=== PATIENT | female | born 1960 | race Caucasian/White ===

== ENCOUNTER → 2017-08-05 14:54 | Outpatient (CLI) | payer OTHER, SELFPAY ==
--- NOTE | 2017-08-05 14:56 | BI_ITS ---
MAMMOGRAPHY - BILATERAL SCREENING REASON FOR EXAM: Female, 57 years old. Routine annual screening examination. PERTINENT HISTORY: Grandmother with breast cancer. Aunt with breast cancer. TECHNIQUE: Digital bilateral breast galo (3D mammographic acquisition) in the CC and MLO projections. 2-D mediolateral oblique (MLO) and craniocaudad (CC) views of both breasts were obtained. CAD: Full Field Digital Mammography with Computer Added Detection was performed. COMPARISON: Comparison is made with prior study dated June 11, 2016 and June 03, 2015. FINDINGS: Breast Composition: The breasts are heterogeneously dense, which may obscure small masses. There are no dominant masses or suspicious calcifications. Stable appearance of the small bilateral benign appearing axillary lymph nodes. No other significant abnormalities are identified. There has been no significant change since the prior study. BI/SCREENING MAMM (CAD), BILAT IMPRESSION: Stable bilateral screening mammogram. Yearly follow-up mammogram recommended. (A) ASSESSMENT CATEGORY: BIRADS Category 2: Benign. A letter regarding these results will be sent to the patient by the facility within 30 days. Approximately 10% of breast cancers are not detected by mammography. A normal mammogram should not delay biopsy of a clinically suspicious abnormality. [id number] Electronically Signed: Raheel Gomez MD at 8:44 EDT Tel [phone], Service support ,
== END ==
PROVIDERS: Family Provider Internal Medicine; PCP Internal Medicine; Visit Provider Internal Medicine
DX: Z12.31 Encounter for screening mammogram for malignant neoplasm of breast (principal)
CPT/HCPCS: 77063; 77067

== ENCOUNTER → 2018-04-12 11:04 | Outpatient (CLI) | payer OTHER, SELFPAY ==
[2017-09-14 14:00] VITALS: BMI 23.6
[2018-04-12 11:41] LABS: Hematocrit 40.7 % (37-47); Hemoglobin 13.6 g/dl (12.0-15.0); Mean Corp Hgb Conc 33.4 g/gl (32-36); Mean Corpuscular Volume 89.6 fL (81-99); Platelet Count 260 K/mm3 (150-450); RBC Distribution Width SD 42.5 fl (35.1-43.9); Red Blood Count 4.54 M/mm3 (4.2-5.4); Scan Indicated on CBC? Y/N NO; White Blood Count 4.5 K/mm3 (4.4-11.0)
[2018-04-12 12:14] LABS: ALB/GLOB Ratio 1.2 RATIO (0.9-2.4); AST(SGOT) 16 U/L (15-37); Alanine Aminotransfer ALT/SGPT 18 U/L (13-56); Albumin, Serum 3.9 g/dL (3.2-5.0); Alkaline Phosphatase 72 U/L (45-117); Anion Gap 8 (5-15); BUN 15 mg/dL (7-18); BUN/Creat Ratio 20.9 RATIO (10-20); Calcium,Total 8.4 mg/dL (8.5-10.1); Chloride 103 mmol/L (98-107); Cholesterol 248 mg/dL (200); Creatinine, Serum 0.72 mg/dL (0.55-1.02); EST Glomerular Filtration Rate 89 mL/min (>60); Est Glom Filt Rate - Afr Amer 107 mL/min (>60); Free T3 2.7 pg/mL (2.18-3.98); Globulin 3.2 g/dL (2.2-4.2); Glucose 86 mg/dL (74-106); High Density Lipoprotein 73 mg/dL; Potassium 3.9 mmol/L (3.5-5.1); Protein, Total 7.1 g/dL (6.4-8.2); Sodium Level 141 mmol/L (136-145); Thyroid Stim Hormone (TSH) 1.57 uIU/mL (0.358-3.74); Triglycerides 117 mg/dL; Very Low Density Lipoprotein 23 mg/dL (5-40)
[2018-04-12 12:19] LABS: Vitamin D,25 Hydroxy 49.2 ng/mL (29.95-100.01)
--- OUTSIDE RECORDS SUMMARY | 2018-07-14 19:54 | XMS RPT_ITS ---
:1960 Author Organization OHIP Care Team Providers Name Role Phone MARY SANCHEZ (RESOURCE MANAGEMENT PLANNER) Attending Unavailable TALAMPAS, FILIBERTO D Attending Unavailable Talampas, Filiberto Attending Unavailable Talampas, Filiberto Referring Unavailable Talampas, Filiberto Primary Care Unavailable Talampas, Filiberto Attending Unavailable Talampas, Filiberto Referring Unavailable Talampas, Filiberto Primary Care Unavailable Talampas, Filiberto Attending Unavailable Talampas, Filiberto Referring Unavailable Talampas, Filiberto Primary Care Unavailable Jeanne Barrios Attending Unavailable Talampas, Filiberto Referring Unavailable Talampas, Filiberto Primary Care Unavailable PROBLEMS PROBLEMS DATE TYPE CONDITION / CODE ATTENDING STATUS SOURCE 04/12/2018 Unknown Z00.00 - Encounter Talampas, Filiberto Active [place] for general adult [facility] without abnormal Repository findings / Z00.00(ICD-10) 09/14/2017 Unknown Z01.411 - Encounter Denis Active [place] for gynecological [facility] (general) (routine) Repository with abnormal findings / Z01.411(ICD-10) 09/13/2017 Active Allergic contact MARY SANCHEZ Active [facility] [place] dermatitis due to (RESOURCE MANAGEMENT PLANNER) Main [place] plants, except food Repository / L23.7(ICD-10) 08/05/2017 Unknown Z12.31 - Encounter Filiberto Benitez Active [place] for screening [facility] mammogram for [facility] malignant neoplasm Repository of breast / Z12.31(ICD-10) PROCEDURES PROCEDURES No Procedure Records FoundRESULTS RESULTS DEXA BONE DENSITY Observed: 05/10/2018 Status: F Source: [place] STUDY 11:02 AM [facility] REPOSITORY [facility] Imaging Services [address] [place] [address] Dexa Bone Density Study MR#: [id number] Acct: [id number] Name: CECY HONG Rep #: [id number] : 1960 F 57 From: Raheel Gomez MD PCP: Filiberto eBnitez MD Status: REG CLI Study: Dexa Bone Density Study Date of Exam: 05/10/18 Exam# [id number] Ordering Dr: Filiberto Benitez MD STUDY: DUAL ENERGY X-RAY ABSORPTIOMETRY / DXA REASON FOR EXAM: Female, 57 years old. The patient is postmenopausal. Loss of height. TECHNIQUE: Bone Mineral Density (BMD) measurements of lumbar spine and bilateral hips were obtained. COMPARISON: Comparison is made with prior study dated April 13, 2012. FINDINGS: Lumbar Spine (L1-L4): g/cm2 (0.962) / T-score (-1.8) / Z-score (-0.8) Findings are suggestive of osteopenia with a moderate fracture risk. Left Femur Total: g/cm2 (0.902) / T-score (-0.8) / Z- score (0.0) Left Femoral Neck: g/cm2 (0.950) / T-score (-0.6) / Z- score (0.5) Right Femur Total: g/cm2 (0.954) / T-score (-0.4) / Z- score (0.4) Right Femoral Neck: g/cm2 (0.956) / T-score (-0.6) / Z-score (0.5) The T-Scores on the most recent prior examination were: Lumbar Spine (L1-L4): There has been worsening of bone density since the previous examination. Left Femur Total: which represents a worsening of 5.2%. Right Femur Total: which represents a worsening of 3.7%. BD/Dexa Bone Density Study IMPRESSION: The patient is considered osteopenic as outlined below according to World Werner Organization (WHO) criteria with a moderate fracture risk. There has been worsening of bone density since the previous examination. Reference Information: The T-score is the number of standard deviations above or below the standard which is normal for young adults at their peak bone mineral density. The World Health Organization (WHO) interprets the T-scores as follows: Above -1 Normal bone density Between -1 and -2.5 Osteopenia Equal to / or below -2.5 Osteoporosis As a practical clinical guideline, osteopenia may be graded as follows: Mild -1 through -1.5 Moderate -1.6 through -2.0 Severe -2.1 through -2.4 The Z-score is the number of standard deviations above or below age-matched controls. A Z-score of less than -1.5 would be considered abnormal. References: 1. NIH Osteoporosis and Related Bone Diseases http://www.osteo.org 2. International Society for Clinical Densitometry http://www.iscd.org 3. National Osteoporosis Foundation http://www.nof.org Electronically Signed: Raheel Gomez MD at 10:56 EST Tel [phone], Service support , CC: Filiberto Benitez MD Vp Of Digital Marketing: Signed CBC-COMPLETE BLOOD CNT Collected: 04/12/2018 Status: F Source: [place] NO DIFF 11:15 AM [facility] REPOSITORY TYPE CODE TESTS RESULT OUT OF RANGE REFERENCE UNITS LAB L100.1000 4.4-11.0 K/mm3 Normal WBC 4.5 LAB L100.1200 4.2-5.4 M/mm3 Normal RBC 4.54 LAB L100.1300 12.0-15.0 g/dl Normal HGB 13.6 LAB L100.1400 37-47 % Normal HCT 40.7 LAB L100.1500 81-99 fL Normal MCV 89.6 LAB L100.1600 27.0-32.0 pg Normal MCH 30.0 LAB L100.1700 32-36 g/gl Normal MCHC 33.4 LAB L100.1810 11.6-14.6 % Normal RDW CV 13.0 LAB L100.1820 35.1-43.9 fl Normal RDW SD 42.5 LAB L100.1900 150-450 K/mm3 Normal PLT 260 LAB L100.2000 6.2-12.0 fl Normal MPV 11.0 Performed By: #### L100.0500 #### [facility] [address] [place], [place], [address] COMPREHENSIVE METABOLIC Collected: 04/12/2018 Status: F Source: [facility] 11:15 AM [facility] REPOSITORY TYPE CODE TESTS RESULT OUT OF RANGE REFERENCE UNITS LAB L501.0100 74-106 mg/dL Normal GLU 86 Result Comment: Please note revised GLUCOSE reference range effective 2017. LAB L501.1000 7-18 mg/dL Normal BUN 15 LAB L501.1100 0.55-1.02 mg/dL Normal CREAT,SERUM 0.72 Result Comment: The validity of the calculated GFR AND GFRAA in patients over 70 years has not been determined. Clinical correlation is essential. LAB L501.1110 >60 mL/min Normal EST GFR 89 Result Comment: Non- GFR Calc LAB L501.1115 >60 mL/min Normal EST GFR - AA 107 Result Comment: GFR Calc LAB L501.1300 10-20 RATIO High BUN/CRE 20.9 LAB L501.1500 6.4-8.2 g/dL T Normal PROT 7.1 LAB L501.1800 3.2-5.0 g/dL Normal ALB 3.9 LAB L501.1950 2.2-4.2 g/dL Normal GLOB 3.2 LAB L501.2000 0.9-2.4 RATIO Normal A/G 1.2 LAB L501.2200 8.5-10.1 mg/dL Low CA 8.4 LAB L501.4100 15-37 U/L Normal AST 16 LAB L501.4305 45-117 U/L Normal ALK P 72 LAB L501.4405 13-56 U/L Normal ALT 18 LAB L501.4600 0.20-1.00 mg/dL T Normal BILI 0.50 LAB L501.5300 136-145 mmol/L NA Normal 141 LAB L501.5600 3.5-5.1 mmol/L K Normal 3.9 LAB L501.5900 98-107 mmol/L CL Normal 103 LAB L501.6100 21.0-32.0 mmol/L Normal CO2 30.0 LAB L501.6200 5-15 Normal GAP 8 Performed By: #### L500.4050, L500.4100, L501.75885, L501.9520, L506.0400 #### [facility] [address] [place], [place], [address] LIPID PROFILE Collected: 04/12/2018 Status: F Source: [place] 11:15 AM [facility] REPOSITORY TYPE CODE TESTS RESULT OUT OF RANGE REFERENCE UNITS LAB L501.4900 200 mg/dL High CHOL 248 Result Comment: <200 mg/dL Desirable 200-240 mg/dL Borderline >240 mg/dL High Risk LAB L501.5000 mg/dL Normal TRIG 117 Result Comment: The drugs N-Acetylcysteine and Metamizole may falsely depress this assay. Serum Triglycerides Reference Interval Normal <150 mg/dL Borderline high 150 - 199 mg/dL High 200 - 499 mg/dL Very High > or = 500 mg/dL LAB L501.6400 mg/dL Normal HDL 73 Result Comment: The drugs N-Acetylcysteine and Metamizole may falsely depress this assay. Reference Range HDL <40 mg/dL Low HDL Cholesterol HDL >or= 60 mg/dL High HDL Cholesterol LAB L501.6500 0-130 mg/dL High LDL 152 LAB L501.6600 5-40 mg/dL Normal VLDL 23 Performed By: #### L500.4050, L500.4100, L501.45201, L501.9520, L506.0400 #### [facility] [address] [place], [place], [id number] FREE T3 Collected: 04/12/2018 Status: F Source: [place] 11:15 AM [facility] REPOSITORY TYPE CODE TESTS RESULT OUT OF RANGE REFERENCE UNITS LAB L501.92053 2.18-3.98 pg/mL Normal FREE T3 2.7 Performed By: #### L500.4050, L500.4100, L501.78849, L501.9520, L506.0400 #### [facility] [address] [place], [address] THYROID STIM HORMONE Collected: 04/12/2018 Status: F Source: [place] (TSH) 11:15 AM [facility] REPOSITORY TYPE CODE TESTS RESULT OUT OF RANGE REFERENCE UNITS LAB L501.9520 0.358-3.74 uIU/mL Normal TSH 1.57 Performed By: #### L500.4050, L500.4100, L501.34411, L501.9520, L506.0400 #### [facility] [address] [place], [address] T4 FREE DIRECT Collected: 04/12/2018 Status: F Source: [place] 11:15 AM [facility] REPOSITORY TYPE CODE TESTS RESULT OUT OF RANGE REFERENCE UNITS LAB L506.0400 0.76-1.46 ng/dL Normal T4 FREE 1.10 DIRECT Performed By: #### L500.4050, L500.4100, L501.03429, L501.9520, L506.0400 #### [facility] [address] [place], [place], [address] VITAMIN D,25 HYDROXY Collected: 04/12/2018 Status: F Source: [place] 11:15 AM [facility] REPOSITORY TYPE CODE TESTS RESULT OUT OF RANGE REFERENCE UNITS LAB L506.1000 29.95-100.01 ng/mL Normal Vitamin D 49.2 25-OH Result Comment: Vitamin D 25(OH) Status Range Deficiency <20 ng/mL (50nmol/L) Insuffciency 20 - 30 ng/mL (50 - 75 nmol/L) Sufficiency 30 - 100 ng/mL (75 - 250 nmol/L) Toxicity >100 ng/mL (>250 nmol/L) Performed By: #### L506.1000 #### [facility] [address] [place], [address] PROGRESS Observed: 04/11/2018 Status: COMPLETED Source: [place] 2:24 PM [facility] REPOSITORY HNO ID: [id number] Author: Filiberto Benitez Service: (none) Author Type: Physician Type: Progress Notes Filed: 05/01/2018 7:19 PM Note Text: HISTORY Cecy Hong is a 57 year old lady here for yearly exam and follow up appointment. Overall doing well. Clinically euthyroid. PAST MEDICAL HISTORY Diagnosis Date - Benign paroxysmal positional vertigo 06/02/2006 - Carpal tunnel syndrome - Cochlear hearing loss Nov 2008 from cochlear hydrops (resolved; treated by Dr. 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 Gaixola diagnosed - Postmenopausal after 49 years old - Symptomatic menopausal or female climacteric states 2008 - Unspecified hypothyroidism Current Outpatient Prescriptions: calcium carbonate 600 mg-cholecalciferol 200 units (CALCIUM 600 + D,3,) 600 mg(1,500mg) -200 unit tab Take 1 tablet by mouth once daily. cholecalciferol (VITAMIN D3) 1,000 unit tab Take 1 tablet by mouth once daily. estradiol (ESTRACE) 0.01 % (0.1 mg/gram) vaginal cream Use fingertip amount nightly x 2 weeks, then every other night x 2 weeks, then 1-2x weekly for maintenance hydrochlorothiazide 25 mg tablet Take 1 tablet by mouth once daily as needed. for vertigo flare up (Dr. Rubalcava) levothyroxine (SYNTHROID) 88 mcg tablet Take 1 tablet by mouth daily before breakfast. Naproxen Sodium (ALEVE) 220 mg ORAL tablet Take 1 tablet by mouth twice daily as needed. No current facility-administered medications for this visit. ALLERGIES Allergen Reactions - Amoxicillin Rash - Shellfish Vomiting shortness of breath FAMILY HISTORY Problem Relation Age of Onset - Diabetes Mother - Hypertension Mother - Thyroid Mother - Prostate Cancer Father - Hypertension Father - other (skin cancer) Father Part of ear removed; also several on arms - Breast Cancer Paternal Aunt - Cancer Maternal Uncle LUNG - Thyroid Sister - Thyroid Sister - other (bladder cancer) Brother at 62 - Breast Cancer Paternal Grandmother Social History Marital status: Spouse name: Lilliam Years of education: 16 Number of children: 2 Occupational History Occupation Employer Comment [employer] Social History Main Topics Smoking status: Never Smoker Smokeless tobacco: Never Used Alcohol use: Yes Comment: Socially Drug use: No Sexual activity: Yes Partners with: Male control/protection: Condom REVIEW OF SYSTEMS Aside from above, Constitutional, HEENT, CV, PULM, GI, , PSYCH, DERM, HEM/ONC, NEURO negative. PHYSICAL EXAMINATION: Blood pressure 108/74, pulse 76, resp. rate 20, height 165.1 cm (5' 5), weight 64.4 kg (142 lb), last menstrual period 12/24/2009. Estimated body mass index is 23.63 kg/m? as calculated from the following: Height as of this encounter: 165.1 cm (5' 5). Weight as of this encounter: 64.4 kg (142 lb). Last 5 Encounter BP Readings: Date: BP: 04/11/2018 108/74 09/13/2017 120/70 04/09/2017 120/80 01/05/2017 122/70 08/11/2016 108/62 Last 5 Encounter Wt Readings: Date: Wt: 04/11/2018 64.4 kg (142 lb) 09/13/2017 65.3 kg (144 lb) 04/09/2017 65.3 kg (144 lb) 01/05/2017 65.8 kg (145 lb) 08/11/2016 64 kg (141 lb) General appearance: well appearing, in no acute distress, well-hydrated, well nourished Skin: Skin color, texture, turgor normal. No significant rashes or lesions. Head: Normal Eyes: Anicteric sclera. Pupils are equally round and reactive to light. Extraocular movements are intact. Ears: External ears normal. Canals clear. TM's unremarkable. Nose/Sinuses: negative Oropharynx: Lips, mucosa, and tongue normal. Teeth and gums normal. Oropharynx normal. Neck: Neck supple, no adenopathy; thyroid symmetric, normal size, no bruits. Lungs: Lungs clear to auscultation Heart: negative. RRR without murmur, gallop, or rubs. No ectopy. Abdomen: Abdomen soft, non-tender. Bowel sounds normal. No masses, organomegaly Extremities: Extremities normal. No deformities, edema, or skin discoloration. Good capillary refill. Musculoskeletal: grossly normal Peripheral pulses: Normal Neuro: Gait normal. Reflexes normal and symmetric. Sensation grossly intact. No gross focal neurological deficits. Labs reviewed. ASSESSMENT AND PLAN See diagnoses and orders Encounter Diagnosis ICD-10-CM 1. Routine medical exam Z00.00 COMP METABOLIC PANEL CBC TSH BLD T4 FREE/FREE THYROX T3 FREE BLD LIPID PANEL BASIC VITAMIN D 25 HYDROXY 2. Acquired hypothyroidism E03.9 TSH BLD T4 FREE/FREE THYROX T3 FREE BLD 3. Vitamin D deficiency E55.9 VITAMIN D 25 HYDROXY 4. Encounter for long-term current use of medication Z79.899 COMP METABOLIC PANEL CBC 5. Screening, lipid Z13.220 6. Diabetes mellitus screening Z13.1 COMP METABOLIC PANEL 7. Encounter for screening mammogram for breast cancer Z12.31 LC SCREENING W YISEL 8. Asymptomatic postmenopausal status Z78.0 DXA-AXIAL SKELETON Patient here for yearly exam and follow up. Above issues addressed with patient. Patient involved in shared decision making for management of medical issues. History and medications reviewed. Epic updated as needed Refills taken care of and meds adjusted as indicated after reviewed history, exam and labs. Health Maintenance reviewed. Updated record and/or ordered tests as recorded. Encouraged on efforts at healthy diet and regular exercise and adequate sleep. MD Filiberto Good MD CNOV Observed: 04/11/2018 Status: COMPLETED Source: [place] 1:40 PM [facility] [place] REPOSITORY Office Visit (INTMWS) CECY HONG ([id number]) 1960 F Date Time Provider Department 04/11/18 1:40 PM FILIBERTO BENITEZ INTMWS During your visit today, we recorded the following information about you: Pulse Respiration Blood pressure Weight 76/minute 20/minute 108/74 64.4 kg Height 1.651 m Filiberto Benitez MD 05/01/2018 7:19 PM Signed HISTORY Cecy Hong is a 57 year old lady here for yearly exam and follow up appointment. Overall doing well. Clinically euthyroid. PAST MEDICAL HISTORY Diagnosis Date - Benign paroxysmal positional vertigo 06/02/2006 - Carpal tunnel syndrome - Cochlear hearing loss Nov 2008 from cochlear hydrops (resolved; treated by Dr. 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 Gaxiola diagnosed - Postmenopausal after 49 years old - Symptomatic menopausal or female climacteric states 2008 - Unspecified hypothyroidism Current Outpatient Prescriptions: calcium carbonate 600 mg-cholecalciferol 200 units (CALCIUM 600 + D,3,) 600 mg(1,500mg) -200 unit tab Take 1 tablet by mouth once daily. cholecalciferol (VITAMIN D3) 1,000 unit tab Take 1 tablet by mouth once daily. estradiol (ESTRACE) 0.01 % (0.1 mg/gram) vaginal cream Use fingertip amount nightly x 2 weeks, then every other night x 2 weeks, then 1-2x weekly for maintenance hydrochlorothiazide 25 mg tablet Take 1 tablet by mouth once daily as needed. for vertigo flare up (Dr. Rubalcava) levothyroxine (SYNTHROID) 88 mcg tablet Take 1 tablet by mouth daily before breakfast. Naproxen Sodium (ALEVE) 220 mg ORAL tablet Take 1 tablet by mouth twice daily as needed. No current facility-administered medications for this visit. 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 PHYSICAL EXAMINATION: Blood pressure 108/74, pulse 76, resp. rate 20, height 165.1 cm (5' 5), weight 64.4 kg (142 lb), last menstrual period 12/24/2009. Estimated body mass index is 23.63 kg/m? as calculated from the following: Height as of this encounter: 165.1 cm (5' 5). Weight as of this encounter: 64.4 kg (142 lb). Last 5 Encounter BP Readings: Date: BP: 04/11/2018 108/74 09/13/2017 120/70 04/09/2017 120/80 01/05/2017 122/70 08/11/2016 108/62 Last 5 Encounter Wt Readings: Date: Wt: 04/11/2018 64.4 kg (142 lb) 09/13/2017 65.3 kg (144 lb) 04/09/2017 65.3 kg (144 lb) 01/05/2017 65.8 kg (145 lb) 08/11/2016 64 kg (141 lb) General appearance: well appearing, in no acute distress, well-hydrated, well nourished Skin: Skin color, texture, turgor normal. No significant rashes or lesions. Head: Normal Eyes: Anicteric sclera. Pupils are equally round and reactive to light. Extraocular movements are intact. Ears: External ears normal. Canals clear. TM's unremarkable. Nose/Sinuses: negative Oropharynx: Lips, mucosa, and tongue normal. Teeth and gums normal. Oropharynx normal. Neck: Neck supple, no adenopathy; thyroid symmetric, normal size, no bruits. Lungs: Lungs clear to auscultation Heart: negative. RRR without murmur, gallop, or rubs. No ectopy. Abdomen: Abdomen soft, non-tender. Bowel sounds normal. No masses, organomegaly Extremities: Extremities normal. No deformities, edema, or skin discoloration. Good capillary refill. Musculoskeletal: grossly normal Peripheral pulses: Normal Neuro: Gait normal. Reflexes normal and symmetric. Sensation grossly intact. No gross focal neurological deficits. Labs reviewed. ASSESSMENT AND PLAN See diagnoses and orders Encounter Diagnosis ICD-10-CM 1. Routine medical exam Z00.00 COMP METABOLIC PANEL CBC TSH BLD T4 FREE/FREE THYROX T3 FREE BLD LIPID PANEL BASIC VITAMIN D 25 HYDROXY 2. Acquired hypothyroidism E03.9 TSH BLD T4 FREE/FREE THYROX T3 FREE BLD 3. Vitamin D deficiency E55.9 VITAMIN D 25 HYDROXY 4. Encounter for long-term current use of medication Z79.899 COMP METABOLIC PANEL CBC 5. Screening, lipid Z13.220 6. Diabetes mellitus screening Z13.1 COMP METABOLIC PANEL 7. Encounter for screening mammogram for breast cancer Z12.31 LC SCREENING W YISEL 8. Asymptomatic postmenopausal status Z78.0 DXA-AXIAL SKELETON Patient here for yearly exam and follow up. Above issues addressed with patient. Patient involved in shared decision making for management of medical issues. History and medications reviewed. Epic updated as needed Refills taken care of and meds adjusted as indicated after reviewed history, exam and labs. Health Maintenance reviewed. Updated record and/or ordered tests as recorded. Encouraged on efforts at healthy diet and regular exercise and adequate sleep. MD Filiberto Good MD Liza D Talampas, MD 04/11/2018 2:39 PM Signed BONE MINERAL DENSITY PATIENT INSTRUCTIONS Bone mineral density testing measures the amount of calcium in certain parts of your bones. This information determines how strong your bones are. The test is used to detect osteoporosis, a disease in which the bone's mineral content and density are low, increasing a person's risk of fractures. The lumbar spine (lower back) and the hip are the skeletal sites usually examined. For the test, remember that: 1. You cannot take this test if you are . 2. Eat a normal diet on the day of the test. 3. Take your medications as you normally would. 4. DO NOT take calcium supplements (such as Tums) for 24 hours before the test. 5. On the day of the test, leave valuables (jewelry or credit cards) at home. 6. The test should be performed prior to oral, rectal or IV contrast studies, or at least 7 days after any of these studies. For the test, you may be asked to wear a hospital gown. You will lie on your back, on a padded table, in a comfortable position. Generally, you can resume your usual activities immediately. Referring Provider: SELF [200] Allergies As of Date: 04/11/2018 Noted Allergy Reaction AMOXICILLIN 02/26/2005 2 - Rash SHELLFISH 08/03/2006 11 - Vomiting Comments: shortness of breath Date Reviewed: 04/11/2018 Reviewed by: Khadra Luu LPN - Fully Assessed Reason for Visit: Yearly Exam [187] Radiology Mammogram [1485] Cmt: at [facility] Reason For Visit History Recorded Primary Visit Diagnosis:Routine medical exam [Z00.00] Other Visit Diagnoses:Acquired hypothyroidism [E03.9] Vitamin D deficiency [E55.9] Encounter for long-term current use of medication [Z79.899] Screening, lipid [Z13.220] Diabetes mellitus screening [Z13.1] Encounter for screening mammogram for breast cancer [Z12.31] Asymptomatic postmenopausal status [Z78.0] Order(s):COMP METABOLIC PANEL [SQCMP] Order #: [id number] FUTURE CBC [SQCBC] Order #: [id number] FUTURE TSH BLD [SQTSH] Order #: [id number] FUTURE T4 FREE/FREE THYROX [SQFT4] Order #: [id number] FUTURE T3 FREE BLD [SQFREET3] Order #: [id number] FUTURE LIPID PANEL BASIC [SQLIPB] Order #: [id number] FUTURE VITAMIN D 25 HYDROXY [SQVITD] Order #: [id number] FUTURE LC SCREENING W YISEL [[id number]] Order #: [id number] FUTURE DXA-AXIAL SKELETON [[id number]] Order #: [id number] FUTURE Prescriptions as of 04/11/2018 Sig: LEVOTHYROXINE 88 MCG TABLET Take 1 tablet by mouth daily * ESTRADIOL 0.01% (0.1 MG/GRAM)* Use fingertip amount nightly * CHOLECALCIFEROL (VITAMIN D3) * Take 1 tablet by mouth once d* CALCIUM CARBONATE 600 MG (1,5* Take 1 tablet by mouth once d* HYDROCHLOROTHIAZIDE 25 MG TAB* Take 1 tablet by mouth once d* * NAPROXEN SODIUM 220 MG TABLET Take 1 tablet by mouth twice * Medication notes this encounter HYDROCHLOROTHIAZIDE 25 MG TABLET >> Filiberto Benitez MD 04/11/2018 2:37 PM >> FILIBERTO BENITEZ MD WedApr 11, 2018 2:37 PM Has not needed for years. Still has on hand for just in case ALPRAZOLAM 0.5 MG TABLET >> Filiberto Benitez MD 04/11/2018 2:34 PM Never took one Problem List As Of Date 04/11/2018 Noted Resolved Irregular menstrual cycle [N92.6] 02/10/2011 More... FIBROSCLEROSIS OF BREAST [N60.39] Acquired hypothyroidism [E03.9] SCIATICA [M54.30] INVALID FOR* BENIGN PARXYSMAL VERTIGO [H81.10] INVALID FOR* TENSION HEADACHE [G44.209] INVALID FOR* MASS IN BREAST [N63.0] INVALID FOR*02/10/2011 Ocular migraine [G43.809] INVALID FOR* More... CTS (carpal tunnel syndrome) [G56.00] 12/26/2013 More... Neuropathy, ulnar at elbow [G56.20] More... Osteopenia [M85.80] INVALID FOR* Vitamin D deficiency [E55.9] INVALID FOR* Other decreased white blood cell count [D72.818]INVALID FOR* Genital atrophy of female [N94.9] INVALID FOR* Dyspareunia due to medical condition in female *INVALID FOR* Other instructions from your clinician: BONE MINERAL DENSITY PATIENT INSTRUCTIONS Bone mineral density testing measures the amount of calcium in certain parts of your bones. This information determines how strong your bones are. The test is used to detect osteoporosis, a disease in which the bone's mineral content and density are low, increasing a person's risk of fractures. The lumbar spine (lower back) and the hip are the skeletal sites usually examined. For the test, remember that: 1. You cannot take this test if you are . 2. Eat a normal diet on the day of the test. 3. Take your medications as you normally would. 4. DO NOT take calcium supplements (such as Tums) for 24 hours before the test. 5. On the day of the test, leave valuables (jewelry or credit cards) at home. 6. The test should be performed prior to oral, rectal or IV contrast studies, or at least 7 days after any of these studies. For the test, you may be asked to wear a hospital gown. You will lie on your back, on a padded table, in a comfortable position. Generally, you can resume your usual activities immediately. Medications Discontinued During This Encounter ALPRAZolam (XANAX) 0.5 mg tablet 30 t* 0 01/05/2017 04/11/2018 Class: Print RX Route: ORAL Sig: Take 1 tablet by mouth at bedtime as needed. Patient not taking: Reported on 04/11/2018 Disc: Reason for discontinue is not on file. COMPOUNDED PRESCRIPTION 1 Ea* 0 04/09/2017 04/11/2018 Class: Print RX Sig: Lab order: TSH, Free T3 and Free T4 Diagnosis: E03.9 Disc: Reason for discontinue is not on file. COMPOUNDED PRESCRIPTION 1 Ea* 0 12/30/2016 04/11/2018 Class: Print RX Sig: Lab order: TSH, Free T4, Free T3 Diagnosis:E03.9 Due mid Jan 2017 Disc: Reason for discontinue is not on file. COMPOUNDED PRESCRIPTION 2 Pa* 0 12/15/2011 04/11/2018 Class: Print RX Sig: KNEE HIGH COMPRESSION STOCKINGS 20-30 MM. DX: EDEMA 782.3 (dispense 2 pairs) Disc: Reason for discontinue is not on file. desoximetasone (TOPICORT) 0.25 % cre* 30 g 1 09/13/2017 04/11/2018 Route: TOPICAL Sig: Apply 1 application to affected area twice daily. for up to two weeks, then discontinue Patient not taking: Reported on 04/11/2018 Disc: Course of therapy completed predniSONE (DELTASONE) 10 mg tablet 21 t* 0 09/13/2017 04/11/2018 Sig: Take 40 mg x 3 days, 20 mg x 3 days, 10 mg x 3 days. Take with food, once daily Patient not taking: Reported on 04/11/2018 Disc: Course of therapy completed predniSONE (DELTASONE) 2.5 mg tablet 30 t* 0 10/22/2017 04/11/2018 Si mg daily for 5 days then 2.5 mg for 5 days. Extend as directed for recurrence of rash Patient not taking: Reported on 04/11/2018 Disc: Course of therapy completed famotidine (PEPCID) 20 mg tablet 30 t* 0 09/13/2017 04/11/2018 Route: ORAL Sig: Take 1 tablet by mouth at bedtime as needed. Patient not taking: Reported on 04/11/2018 Disc: Course of therapy completed Disposition: Return in about 1 year (around 04/11/2019) for Yearly exam and follow up (40 min). Follow-up and Disposition History Recorded Encounter Status:Closed by FILIBERTO BENITEZ MD on 05/01/18 [facility] OFFICE VISIT Observed: 09/14/2017 Status: F Source: MARIA LUISA REPORT 2:37 PM [facility] [place] REPOSITORY [facility] 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) Chief Complaint: est annual Estimating Manager Required: No Is patient in pain?: No Allergies shellfish derived Allergy (Mild, Verified 09/14/17 14:01) Other amoxicillin [Amoxicillin] Allergy (Verified 01/31/13 09:33) Rash Medications estradiol 0.01% (0.1 mg/gram) vaginal cream See Dose Instructions VAGINAL .COMPLEX #42.5 g 05/31/17 [Rx] calcium carbonate 500 mg calcium (1,250 mg) tablet 500 mg PO BID tab 09/14/17 [History Confirmed 09/14/17] cholecalciferol (vitamin D3) 4,000 unit capsule 4,000 unit PO QDAY 09/14/17 [History Confirmed 09/14/17] levothyroxine 88 mcg tablet 88 mcg PO QDAY 09/14/17 [History Confirmed 09/14/17] Is last menstrual period known: No Post menopausal: Yes Patient : No : No PFSH Medical History Thyroid disorder (Acute) Surgical History History of bilateral carpal tunnel release (Acute) History of delivery (Acute) History of hysteroscopy (Acute) S/P foot surgery, left (Acute) Family History Mother Diabetes Hypertension Father Cancer prostate Social History Smoking Status: Unknown if ever smoked alcohol intake: current details: social substance use type: does not use caffeine: Yes what type of physical activity do you participate in: walking, bicycling frequency: 3-4 times per week seatbelt use: always do you feel safe at home: Yes additional social history: [employer]- Retired Patient is retired Pregancy History 2 Elective abortions Hx Para 2 Spontaneous abortions Past Pregnancies Del. 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 retired, traveling [place], [place]. on estrace for dyspareunia which is working Last PAP: 08/10 History of abnormal PAP: no Last mammogram: done normal History of abnormal mammogram: no Colon cancer screening: up to date Other preventative health care screenings: per pcp Female Reproductive History Questions: Metorrhagia: No, Sexually active: Yes, Dyspareunia: Yes, PCB: No ROS Const Constitutional: Reports as per HPI; denies poor appetite, fatigue, increased appetite, weight gain or weight loss Cardio Card: Denies chest pain Resp Resp: Denies dyspnea or cough GI GI: Reports as per HPI; denies bloating, abdominal pain, constipation, vomiting or nausea : Reports as per HPI and other; denies blood in urine, vaginal odor, vaginal itching, vaginal dryness, vaginal discharge, urinary urgency, urinary incontinence, urinary frequency, pelvic pain, painful urination, difficulty urinating, prolapse symptoms or nipple discharge Skin Skin/Breast: Denies breast pain, breast skin changes, nipple discharge, breast lump or changing lesions Exam Const General: cooperative, healthy appearing, comfortable, no acute distress, well developed, well groomed [facility] Head: normal to inspection, normocephalic Ears: hearing grossly normal bilaterally, external ears normal Nose: external nose normal Face and sinus: normal facial exam Neck Neck: normal visual inspection, full ROM, no lymphadenopathy Thyroid: thyroid normal Chest Chest palpation AND inspection: normal inspection of the chest Breast inspection: normal inspection of the breasts, normal inspection of the axillae Breast palpation: normal palpation of the breasts, normal palpation of the axillae, no axillary lymphadenopathy Resp Effort AND Inspection: normal respiratory effort GI Inspection: normal to inspection, non-distended Palpation: no guarding, soft, no hepatosplenomegaly General: bladder normal to palpation External Female Exam: normal external appearance (thin skin perineum), normal appearance of the urethra, no lesions Urethra: normal appearance of the urethra, normal palpation Speculum Exam - Vagina: normal appearance of the vagina, normal vaginal discharge Speculum Exam - Cervix: normal appearance of the cervix, no cervical discharge, no lesions, nontender Bimanual Exam- Vagina AND Uterus: No cervical tenderness, normal bimanual exam, uterine size normal, bladder normal to palpation, uterine mobility normal, uterine consistency normal, uterus non-tender, no cervical motion tenderness Bimanual Exam- Adnexa, other: normal adnexae, no adnexal masses, adnexae non-tender Skin General: no rashes or lesions noted Neuro General: alert, moves all extremities, no focal motor deficits Extrem General: no pedal edema, normal to inspection Psych Appearance: grossly normal Mental Status: mental status grossly normal Affect: normal affect Speech and Movement: speech and movement normal Attitude: cooperative Assessment AND Plan Problems 1. Encounter for gynecological examination with abnormal finding Z01.411 2. Dyspareunia thinning skin of perineum, estrace Plan Cervical cancer screening: up to date pap 2017 Breast cancer screening: mamm up to date other health maintenance examination reviewed and up to date. Encouraged maintenance of a healthy weight and active lifestyle and handout given. Calcium/vitamin D recommendations provided. Annual exam handout including recommendations for good health guidelines and basic screening information given. Problem list up to date, see problem list details for any additional plan information. Follow up in one year for annual health maintenance exam or sooner if needed. Coding Level of Care Code Off vis,est,prev 40-64yrs Diagnoses Encounter for gynecological examination with abnormal finding Z01.411 Gynecological examination findings: abnormal findings PRESENT Dyspareunia 09/14/17 1437 <Electronically signed by Jeanne Barrios MD> Date Jeanne Barrios MD Cosigner Signature: Date (if applicable) CC: SAVITAOV Observed: 09/13/2017 Status: COMPLETED Source: [place] 11:00 AM [facility] [place] REPOSITORY Office Visit (INTMWS) CECY HONG ([id number]) 1960 F Date Time Provider Department 09/13/17 11:00 AM MARY SANCHEZ ([facility]) INTMWS During your visit today, we recorded the following information about you: Pulse Respiration Blood pressure Weight 76/minute 16/minute 120/70 65.3 kg Mary Sanchez APRN.CNS 09/13/2017 11:47 AM Signed OUTPATIENT VISIT DATE September 13, 2017 OUTPATIENT VISIT TYPE ESTABLISHED PRIMARY CARE PHYSICIAN: Filiberto Benitez MD CHIEF COMPLAINT: Patient presents with: Rash History of Present Illness: Cecy Hong is a 57 year old female who was last seen March 2017 by primary doctor. 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 She reports treating at home with anti-itch cream with proxyine and Caladryl. She's also been taking Claritin. Benadryl at night. Has gotten some relief. Rash seems to be improving in some areas but spreading to new areas for the last couple of days.. Initially showed up on her arms and near both knees now present on her abdomen and back. No shortness of breath present.No report of new exposures, recent contact with unusual or new material, recent changes in detergents, soap, or shampoo, any recent sore throats or illnesses, travel, new medications, allergies, other family members with the same type of rash, febrile illnesses, using new soaps, wearing new clothes or using new medications. She's had this rash in the past been clearing weeds, however this year seems worse. PAST MEDICAL HISTORY Diagnosis Date - Benign paroxysmal positional vertigo 06/02/2006 - Carpal tunnel syndrome - Cochlear hearing loss Nov 2008 from cochlear hydrops (resolved; treated by Dr. 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 Gaxiola diagnosed - Postmenopausal after 49 years old - Symptomatic menopausal or female climacteric states 2008 - Unspecified hypothyroidism PAST SURGICAL HISTORY Procedure Laterality Date - DELIVERY ONLY x2 , low cervical - COLONOSCOP W/ OR W/O [facility] SPEC 2011 Colonoscopy - HYSTEROSCOPY, DIAGNOSTIC (SEPARATE 10/12/2006 Hysteroscopy - PAST SURGICAL HISTORY OF 05/2007 neuroma removed from left foot Dr. Joyner - PAST SURGICAL HISTORY OF 07/2009 basal cell carcinoma excised from forehead - PAST SURGICAL HISTORY OF 06/29/[address]pal tunnel release. Dr. Rafael De Los Santos - PAST SURGICAL HISTORY OF Right carpal tunnel release FAMILY HISTORY Problem Relation Age of Onset - Diabetes Mother - Hypertension Mother - Thyroid Mother - Prostate Cancer Father - Hypertension Father - skin cancer [OTHER] Father Part of ear removed; also several on arms - Breast Cancer Paternal Aunt - Cancer Maternal Uncle LUNG - Thyroid Sister - Thyroid Sister - bladder cancer [OTHER] Brother at 62 - Breast Cancer Paternal Grandmother Social History Substance Use Topics - Smoking status: Never Smoker - Smokeless tobacco: Never Used - Alcohol use Yes Comment: Socially ALLERGIES: ALLERGIES Allergen Reactions - Amoxicillin Rash - Shellfish Vomiting shortness of breath MEDICATIONS desoximetasone (TOPICORT) 0.25 % cream Apply 1 application to affected area twice daily. for up to two weeks, then discontinue predniSONE (DELTASONE) 10 mg tablet Take 40 mg x 3 days, 20 mg x 3 days, 10 mg x 3 days. Take with food, once daily famotidine (PEPCID) 20 mg tablet Take 1 tablet by mouth at bedtime as needed. COMPOUNDED PRESCRIPTION Lab order: TSH, Free T3 and Free T4 Diagnosis: E03.9 levothyroxine (SYNTHROID) 88 mcg tablet Take 1 tablet by mouth daily before breakfast. ALPRAZolam (XANAX) 0.5 mg tablet Take 1 tablet by mouth at bedtime as needed. COMPOUNDED PRESCRIPTION Lab order: TSH, Free T4, Free T3 Diagnosis:E03.9Due mid Jan 2017 estradiol (ESTRACE) 0.01 % (0.1 mg/gram) vaginal cream Use fingertip amount nightly x 2 weeks, then every other night x 2 weeks, then 1-2x weekly for maintenance cholecalciferol (VITAMIN D3) 1,000 unit tab Take 1 tablet by mouth once daily. calcium carbonate 600 mg-cholecalciferol 200 units (CALCIUM 600 + D,3,) 600 mg(1,500mg) -200 unit tab Take 1 tablet by mouth once daily. hydrochlorothiazide 25 mg tablet Take 1 tablet by mouth once daily as needed. for vertigo flare up (Dr. Rubalcava) COMPOUNDED PRESCRIPTION KNEE HIGH COMPRESSION STOCKINGS 20- 30 MM. DX: EDEMA 782.3 (dispense 2 pairs) Naproxen Sodium (ALEVE) 220 mg ORAL tablet Take 1 tablet by mouth twice daily as needed. REVIEW OF SYSTEMS: GENERAL: Negative for: Weight loss or gain, Fever or Chills, Weakness and Sleep difficulties. Physical Examination: BP 120/70 Pulse 76 Resp 16 LMP 12/24/2009 Extended Vitals not filed for this encounter. General appearance: Well appearing, alert, in no acute distress, well-hydrated, well nourished. Skin: Skin color, texture, turgor normal, diffuse confluent erythematous rash over posterior knees bilateral, inner aspect of elbow, scattered raised vesicles over back and chest wall Neuro: Gait normal. . Sensation grossly intact. Reviewed chart, outside records, tests I personally interviewed, confirmed and edited the above information if obtained by others. TESTING: No results found for: GLUC, K, NA, CHLOR, CO2, CREAT, BUN, ANION, CA No results found for: GLUC, K, NA, CHLOR, CO2, CREAT, BUN, ANION, CA, TPROT, ALB, TBILI, ALKPHOS, AST, ALT No results found for: HB, HCT, WBC No results found for: CHOL, HDL, LDL, TG No results found for: HBA1C Ejection Fraction: No results found IMPRESSION: Ms. Hong is a 57 year old woman presents for diffuse rash following weeding. After my examination and review of data, I make the following recommendations. PLAN AND RECOMMENDATIONS: 1. Pruritic erythematous rash - ICD9: 698.8, ICD10: L29.8 Continue with Claritin once daily - DESOXIMETASONE 0.25 % TOPICAL CREAM - apply twice daily for up to 2 weeks - PREDNISONE 10 MG TABLET - taper, take with food - FAMOTIDINE 20 MG TABLET once daily for at least 1 week - CONSULT TO DERMATOLOGY - if not improving in the next few days recommend she see dermatology Advised to go to ER if develops chest pain, shortness of breath, or severe worsening of symptoms. Discussed risks, benefits, alternatives, and potential side effects of medications. Ms. Hong expressed understanding and agreed with the plan. Mary Sanchez APRN.RESOURCE MANAGEMENT PLANNER Referring Provider: SELF [200] Allergies As of Date: 09/13/2017 Noted Allergy Reaction AMOXICILLIN 02/26/2005 2 - Rash SHELLFISH 08/03/2006 11 - Vomiting Comments: shortness of breath Date Reviewed: 09/13/2017 Reviewed by: Cecy Cruz LPN - Fully Assessed Reason for Visit: Rash [1087] Primary Visit Diagnosis:Pruritic erythematous rash [L29.8] Order(s):desoximetasone (TOPICORT) 0.25 % creamApply 1 application to affected area twice daily. for up to two weeks, then discontinueDisp: 30 gRfl: 1 predniSONE (DELTASONE) 10 mg tabletTake 40 mg x 3 days, 20 mg x 3 days, 10 mg x 3 days. Take with food, once dailyDisp: 21 tabletRfl: 0 famotidine (PEPCID) 20 mg tabletTake 1 tablet by mouth at bedtime as needed.Disp: 30 tabletRfl: 0 CONSULT TO DERMATOLOGY [9006] Order #: [id number]: 1 Prescriptions as of 09/13/2017 Sig: DESOXIMETASONE 0.25 % TOPICAL* Apply 1 application to affect* PREDNISONE 10 MG TABLET Take 40 mg x 3 days, 20 mg x * FAMOTIDINE 20 MG TABLET Take 1 tablet by mouth at bed* COMPOUNDED PRESCRIPTION Lab order: TSH, Free T3 and * LEVOTHYROXINE 88 MCG TABLET Take 1 tablet by mouth daily * ALPRAZOLAM 0.5 MG TABLET Take 1 tablet by mouth at bed* COMPOUNDED PRESCRIPTION Lab order: TSH, Free T4, Shane* ESTRADIOL 0.01% (0.1 MG/GRAM)* Use fingertip amount nightly * CHOLECALCIFEROL (VITAMIN D3) * Take 1 tablet by mouth once d* CALCIUM CARBONATE 600 MG (1,5* Take 1 tablet by mouth once d* HYDROCHLOROTHIAZIDE 25 MG TAB* Take 1 tablet by mouth once d* * COMPOUNDED PRESCRIPTION KNEE HIGH COMPRESSION STOCKIN* * NAPROXEN SODIUM 220 MG TABLET Take 1 tablet by mouth twice * Problem List As Of Date 09/13/2017 Noted Resolved Irregular menstrual cycle [N92.6] 02/10/2011 More... FIBROSCLEROSIS OF BREAST [N60.39] Acquired hypothyroidism [E03.9] SCIATICA [M54.30] INVALID FOR* BENIGN PARXYSMAL VERTIGO [H81.10] INVALID FOR* TENSION HEADACHE [G44.209] INVALID FOR* MASS IN BREAST [N63.0] INVALID FOR*02/10/2011 Ocular migraine [G43.809] INVALID FOR* More... CTS (carpal tunnel syndrome) [G56.00] 12/26/2013 More... Neuropathy, ulnar at elbow [G56.20] More... Osteopenia [M85.80] INVALID FOR* Vitamin D deficiency [E55.9] INVALID FOR* Other decreased white blood cell count [D72.818]INVALID FOR* Genital atrophy of female [N94.9] INVALID FOR* Dyspareunia due to medical condition in female *INVALID FOR* Prescriptions ordered this encounter Disp Refills Start End DESOXIMETASONE 0.25 % TOPICAL CREAM 30 g 1 09/13/2017 Route: TOPICAL Sig: Apply 1 application to affected area twice daily. for up to two weeks, then discontinue PREDNISONE 10 MG TABLET 21 t* 0 09/13/2017 Sig: Take 40 mg x 3 days, 20 mg x 3 days, 10 mg x 3 days. Take with food, once daily FAMOTIDINE 20 MG TABLET 30 t* 0 09/13/2017 Route: ORAL Sig: Take 1 tablet by mouth at bedtime as needed. Encounter Status:Closed by MARY DEXTER on 09/13/17 PROGRESS Observed: 09/13/2017 Status: COMPLETED Source: [place] 9:29 AM [facility] [place] REPOSITORY HNO ID: [id number] Author: Mary (Grace) Daniel Service: (none) Author Type: Nurse Specialist Type: Progress Notes Filed: 09/13/2017 11:47 AM Note Text: OUTPATIENT VISIT DATE September 13, 2017 OUTPATIENT VISIT TYPE ESTABLISHED PRIMARY CARE PHYSICIAN: Filiberto Benitez MD CHIEF COMPLAINT: Patient presents with: Rash History of Present Illness: Cecy Hong is a 57 year old female who was last seen March 2017 by primary doctor. 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 She reports treating at home with anti-itch cream with proxyine and Caladryl. She's also been taking Claritin. Benadryl at night. Has gotten some relief. Rash seems to be improving in some areas but spreading to new areas for the last couple of days.. Initially showed up on her arms and near both knees now present on her abdomen and back. No shortness of breath present.No report of new exposures, recent contact with unusual or new material, recent changes in detergents, soap, or shampoo, any recent sore throats or illnesses, travel, new medications, allergies, other family members with the same type of rash, febrile illnesses, using new soaps, wearing new clothes or using new medications. She's had this rash in the past been clearing weeds, however this year seems worse. PAST MEDICAL HISTORY Diagnosis Date - Benign paroxysmal positional vertigo 06/02/2006 - Carpal tunnel syndrome - Cochlear hearing loss Nov 2008 from cochlear hydrops (resolved; treated by Dr. 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 Gaxiola diagnosed - Postmenopausal after 49 years old - Symptomatic menopausal or female climacteric states 2008 - Unspecified hypothyroidism PAST SURGICAL HISTORY Procedure Laterality Date - DELIVERY ONLY x2 , low cervical - COLONOSCOP W/ OR W/O [facility] SPEC 2011 Colonoscopy - HYSTEROSCOPY, DIAGNOSTIC (SEPARATE 10/12/2006 Hysteroscopy - PAST SURGICAL HISTORY OF 05/2007 neuroma removed from left foot Dr. Joyner - PAST SURGICAL HISTORY OF 07/2009 basal cell carcinoma excised from forehead - PAST SURGICAL HISTORY OF 06/29/2013 Left carpal tunnel release. Dr. Rafael De Los Santos - PAST SURGICAL HISTORY OF Right carpal tunnel release FAMILY HISTORY Problem Relation Age of Onset - Diabetes Mother - Hypertension Mother - Thyroid Mother - Prostate Cancer Father - Hypertension Father - skin cancer [OTHER] Father Part of ear removed; also several on arms - Breast Cancer Paternal Aunt - Cancer Maternal Uncle LUNG - Thyroid Sister - Thyroid Sister - bladder cancer [OTHER] Brother at 62 - Breast Cancer Paternal Grandmother Social History Substance Use Topics - Smoking status: Never Smoker - Smokeless tobacco: Never Used - Alcohol use Yes Comment: Socially ALLERGIES: ALLERGIES Allergen Reactions - Amoxicillin Rash - Shellfish Vomiting shortness of breath MEDICATIONS desoximetasone (TOPICORT) 0.25 % cream Apply 1 application to affected area twice daily. for up to two weeks, then discontinue predniSONE (DELTASONE) 10 mg tablet Take 40 mg x 3 days, 20 mg x 3 days, 10 mg x 3 days. Take with food, once daily famotidine (PEPCID) 20 mg tablet Take 1 tablet by mouth at bedtime as needed. COMPOUNDED PRESCRIPTION Lab order: TSH, Free T3 and Free T4 Diagnosis: E03.9 levothyroxine (SYNTHROID) 88 mcg tablet Take 1 tablet by mouth daily before breakfast. ALPRAZolam (XANAX) 0.5 mg tablet Take 1 tablet by mouth at bedtime as needed. COMPOUNDED PRESCRIPTION Lab order: TSH, Free T4, Free T3 Diagnosis:E03.9Due mid Jan 2017 estradiol (ESTRACE) 0.01 % (0.1 mg/gram) vaginal cream Use fingertip amount nightly x 2 weeks, then every other night x 2 weeks, then 1-2x weekly for maintenance cholecalciferol (VITAMIN D3) 1,000 unit tab Take 1 tablet by mouth once daily. calcium carbonate 600 mg-cholecalciferol 200 units (CALCIUM 600 + D,3,) 600 mg(1,500mg) -200 unit tab Take 1 tablet by mouth once daily. hydrochlorothiazide 25 mg tablet Take 1 tablet by mouth once daily as needed. for vertigo flare up (Dr. Rubalcava) COMPOUNDED PRESCRIPTION KNEE HIGH COMPRESSION STOCKINGS 20- 30 MM. DX: EDEMA 782.3 (dispense 2 pairs) Naproxen Sodium (ALEVE) 220 mg ORAL tablet Take 1 tablet by mouth twice daily as needed. REVIEW OF SYSTEMS: GENERAL: Negative for: Weight loss or gain, Fever or Chills, Weakness and Sleep difficulties. Physical Examination: BP 120/70 Pulse 76 Resp 16 LMP 12/24/2009 Extended Vitals not filed for this encounter. General appearance: Well appearing, alert, in no acute distress, well-hydrated, well nourished. Skin: Skin color, texture, turgor normal, diffuse confluent erythematous rash over posterior knees bilateral, inner aspect of elbow, scattered raised vesicles over back and chest wall Neuro: Gait normal. . Sensation grossly intact. Reviewed chart, outside records, tests I personally interviewed, confirmed and edited the above information if obtained by others. TESTING: No results found for: GLUC, K, NA, CHLOR, CO2, CREAT, BUN, ANION, CA No results found for: GLUC, K, NA, CHLOR, CO2, CREAT, BUN, ANION, CA, TPROT, ALB, TBILI, ALKPHOS, AST, ALT No results found for: HB, HCT, WBC No results found for: CHOL, HDL, LDL, TG No results found for: HBA1C Ejection Fraction: No results found IMPRESSION: Ms. Hong is a 57 year old woman presents for diffuse rash following weeding. After my examination and review of data, I make the following recommendations. PLAN AND RECOMMENDATIONS: 1. Pruritic erythematous rash - ICD9: 698.8, ICD10: L29.8 Continue with Claritin once daily - DESOXIMETASONE 0.25 % TOPICAL CREAM - apply twice daily for up to 2 weeks - PREDNISONE 10 MG TABLET - taper, take with food - FAMOTIDINE 20 MG TABLET once daily for at least 1 week - CONSULT TO DERMATOLOGY - if not improving in the next few days recommend she see dermatology Advised to go to ER if develops chest pain, shortness of breath, or severe worsening of symptoms. Discussed risks, benefits, alternatives, and potential side effects of medications. Ms. Hong expressed understanding and agreed with the plan. Mary Sanchez APRN.RESOURCE MANAGEMENT PLANNER SCREENING MAMM (CAD), Observed: 08/05/2017 Status: F Source: [place] BILAT 2:57 PM [facility] REPOSITORY [facility] Imaging Services [address] [facility] [place] [address] SCREENING MAMM (CAD), BILAT MR#: [id number] Acct: [id number] Name: CECY HONG Rep #: [id number] : 1960 F 57 From: Raheel Gomez MD PCP: Filiberto Benitez MD Status: REG CL Study: SCREENING MAMM (CAD), BILAT Date of Exam: 08/05/17 Exam# [id number] Ordering Dr: Filiberto Benitez MD MAMMOGRAPHY - BILATERAL SCREENING REASON FOR EXAM: Female, 57 years old. Routine annual screening examination. PERTINENT HISTORY: Grandmother with breast cancer. Aunt with breast cancer. TECHNIQUE: Digital bilateral breast yisel (3D mammographic acquisition) in the CC and MLO projections. 2-D mediolateral oblique (MLO) and craniocaudad (CC) views of both breasts were obtained. CAD: Full Field Digital Mammography with Computer Added Detection was performed. COMPARISON: Comparison is made with prior study dated June 11, 2016 and June 03, 2015. FINDINGS: Breast Composition: The breasts are heterogeneously dense, which may obscure small masses. There are no dominant masses or suspicious calcifications. Stable appearance of the small bilateral benign appearing axillary lymph nodes. No other significant abnormalities are identified. There has been no significant change since the prior study. BI/SCREENING MAMM (CAD), BILAT IMPRESSION: Stable bilateral screening mammogram. Yearly follow-up mammogram recommended. (A) ASSESSMENT CATEGORY: BIRADS Category 2: Benign. A letter regarding these results will be sent to the patient by the facility within 30 days. Approximately 10% of breast cancers are not detected by mammography. A normal mammogram should not delay biopsy of a clinically suspicious abnormality. [id number] Electronically Signed: Raheel Gomez MD at 8:44 EDT Tel [phone], Service support , CC: Filiberto Benitez MD Vp Of Digital Marketing: Signed ALLERGIES ALLERGIES DATE TYPE / CODE NAME / CODE REACTION SEVERITY SOURCE 09/14/2017 Drug shellfish Other [place] Allergy/416 derived/[id number] [facility] [id number][facility] 01/31/2013 Drug amoxicillin/S08557 Rash Unknown [place] Allergy/416 3675(RXNORM) [facility] [id number]([facility] ED CT) Repository 08/03/2006 Food/878569 SHELLFISH Vomiting [facility] 000(SNOMED [address] [place]) Repository 02/26/2005 DRUG AMOXICILLIN RASH [facility] INGREDI/[address] [place] 865708(SN Repository ED CT) ENCOUNTERS ENCOUNTERS ADMIT/DISCHARGE ACCOUNT ADMITTING ENCOUNTER LOCATION SOURCE NUMBER CLASS 05/10/[id number] [facility] ing:OPBD Repository 04/12/2018 [id number] [facility] ing:LAB Repository 04/11/2018/05/03/19 [id number] Ambulatory [address] Repository 09/14/2017/09/15/19 [id number] Ambulatory BMSBuilding:B Maria [place]isa [address] Repository 09/13/2017/09/15/19 [id number] Ambulatory [address] Repository 08/05/2017 [id number] Ambulatory [place] [facility] ing:OPBI Repository PAYERS PAYERS ENCOUNTER GUARANTOR PAYER SUBSCRIBER SOURCE 05/10/2018 CECY A Primary CECY A [place] [id number] Insurance:MEDICAL SNIDERDOB: [facility] [id number] Number: Repository [id number]: 330 [id number] [phone] () Date:2317-66-65BE [address] [address]OP: 05/10/2018 Secondary NOT GIVENUNK Maria Luisa Insurance:SELF PAY [facility] Number: Effective Repository Date:2018-05-02 04/12/2018 CECY A Primary CECY A [place] [id number] Insurance:MEDICAL SNIDERDOB: [facility] [id number] Number: Repository [id number]: 330 [id number] [phone] () Date:5337-62-70YV [address] [place] [id number]: 04/12/2018 Secondary NOT GIVENUNK [place] Insurance:SELF PAY [facility] Number: Effective Repository Date:2018-04-12 09/14/2017 CECY A Primary CECY A Maria [place]isa [id number] Insurance:MEDICAL SNIDERDOB: [facility] [id number] Number: Repository [id number]: 330 [id number] [phone] () Date:1320-68-82[address] [address]BA: 09/14/2017 Secondary NOT GIVENUNK Maria Luisa Insurance:SELF PAY [facility] Number: Effective Repository Date:2017-09-14 08/05/2017 CECY A Primary CECY A [place] [id number] Insurance:MEDICAL SNIDERDOB: [facility] [id number] Number: Repository [id number]: [phone] [id number] [phone] () Date:3260-25-72[address]X [address], [place] [address]GU: 08/05/2017 Secondary NOT GIVENUNK Maria Luisa Insurance[facility]: Effective Repository Date:2017-07-13
== END ==
PROVIDERS: Family Provider Internal Medicine; PCP Internal Medicine; Referring Provider Internal Medicine; Visit Provider Internal Medicine
DX: Z00.00 Encounter for general adult medical examination without abnormal findings (principal); Z13.1 Encounter for screening for diabetes mellitus; E03.9 Hypothyroidism, unspecified; E55.9 Vitamin D deficiency, unspecified; Z79.899 Other long term (current) drug therapy
CPT/HCPCS: 36415; 80053; 80061; 82306; 84439; 84443; 84481; 85027

== ENCOUNTER → 2018-05-10 10:56 | Outpatient (CLI) | payer OTHER, SELFPAY ==
--- NOTE | 2018-05-10 11:02 | BD_ITS ---
STUDY: DUAL ENERGY X-RAY ABSORPTIOMETRY / DXA REASON FOR EXAM: Female, 57 years old. The patient is postmenopausal. Loss of height. TECHNIQUE: Bone Mineral Density (BMD) measurements of lumbar spine and bilateral hips were obtained. COMPARISON: Comparison is made with prior study dated April 13, 2012. FINDINGS: Lumbar Spine (L1-L4): g/cm2 (0.962) / T-score (-1.8) / Z-score (-0.8) Findings are suggestive of osteopenia with a moderate fracture risk. Left Femur Total: g/cm2 (0.902) / T-score (-0.8) / Z-score (0.0) Left Femoral Neck: g/cm2 (0.950) / T-score (-0.6) / Z-score (0.5) Right Femur Total: g/cm2 (0.954) / T-score (-0.4) / Z-score (0.4) Right Femoral Neck: g/cm2 (0.956) / T-score (-0.6) / Z-score (0.5) The T-Scores on the most recent prior examination were: Lumbar Spine (L1-L4): There has been worsening of bone density since the previous examination. Left Femur Total: which represents a worsening of 5.2%. Right Femur Total: which represents a worsening of 3.7%. BD/Dexa Bone Density Study IMPRESSION: The patient is considered osteopenic as outlined below according to World Werner Organization (WHO) criteria with a moderate fracture risk. There has been worsening of bone density since the previous examination. Reference Information: The T-score is the number of standard deviations above or below the standard which is normal for young adults at their peak bone mineral density. The World Health Organization (WHO) interprets the T-scores as follows: Above -1 Normal bone density Between -1 and -2.5 Osteopenia Equal to / or below -2.5 Osteoporosis As a practical clinical guideline, osteopenia may be graded as follows: Mild -1 through -1.5 Moderate -1.6 through -2.0 Severe -2.1 through -2.4 The Z-score is the number of standard deviations above or below age-matched controls. A Z-score of less than -1.5 would be considered abnormal. References: 1. NIH Osteoporosis and Related Bone Diseases http://www.osteo.org 2. International Society for Clinical Densitometry http://www.iscd.org 3. National Osteoporosis Foundation http://www.nof.org Electronically Signed: Raheel Gomez MD at 10:56 EST Tel [phone], Service support ,
== END ==
PROVIDERS: Family Provider Internal Medicine; PCP Internal Medicine; Referring Provider Internal Medicine; Visit Provider Internal Medicine
DX: M85.80 Other specified disorders of bone density and structure, unspecified site (principal)
CPT/HCPCS: 77080

== ENCOUNTER → 2018-08-08 11:43 | Outpatient (CLI) | payer OTHER, SELFPAY ==
--- NOTE | 2018-08-08 11:47 | BI_ITS ---
MAMMOGRAPHY - BILATERAL SCREENING REASON FOR EXAM: Female, 58 years old. Routine annual screening examination. PERTINENT HISTORY: Grandmother with breast cancer. Aunt with breast cancer. TECHNIQUE: Digital bilateral breast galo (3D mammographic acquisition) in the CC and MLO projections. 2-D mediolateral oblique (MLO) and craniocaudad (CC) views of both breasts were obtained. CAD: Full Field Digital Mammography with Computer Added Detection was performed. COMPARISON: Comparison is made with prior study dated August 05, 2017 and June 11, 2016. FINDINGS: Breast Composition: The breasts are heterogeneously dense, which may obscure small masses. There are no dominant masses or suspicious calcifications. No other significant abnormalities are identified. There has been no significant change since the prior study. BI/SCREENING MAMM (CAD), BILAT IMPRESSION: Stable bilateral screening mammogram. Yearly follow-up mammogram recommended. (A) ASSESSMENT CATEGORY: BIRADS Category 1: Negative. A letter regarding these results will be sent to the patient by the facility within 30 days. Approximately 10% of breast cancers are not detected by mammography. A normal mammogram should not delay biopsy of a clinically suspicious abnormality. [id number] Electronically Signed: Raheel Gomez, at 12:55 EDT , Service support ,
== END ==
PROVIDERS: Family Provider Internal Medicine; PCP Internal Medicine; Referring Provider Internal Medicine; Visit Provider Internal Medicine
DX: Z12.31 Encounter for screening mammogram for malignant neoplasm of breast (principal)
CPT/HCPCS: 77063; 77067

== ENCOUNTER → 2018-12-06 | Outpatient (CLI) | payer OTHER, SELFPAY ==
[2018-12-06 11:09] VITALS: BMI 23.6
[2018-12-12 11:44] LABS: HPV APTIMA, High Risk Negative (Negative)
== END | disposition home or self-care (01) ==
LOC: LABSPEC 13:51
PROVIDERS: Family Provider Internal Medicine; PCP Internal Medicine; Referring Provider Obstetrics & Gynecology; Visit Provider Obstetrics & Gynecology
DX: Z12.4 Encounter for screening for malignant neoplasm of cervix (principal)
CPT/HCPCS: 87624; 88175; G0145

== ENCOUNTER → 2019-04-13 09:54 | Outpatient (CLI) | payer OTHER, SELFPAY ==
[2018-12-06 11:09] VITALS: BMI 23.6
[2019-04-13 11:29] LABS: Hemoglobin 14.2 g/dL (12.0-15.0); Mean Corpuscular Hgb 29.5 pg (27.0-32.0); Mean Corpuscular Volume 89.2 fL (81-99); Mean Platelet Vol. 11.3 fl (6.2-12.0); Platelet Count 241 K/mm3 (150-450); RBC Distribution Width CV 12.6 % (11.6-14.6); RBC Distribution Width SD 41.8 fl (35.1-43.9); Red Blood Count 4.82 M/mm3 (4.2-5.4); White Blood Count 6.3 K/mm3 (4.4-11.0)
[2019-04-13 12:51] LABS: ALB/GLOB Ratio 1.2 RATIO (0.9-2.4); AST(SGOT) 18 U/L (15-37); Alanine Aminotransfer ALT/SGPT 18 U/L (13-56); Albumin, Serum 4.2 g/dL (3.2-5.0); Alkaline Phosphatase 74 U/L (45-117); Anion Gap 4 (5-15); BUN 14 mg/dL (7-18); BUN/Creat Ratio 18.9 RATIO (10-20); Calcium,Total 8.8 mg/dL (8.5-10.1); Chloride 105 mmol/L (98-107); Cholesterol 248 mg/dL (200); Creatinine, Serum 0.74 mg/dL (0.55-1.02); EST Glomerular Filtration Rate 85 mL/min (>60); Est Glom Filt Rate - Afr Amer 103 mL/min (>60); Free T3 2.8 pg/mL (2.18-3.98); Globulin 3.4 g/dL (2.2-4.2); Glucose 87 mg/dL (74-106); High Density Lipoprotein 77 mg/dL; Protein, Total 7.6 g/dL (6.4-8.2); Sodium Level 138 mmol/L (136-145); T4 Free Direct 1.18 ng/dL (0.76-1.46); Thyroid Stim Hormone (TSH) 1.48 uIU/mL (0.358-3.74); Triglycerides 127 mg/dL; Very Low Density Lipoprotein 25 mg/dL (5-40)
== END ==
PROVIDERS: Family Provider Internal Medicine; PCP Internal Medicine; Referring Provider Internal Medicine; Visit Provider Internal Medicine
DX: R74.0 Nonspecific elevation of levels of transaminase and lactic acid dehydrogenase [LDH] (principal); E55.9 Vitamin D deficiency, unspecified; E03.9 Hypothyroidism, unspecified; Z79.899 Other long term (current) drug therapy
CPT/HCPCS: 36415; 80053; 80061; 82306; 84439; 84443; 84481; 85027

== ENCOUNTER → 2019-09-04 13:55 | Outpatient (CLI) | payer OTHER, SELFPAY ==
[2018-12-06 11:09] VITALS: BMI 23.6
--- NOTE | 2019-09-04 13:56 | BI_ITS ---
MAMMOGRAPHY - BILATERAL SCREENING REASON FOR EXAM: Female, 59 years old. Routine annual screening examination. PERTINENT HISTORY: Grandmother with breast cancer. Aunt with breast cancer. TECHNIQUE: Digital bilateral breast yisel (3D mammographic acquisition) in the CC and MLO projections. 2-D mediolateral oblique (MLO) and craniocaudad (CC) views of both breasts were obtained. CAD: Full Field Digital Mammography with Computer Added Detection was performed. COMPARISON: Comparison is made with prior examination dated August 08, 2018 and August 05, 2017. FINDINGS: Breast Composition: The breasts are heterogeneously dense, which may obscure small masses. There are no dominant masses or suspicious calcifications. Stable benign-appearing bilateral axillary lymph nodes. No other significant abnormalities are identified. There has been no significant change since the prior study. BI/SCREEN MAMM (CAD) W/YISEL BILAT IMPRESSION: Stable bilateral screening mammogram. Yearly follow-up mammogram recommended. (A) ASSESSMENT CATEGORY: BIRADS Category 2: Benign. A letter regarding these results will be sent to the patient by the facility within 30 days. Approximately 10% of breast cancers are not detected by mammography. A normal mammogram should not delay biopsy of a clinically suspicious abnormality. [id number] Electronically Signed: Raheel Gomez, at 14:57 EDT , Service support ,
== END ==
PROVIDERS: PCP Internal Medicine; Referring Provider Obstetrics & Gynecology; Visit Provider Obstetrics & Gynecology
DX: Z12.31 Encounter for screening mammogram for malignant neoplasm of breast (principal); Z80.3 Family history of malignant neoplasm of breast
CPT/HCPCS: 77063; 77067

== ENCOUNTER → 2020-04-08 09:59 | Outpatient (CLI) | payer OTHER, SELFPAY ==
[2020-04-04 13:48] VITALS: BMI 24.4
[2020-04-08 11:37] LABS: Hematocrit 42.1 % (37-47); Hemoglobin 13.6 g/dL (12.0-15.0); Mean Corp Hgb Conc 32.3 g/dL (32-36); Mean Corpuscular Hgb 28.9 pg (27.0-32.0); Mean Corpuscular Volume 89.4 fL (81-99); Mean Platelet Vol. 11.4 fl (6.2-12.0); Platelet Count 259 K/mm3 (150-450); RBC Distribution Width CV 12.5 % (11.6-14.6); RBC Distribution Width SD 41.2 fl (35.1-43.9); Red Blood Count 4.71 M/mm3 (4.2-5.4); White Blood Count 4.4 K/mm3 (4.4-11.0)
[2020-04-08 12:02] LABS: Vitamin D,25 Hydroxy 48.3 ng/mL
[2020-04-08 12:18] LABS: ALB/GLOB Ratio 1.2 RATIO (0.9-2.4); AST(SGOT) 17 U/L (15-37); Alanine Aminotransfer ALT/SGPT 18 U/L (13-56); Alkaline Phosphatase 73 U/L (45-117); Anion Gap 2 (5-15); BUN 9 mg/dL (7-18); BUN/Creat Ratio 13.5 RATIO (10-20); Calcium,Total 8.5 mg/dL (8.5-10.1); Chloride 107 mmol/L (98-107); Cholesterol 241 mg/dL (200); Creatinine, Serum 0.66 mg/dL (0.55-1.02); EST Glomerular Filtration Rate 96 mL/min (>60); Est Glom Filt Rate - Afr Amer 117 mL/min (>60); Free T3 2.4 pg/mL (2.18-3.98); Globulin 3.3 g/dL (2.2-4.2); Glucose 88 mg/dL (74-106); High Density Lipoprotein 67 mg/dL; Protein, Total 7.3 g/dL (6.4-8.2); Sodium Level 139 mmol/L (136-145); T4 Free Direct 1.16 ng/dL (0.76-1.46); Triglycerides 199 mg/dL; Very Low Density Lipoprotein 40 mg/dL (5-40)
== END ==
PROVIDERS: PCP Internal Medicine; Visit Provider Internal Medicine
DX: R74.02 Elevation of levels of lactic acid dehydrogenase [LDH] (principal); E03.9 Hypothyroidism, unspecified; E55.9 Vitamin D deficiency, unspecified; Z79.899 Other long term (current) drug therapy
CPT/HCPCS: 36415; 80053; 80061; 82306; 84439; 84443; 84481; 85027

== ENCOUNTER 2020-07-31 08:41 | Outpatient (RCR) | payer OTHER, SELFPAY ==
[2020-04-04 13:48] VITALS: BMI 24.4
== END 2020-10-01 23:59 ==
LOC: IMMUN 08:41
PROVIDERS: PCP Internal Medicine; Visit Provider Family Medicine
DX: Z23 Encounter for immunization (principal)
CPT/HCPCS: 0001A; 0002A; 91300

== ENCOUNTER → 2021-01-17 11:53 | Outpatient (CLI) | payer OTHER, SELFPAY ==
--- NOTE | 2021-01-17 11:57 | BI_ITS ---
MAMMOGRAPHY - BILATERAL SCREENING REASON FOR EXAM: Female, 60 years old. Routine annual screening examination. PERTINENT HISTORY: Grandmother with breast cancer. Aunt with breast cancer. TECHNIQUE: Digital bilateral breast yisel (3D mammographic acquisition) in the CC and MLO projections. 2-D mediolateral oblique (MLO) and craniocaudad (CC) views of both breasts were obtained. CAD: Full Field Digital Mammography with Computer Added Detection was performed. COMPARISON: Comparison is made with prior examination of 09/04/2019 and 08/08/2018. FINDINGS: Breast Composition: The breasts are heterogeneously dense, which may obscure small masses. There are no dominant masses or suspicious calcifications. Stable small benign-appearing bilateral axillary lymph nodes. No other significant abnormalities are identified. There has been no significant change since the prior study. BI/SCRN MAMM (CAD)W/YISEL BILAT IMPRESSION: Stable bilateral screening mammogram. Yearly follow-up mammogram recommended. (A) ASSESSMENT CATEGORY: BIRADS Category 2: Benign. A letter regarding these results will be sent to the patient by the facility within 30 days. Approximately 10% of breast cancers are not detected by mammography. A normal mammogram should not delay biopsy of a clinically suspicious abnormality. [id number] Electronically Signed: Raheel Gomez MD at 12:36 EDT , Service support ,
== END ==
PROVIDERS: PCP Internal Medicine; Referring Provider Obstetrics & Gynecology; Visit Provider Obstetrics & Gynecology
DX: Z12.31 Encounter for screening mammogram for malignant neoplasm of breast (principal); Z80.3 Family history of malignant neoplasm of breast
CPT/HCPCS: 77063; 77067

== ENCOUNTER → 2021-04-08 10:29 | Outpatient (CLI) | payer OTHER, SELFPAY ==
[2021-04-08 11:07] LABS: Hemoglobin 13.6 g/dL (12.0-15.0); Mean Corp Hgb Conc 33.2 g/dL (32-36); Mean Corpuscular Hgb 29.4 pg (27.0-32.0); Mean Corpuscular Volume 88.6 fL (81-99); Mean Platelet Vol. 10.9 fl (6.2-12.0); Platelet Count 270 K/mm3 (150-450); RBC Distribution Width CV 12.9 % (11.6-14.6); RBC Distribution Width SD 41.9 fl (35.1-43.9); Red Blood Count 4.63 M/mm3 (4.2-5.4)
[2021-04-08 11:39] LABS: ALB/GLOB Ratio 1.1 RATIO (0.9-2.4); AST(SGOT) 15 U/L (15-37); Alanine Aminotransfer ALT/SGPT 20 U/L (13-56); Albumin, Serum 3.8 g/dL (3.2-5.0); Alkaline Phosphatase 73 U/L (45-117); Anion Gap 8 (5-15); BUN 15 mg/dL (7-18); BUN/Creat Ratio 20.8 RATIO (10-20); Calcium,Total 8.5 mg/dL (8.5-10.1); Chloride 103 mmol/L (98-107); Cholesterol 270 mg/dL (200); Creatinine, Serum 0.72 mg/dL (0.55-1.02); EST Glomerular Filtration Rate 87 mL/min (>60); Est Glom Filt Rate - Afr Amer 106 mL/min (>60); Free T3 2.5 pg/mL (2.18-3.98); Globulin 3.4 g/dL (2.2-4.2); Glucose 94 mg/dL (74-106); High Density Lipoprotein 75 mg/dL; Potassium 4.1 mmol/L (3.5-5.1); Protein, Total 7.2 g/dL (6.4-8.2); Sodium Level 139 mmol/L (136-145); T4 Free Direct 1.12 ng/dL (0.76-1.46); Thyroid Stim Hormone (TSH) 1.58 uIU/mL (0.358-3.74); Triglycerides 113 mg/dL; Very Low Density Lipoprotein 23 mg/dL (5-40)
== END ==
PROVIDERS: PCP Internal Medicine; Referring Provider Internal Medicine; Visit Provider Internal Medicine
DX: E78.2 Mixed hyperlipidemia (principal); E03.9 Hypothyroidism, unspecified; Z79.899 Other long term (current) drug therapy
CPT/HCPCS: 36415; 80053; 80061; 84439; 84443; 84481; 85027

== ENCOUNTER 2021-08-01 08:29 | Outpatient (CLI) | payer OTHER, SELFPAY ==
[2021-08-01 10:14] LABS: Cholesterol 221 mg/dL (200); High Density Lipoprotein 74 mg/dL; Triglycerides 94 mg/dL; Very Low Density Lipoprotein 19 mg/dL (5-40)
== END 2021-08-01 23:59 | disposition home or self-care (01) ==
LOC: LAB 08:30
PROVIDERS: PCP Internal Medicine; Referring Provider Internal Medicine; Visit Provider Internal Medicine
DX: E78.5 Hyperlipidemia, unspecified (principal)
CPT/HCPCS: 36415; 80061

== ENCOUNTER → 2021-09-02 | Outpatient (CLI) | payer OTHER, SELFPAY ==
--- NOTE | 2021-09-02 09:26 | BD_ITS ---
STUDY: DUAL ENERGY X-RAY ABSORPTIOMETRY / DXA REASON FOR EXAM: Female, 61 years old. Post menopausal TECHNIQUE: Bone Mineral Density (BMD) measurements of lumbar spine and bilateral hips were obtained. COMPARISON: Comparison is made with prior study dated 05/10/2018. FINDINGS: Lumbar Spine (L1-L4): g/cm2 (0.859) / T-score (-1.7) / Z-score (0.2) Findings are suggestive of osteopenia with a moderate fracture risk. Left Femur Total: g/cm2 (0.804) / T-score (-1.1) / Z-score (-0.1) Left Femoral Neck: g/cm2 (0.727) / T-score (-1.1) / Z-score (0.2) Right Femur Total: g/cm2 (0.881) / T-score (-0.5) / Z-score (0.5) Right Femoral Neck: g/cm2 (0.732) / T-score (-1.1) / Z-score (0.3) The T-Scores on the most recent prior examination were: Lumbar Spine (L1-L4): There has been improvement of bone density since the previous examination. Left Femur Total: which represents a worsening of 4.1%. Right Femur Total: which represents a worsening of 0.9%. BD/Dexa Bone Density Study IMPRESSION: The patient is considered osteopenic as outlined below according to World Werner Organization (WHO) criteria with a moderate fracture risk. There has been worsening of bone density since the previous examination. Reference Information: The T-score is the number of standard deviations above or below the standard which is normal for young adults at their peak bone mineral density. The World Health Organization (WHO) interprets the T-scores as follows: Above -1 Normal bone density Between -1 and -2.5 Osteopenia Equal to / or below -2.5 Osteoporosis As a practical clinical guideline, osteopenia may be graded as follows: Mild -1 through -1.5 Moderate -1.6 through -2.0 Severe -2.1 through -2.4 The Z-score is the number of standard deviations above or below age-matched controls. A Z-score of less than -1.5 would be considered abnormal. References: 1. NIH Osteoporosis and Related Bone Diseases www osteo.org 2. International Society for Clinical Densitometry www iscd.org 3. National Osteoporosis Foundation www nof.org Electronically Signed: Raheel Gomez MD at 9:38 EDT ,
== END | disposition home or self-care (01) ==
LOC: OPBD 09:21
PROVIDERS: PCP Internal Medicine; Referring Provider Internal Medicine; Visit Provider Internal Medicine
DX: Z78.0 Asymptomatic menopausal state (principal); M85.80 Other specified disorders of bone density and structure, unspecified site
CPT/HCPCS: 77080

== ENCOUNTER → 2022-01-27 | Outpatient (CLI) | payer OTHER, SELFPAY ==
--- NOTE | 2022-01-27 12:37 | BI_ITS ---
MAMMOGRAPHY - BILATERAL SCREENING REASON FOR EXAM: Female, 61 years old. Routine annual screening examination. PERTINENT HISTORY: Grandmother with breast cancer. Aunt with breast cancer. TECHNIQUE: Digital bilateral breast yisel (3D mammographic acquisition) in the CC and MLO projections. 2-D mediolateral oblique (MLO) and craniocaudad (CC) views of both breasts were obtained. CAD: Full Field Digital Mammography with Computer Added Detection was performed. COMPARISON: Comparison is made with prior study 01/17/2021 and 09/04/2019. FINDINGS: Breast Composition: The breasts are heterogeneously dense, which may obscure small masses. There are no dominant masses or suspicious calcifications. Stable small benign-appearing bilateral axillary lymph nodes. No other significant abnormalities are identified. There has been no significant change since the prior study. BI/SCRN MAMM (CAD)W/YISEL BILAT IMPRESSION: Stable bilateral screening mammogram. Yearly follow-up mammogram recommended. (A) ASSESSMENT CATEGORY: BIRADS Category 2: Benign. A letter regarding these results will be sent to the patient by the facility within 30 days. Approximately 10% of breast cancers are not detected by mammography. A normal mammogram should not delay biopsy of a clinically suspicious abnormality. [id number] Electronically Signed: Raheel Gomez MD at 13:34 EDT ,
== END | disposition home or self-care (01) ==
LOC: OPBI 12:36
PROVIDERS: PCP Internal Medicine; Visit Provider Nurse Practitioner Women's Health
DX: Z12.31 Encounter for screening mammogram for malignant neoplasm of breast (principal); Z80.3 Family history of malignant neoplasm of breast
CPT/HCPCS: 77063; 77067

== ENCOUNTER → 2022-03-31 | Outpatient (CLI) | payer OTHER, SELFPAY ==
[2022-03-31 09:14] LABS: Absolute Lymphocyte Count 1.63 X10^3/uL (0.83-4.51); Basophil# 0.05 X10^3/uL; Basophil% 1.2 % (0-1); Eosinophils% 2.4 % (0-5); Hematocrit 40.9 % (37-47); Hemoglobin 13.7 g/dL (12.0-15.0); Lymphocyte # 1.63 X10^3/ul (0.83-4.51); Lymphocyte % 38.9 % (19-41); Mean Corp Hgb Conc 33.5 g/dL (32-36); Mean Corpuscular Hgb 29.8 pg (27.0-32.0); Mean Corpuscular Volume 88.9 fL (81-99); Mean Platelet Vol. 11.2 fl (6.2-12.0); Monocyte# 0.41 X10^3/uL; Monocyte% 9.8 % (0-10); NRBC Flagged by Analyzer 0 % (0-5); Neutrophil # 1.97 X10^3/uL (2.7-7.7); Platelet Count 237 K/mm3 (150-450); RBC Distribution Width CV 13.1 % (11.6-14.6); RBC Distribution Width SD 42.7 fl (35.1-43.9); White Blood Count 4.2 K/mm3 (4.4-11.0)
[2022-03-31 09:31] LABS: Vitamin D,25 Hydroxy 47.3 ng/mL
[2022-03-31 09:38] LABS: ALB/GLOB Ratio 1.3 RATIO (0.9-2.4); AST(SGOT) 14 U/L (15-37); Alanine Aminotransfer ALT/SGPT 15 U/L (13-56); Alkaline Phosphatase 65 U/L (45-117); Anion Gap 2 (5-15); BUN 14 mg/dL (7-18); BUN/Creat Ratio 22.7 RATIO (10-20); Calcium,Total 8.7 mg/dL (8.5-10.1); Chloride 105 mmol/L (98-107); Cholesterol 222 mg/dL (200); Creatinine, Serum 0.62 mg/dL (0.55-1.02); EST Glomerular Filtration Rate 104 mL/min (>60); Est Glom Filt Rate - Afr Amer 126 mL/min (>60); Globulin 3.1 g/dL (2.2-4.2); Glucose 100 mg/dL (74-106); High Density Lipoprotein 73 mg/dL; Protein, Total 7.1 g/dL (6.4-8.2); Sodium Level 137 mmol/L (136-145); Thyroid Stim Hormone (TSH) 1.36 uIU/mL (0.358-3.74); Triglycerides 91 mg/dL; Very Low Density Lipoprotein 18 mg/dL (5-40)
== END | disposition home or self-care (01) ==
LOC: LAB 08:54
PROVIDERS: PCP Internal Medicine; Referring Provider Internal Medicine; Visit Provider Internal Medicine
DX: E78.5 Hyperlipidemia, unspecified (principal); E03.9 Hypothyroidism, unspecified; M85.80 Other specified disorders of bone density and structure, unspecified site
CPT/HCPCS: 36415; 80053; 80061; 82306; 84443; 85025

== ENCOUNTER → 2023-01-28 | Outpatient (CLI) | payer OTHER, SELFPAY ==
--- NOTE | 2023-01-28 10:29 | BI_ITS ---
MAMMOGRAPHY - BILATERAL SCREENING REASON FOR EXAM: Female, 62 years old. Routine annual screening examination. PERTINENT HISTORY: Grandmother with breast cancer. Aunt with breast cancer. TECHNIQUE: Digital bilateral breast yisel (3D mammographic acquisition) in the CC and MLO projections. 2-D mediolateral oblique (MLO) and craniocaudad (CC) views of both breasts were obtained. CAD: Full Field Digital Mammography with Computer Added Detection was performed. COMPARISON: Comparison is made with prior study January 27, 2022 and January 17, 2021. FINDINGS: Breast Composition: The breasts are heterogeneously dense, which may obscure small masses. There are no dominant masses or suspicious calcifications. Stable benign-appearing bilateral axillary lymph nodes. No other significant abnormalities are identified. There has been no significant change since the prior study. BI/SCRN MAMM (CAD)W/YISEL BILAT IMPRESSION: Stable bilateral screening mammogram. Yearly follow-up mammogram recommended. (A) ASSESSMENT CATEGORY: BIRADS Category 2: Benign. A letter regarding these results will be sent to the patient by the facility within 30 days. Approximately 10% of breast cancers are not detected by mammography. A normal mammogram should not delay biopsy of a clinically suspicious abnormality. [id number] Electronically Signed: Raheel Gomez MD at 12:08 EDT ,
== END | disposition home or self-care (01) ==
LOC: OPBI 10:28
PROVIDERS: PCP Internal Medicine; Referring Provider Obstetrics & Gynecology; Visit Provider Obstetrics & Gynecology
DX: Z12.31 Encounter for screening mammogram for malignant neoplasm of breast (principal)
CPT/HCPCS: 77063; 77067

== ENCOUNTER → 2023-03-03 | Outpatient (CLI) | payer OTHER, SELFPAY ==
[2023-03-03 12:21] LABS: Absolute Lymphocyte Count 1.32 X10^3/uL (0.83-4.51); Absolute Neutrophil Count 2.3 X10^3/uL (2.0-7.7); Basophil# 0.06 X10^3/uL; Basophil% 1.4 % (0-1); Eosinophil# 0.08 X10^3/uL; Eosinophils% 1.9 % (0-5); Hematocrit 41.8 % (37-47); Hemoglobin 13.4 g/dL (12.0-15.0); Lymphocyte # 1.32 X10^3/ul (0.83-4.51); Lymphocyte % 31.7 % (19-41); Mean Corp Hgb Conc 32.1 g/dL (32-36); Mean Corpuscular Hgb 29.2 pg (27.0-32.0); Mean Corpuscular Volume 91.1 fL (81-99); Mean Platelet Vol. 11.6 fl (6.2-12.0); Monocyte# 0.37 X10^3/uL; Monocyte% 8.9 % (0-10); NRBC Flagged by Analyzer 0 % (0-5); Neutrophil # 2.32 X10^3/uL (2.7-7.7); Neutrophil % 55.6 % (47-70); Platelet Count 239 K/mm3 (150-450); RBC Distribution Width SD 43.7 fl (35.1-43.9); Red Blood Count 4.59 M/mm3 (4.2-5.4); White Blood Count 4.2 K/mm3 (4.4-11.0)
[2023-03-03 12:52] LABS: ALB/GLOB Ratio 1.2 RATIO (0.9-2.4); AST(SGOT) 15 U/L (15-37); Alanine Aminotransfer ALT/SGPT 17 U/L (13-56); Albumin, Serum 3.9 g/dL (3.2-5.0); Alkaline Phosphatase 72 U/L (45-117); Anion Gap 3 (5-15); BUN 13 mg/dL (7-18); BUN/Creat Ratio 20.4 RATIO (10-20); Calcium,Total 8.7 mg/dL (8.5-10.1); Chloride 103 mmol/L (98-107); Cholesterol 244 mg/dL (200); Creatinine, Serum 0.64 mg/dL (0.55-1.02); EST Glomerular Filtration Rate 100 mL/min (>60); Est Glom Filt Rate - Afr Amer 121 mL/min (>60); Globulin 3.2 g/dL (2.2-4.2); Glucose 97 mg/dL (74-106); High Density Lipoprotein 76 mg/dL; Potassium 4.1 mmol/L (3.5-5.1); Protein, Total 7.1 g/dL (6.4-8.2); Sodium Level 135 mmol/L (136-145); Thyroid Stim Hormone (TSH) 1.93 uIU/mL (0.358-3.74); Triglycerides 82 mg/dL; Very Low Density Lipoprotein 16 mg/dL (5-40)
== END | disposition home or self-care (01) ==
LOC: BIMLAB 10:41
PROVIDERS: PCP Internal Medicine; Referring Provider Internal Medicine; Visit Provider Internal Medicine
DX: E03.9 Hypothyroidism, unspecified (principal); E78.5 Hyperlipidemia, unspecified
CPT/HCPCS: 36415; 80053; 80061; 84443; 85025

== ENCOUNTER → 2023-03-31 | Outpatient (CLI) | payer OTHER, SELFPAY ==
--- NOTE | 2023-03-31 13:02 | ECHOD_ITS ---
Reason For Study: Family Hx of Bicuspid AV Procedure This was a 2D Doppler, Color Flow transthoracic echocardiogram. Exam performed in department. Left Ventricle Normal size and thickness. The left ventricular ejection fraction is 65 %. Normal diastology for age. Right Ventricle Normal right ventricle. Atria The left and right atria are normal. Bubble contrast study is negative for PFO/ASD. Mitral Valve Mild (1+) eccentric mitral valve insufficiency. Tricuspid Valve Trivial tricuspid valve insufficiency. Normal pulmonary artery pressure. Aortic Valve Trisinus/trileaflet aortic valve. Mild (1+) aortic valve insufficiency. Pulmonic Valve The pulmonic valve is not well visualized. Mild (1+) pulmonic valve insufficiency. Great Vessels Normal sized aortic root. Pericardium/Pleural No pericardial effusion. Medication Performed a rapid injection of agitated mix of 9 cc saline and 1cc air to assess for atrial septal defect. MMode/2D Measurements & Calculations LVIDd: 4.5 cm IVSd: 0.69 cm Ao root diam: 3.0 cm LVIDs: 2.4 cm LVPWd: 0.68 cm RVDd: 3.2 cm FS: 46.2 % LAV(MOD-bp): 22.9 ml LVAd ap4: 20.4 cm2 SV(MOD-sp4): 32.6 ml LAV(MOD-bp) Indexed: 13.5 ml/m2 LVLd ap4: 7.0 cm LAV(MOD-sp2): 19.8 ml EDV(MOD-sp4): 49.7 ml LAV(MOD-sp4): 23.1 ml EDV(sp4-el): 50.5 ml LVAs ap4: 10.4 cm2 LVLs ap4: 5.4 cm ESV(MOD-sp4): 17.1 ml ESV(sp4-el): 17.0 ml EF(MOD-sp4): 65.6 % EF(sp4-el): 66.4 % SV(sp4-el): 33.6 ml LA A4 area: 11.6 cm2 LA dimension(2D): 2.9 cm RA A4 area: 6.8 cm2 TAPSE: 2.6 cm Time Measurements MV dec time: 0.24 sec Doppler Measurements & Calculations MV E max jose j: 62.3 cm/sec Lat Peak E' Jose J: 8.6 cm/sec Med Peak E' Jose J: 5.2 cm/sec MV A max jose j: 68.0 cm/sec E/E' lat: 7.2 E/E' med: 11.9 MV E/A: 0.92 MV dec slope: 258.6 cm/sec2 Ao V2 max: 149.2 cm/sec LV V1 max: 128.2 cm/sec Ao max P.9 mmHg LV V1 max P.6 mmHg Ao V2 mean: 99.1 cm/sec LV V1 mean P.5 mmHg Ao mean P.6 mmHg LV V1 mean: 88.0 cm/sec Ao V2 VTI: 29.5 cm LV V1 VTI: 23.4 cm AV (velocity ratio): 0.79 PA V2 max: 112.7 cm/sec TR max jose j: 215.8 cm/sec TR max P.6 mmHg ECHO/Echo Complete Interpretation Summary The left ventricular ejection fraction is 65 %. Mild (1+) eccentric mitral valve insufficiency. Trisinus/trileaflet aortic valve. Mild (1+) aortic valve insufficiency. Mild (1+) pulmonic valve insufficiency. Bubble contrast study is negative for PFO/ASD. Ordering Physician: Juanita Anderson Referring Physician: Juanita Anderson Performed By: Mikala Carlos, AYAN, RVT
== END | disposition home or self-care (01) ==
LOC: CVS 13:02
PROVIDERS: PCP Internal Medicine; Referring Provider Internal Medicine; Visit Provider Internal Medicine
DX: I08.3 Combined rheumatic disorders of mitral, aortic and tricuspid valves (principal); Z82.79 Family history of other congenital malformations, deformations and chromosomal abnormalities
CPT/HCPCS: 93306; A4216

== ENCOUNTER → 2023-08-16 | Outpatient (CLI) | payer OTHER, SELFPAY ==
[2023-08-19 14:10] LABS: HPV APTIMA, High Risk Negative (Negative)
== END | disposition home or self-care (01) ==
LOC: LABSPEC 16:36
PROVIDERS: PCP Internal Medicine; Referring Provider Obstetrics & Gynecology; Visit Provider Obstetrics & Gynecology
DX: Z12.4 Encounter for screening for malignant neoplasm of cervix (principal)
CPT/HCPCS: 87624; 88175; G0145

== ENCOUNTER → 2023-08-18 | Outpatient (CLI) | payer OTHER, SELFPAY | END | disposition home or self-care (01) | LOC: PAVLAB 11:42 | PROVIDERS: PCP Internal Medicine; Visit Provider Obstetrics & Gynecology | DX: R92.2 Inconclusive mammogram (principal); Z80.3 Family history of malignant neoplasm of breast; Z80.41 Family history of malignant neoplasm of ovary ==

== ENCOUNTER → 2023-10-11 | Outpatient (CLI) | payer OTHER, SELFPAY ==
[2023-10-11 12:12] LABS: Absolute Lymphocyte Count 1.31 X10^3/uL (0.83-4.51); Absolute Neutrophil Count 2.1 X10^3/uL (2.0-7.7); Basophil# 0.04 X10^3/uL; Eosinophil# 0.11 X10^3/uL; Eosinophils% 2.8 % (0-5); Hematocrit 41.5 % (37-47); Hemoglobin 13.3 g/dL (12.0-15.0); Lymphocyte # 1.31 X10^3/ul (0.83-4.51); Mean Corpuscular Hgb 29.2 pg (27.0-32.0); Mean Platelet Vol. 11.5 fl (6.2-12.0); Monocyte% 10.1 % (0-10); NRBC Flagged by Analyzer 0 % (0-5); Neutrophil # 2.08 X10^3/uL (2.7-7.7); Neutrophil % 52.3 % (47-70); Platelet Count 243 K/mm3 (150-450); RBC Distribution Width CV 12.9 % (11.6-14.6); RBC Distribution Width SD 42.5 fl (35.1-43.9); Red Blood Count 4.56 M/mm3 (4.2-5.4)
[2023-10-11 13:08] LABS: ALB/GLOB Ratio 1.1 RATIO (0.9-2.4); AST(SGOT) 22 U/L (15-37); Alanine Aminotransfer ALT/SGPT 20 U/L (13-56); Albumin, Serum 3.9 g/dL (3.2-5.0); Alkaline Phosphatase 76 U/L (45-117); Anion Gap 6 (5-15); BUN 11 mg/dL (7-18); BUN/Creat Ratio 17.9 RATIO (10-20); Calcium,Total 8.9 mg/dL (8.5-10.1); Chloride 103 mmol/L (98-107); Cholesterol 226 mg/dL (200); Creatinine, Serum 0.62 mg/dL (0.55-1.02); EST Glomerular Filtration Rate 104 mL/min (>60); Est Glom Filt Rate - Afr Amer 126 mL/min (>60); Globulin 3.5 g/dL (2.2-4.2); Glucose 102 mg/dL (74-106); High Density Lipoprotein 69 mg/dL; Protein, Total 7.4 g/dL (6.4-8.2); Sodium Level 136 mmol/L (136-145); Thyroid Stim Hormone (TSH) 2.12 uIU/mL (0.358-3.74); Triglycerides 99 mg/dL; Very Low Density Lipoprotein 20 mg/dL (5-40)
== END | disposition home or self-care (01) ==
LOC: BIMLAB 11:14
PROVIDERS: PCP Internal Medicine; Visit Provider Internal Medicine
DX: E78.2 Mixed hyperlipidemia (principal); E03.9 Hypothyroidism, unspecified
CPT/HCPCS: 36415; 80053; 80061; 84443; 85025

== ENCOUNTER → 2024-02-09 | Outpatient (CLI) | payer OTHER, SELFPAY ==
--- NOTE | 2024-02-09 13:24 | BI_ITS ---
MAMMOGRAPHY - BILATERAL SCREENING 3-D TOMOSYNTHESIS REASON FOR EXAM: Female, 63 years old. screening mammogram PERTINENT HISTORY: No significant family history. TECHNIQUE: 2-D mammograms and 3-D Tomosynthesis of the breast (s) were performed. CAD was performed. COMPARISON: 01/28/2023 FINDINGS: The breast composition is heterogeneously dense that can obscure small breast masses. Scattered benign calcifications are seen. No dense spiculated masses or suspicious microcalcifications are identified. No architectural distortion is identified. There is no skin thickening or retraction. There has been no significant change since the prior study. BI/SCRN MAMM (CAD)W/YISEL BILAT IMPRESSION: No mammographic signs of malignancy. Routine yearly mammograms recommended. ASSESSMENT CATEGORY: BIRADS Category 1: Negative. A letter regarding these results will be sent to the patient by the facility within 30 days. FOLLOW UP RECOMMENDATION: Yearly follow up mammogram recommended. (A) Approximately 10% of breast cancers are not detected by mammography. A normal mammogram should not delay biopsy of a clinically suspicious abnormality. Electronically Signed: Jean Pierre Dominique MD at 14:16 EDT ,
--- NOTE | 2024-02-09 13:28 | BD_ITS ---
STUDY: DUAL ENERGY X-RAY ABSORPTIOMETRY / DXA REASON FOR EXAM: Female, 63 years old. osteopenia TECHNIQUE: Bone Mineral Density (BMD) measurements of lumbar spine and bilateral hips were obtained. COMPARISON: Comparison is made with prior study September 02, 2021 and May 10, 2018. FINDINGS: Lumbar Spine (L1-L4): g/cm2 (0.863) / T-score (-1.7) / Z-score (0.0) Findings are suggestive of osteopenia with a moderate fracture risk. Left Femur Total: g/cm2 (0.811) / T-score (-1.1) / Z-score (0.1) Left Femoral Neck: g/cm2 (0.723) / T-score (-1.1) / Z-score (0.3) Right Femur Total: g/cm2 (0.876) / T-score (-0.5) / Z-score (0.6) Right Femoral Neck: g/cm2 (0.744) / T-score (-0.9) / Z-score (0.5) The T-Scores on the most recent prior examination were: Lumbar Spine (L1-L4): There has been improvement of bone density since the previous examination. Left Femur Total: which represents an improvement of 0.8%. Right Femur Total: which represents a worsening of 0.5%. BD/Dexa Bone Density Study IMPRESSION: The patient is considered osteopenic as outlined below according to World Werner Organization (WHO) criteria with a moderate fracture risk. There has been improvement of bone density since the previous examination. Reference Information: The T-score is the number of standard deviations above or below the standard which is normal for young adults at their peak bone mineral density. The World Health Organization (WHO) interprets the T-scores as follows: Above -1 Normal bone density Between -1 and -2.5 Osteopenia Equal to / or below -2.5 Osteoporosis As a practical clinical guideline, osteopenia may be graded as follows: Mild -1 through -1.5 Moderate -1.6 through -2.0 Severe -2.1 through -2.4 The Z-score is the number of standard deviations above or below age-matched controls. A Z-score of less than -1.5 would be considered abnormal. References: 1. NIH Osteoporosis and Related Bone Diseases www osteo.org 2. International Society for Clinical Densitometry www iscd.org 3. National Osteoporosis Foundation www nof.org Electronically Signed: Raheel Gomez MD at 13:25 EDT ,
== END | disposition home or self-care (01) ==
LOC: OPBD 13:24
PROVIDERS: PCP Internal Medicine; Referring Provider Obstetrics & Gynecology; Visit Provider Obstetrics & Gynecology
DX: Z12.31 Encounter for screening mammogram for malignant neoplasm of breast (principal); M85.80 Other specified disorders of bone density and structure, unspecified site
CPT/HCPCS: 77063; 77067; 77080

== ENCOUNTER → 2024-10-13 | Outpatient (CLI) | payer OTHER, SELFPAY ==
--- OUTSIDE RECORDS SUMMARY | 2024-10-13 09:21 | XMS RPT_ITS | CCD ---
Author Organization [facility] Care Team Providers Care Head Of Talent Management Name Role Phone Juanita Anderson MD Primary Care Provider Dr. Filiberto Benitez Primary Care Provider Dr. Filiberto Benitez Referring Provider Farhana TURPENTINE FARMER, TURPENTINE FARMER-C Shannan Attending Provider Cammy Bonilla Attending Provider Unavailable Dr. Juanita Anderson Attending Provider [phone] JUANITA ANDERSON MD Primary Care Physician FLOR WALLACE, DR. CARRANZA Attending UnavailJUANITA Sanford MD Primary Care Unavailab Dr. Juanita Saha Primary Care Provider Dr. Juanita Anderson Referring Provider [phone] Magy TURPENTINE FARMER, TURPENTINE FARMER-C Deepa Bundy Attending Provider [phone] Dr. Juanita Anderson Attending Provider [phone] Dr. Juanita Anderson Primary Care Provider [phone] Dr. Juanita Anderson Attending Provider [phone] Dr. Juanita Anderson Referring Provider [phone] Dr. Celeste Martinez Attending Provider [phone] Dr. Juanita Anderson Primary Care Provider [phone] Dr. Juanita Anderson Referring Provider [phone] Breanna TURPENTINE FARMER, TURPENTINE FARMER-C Leonardo Carreon Attending Provider Dr. Jeanne Barrios Attending Provider Justin Efewongbe Attending Unavailable Olemichaele, Efewongbe Referring Unavailable Olemichaele, Efewongbe Primary Care Unavailable Olemichaele, Efewongbe Attending Unavailable Olemichaele, Efewongbe Primary Care Unavailable Jeanne Barrios Attending Unavailable Jeanne Barrios Referring Unavailable Olemichaele, Efewongbe Primary Care Unavailable Olemichaele, Efewongbe Referring Unavailable Olemichaele, Efewongbe Primary Care Unavailable Jeanne Barrios Attending Unavailable Allergies Allergy Classification Reported Allergen(s) Allergy Type Date of Onset Reaction(s) Facility (9 sources) Amoxicillin; Translations: [amoxicillin] Drug Allergy 5 Rash [facility] Work Phone: (2 sources) Shellfish; Translations: [Shellfish] Propensity to adverse reactions 7 Vomiting [facility] Work Phone: (8 sources) Shellfish; Translations: [shellfish derived] Allergy to substance 2 Other [facility] (1 source) Amoxicillin Drug Allergy 5 [facility] Repository Medications Current Medications Medication Drug Class(es) Dates Sig (Normalized) Sig (Original) Calcium (1 source) Phosphate Binder, Calcium Start: 03-09-2022 take 1 tablet by mouth twice daily Calcium 600+D oral tablet Dose = 1 tab(s), Oral, BID, 0 Refill(s) Start Date: 03/09/22 Status: Ordered calcium carbonate 1500 mg / cholecalciferol 800 unt oral tablet (10 sources) Vitamin D Start: 03-03-2023 take 1 tablet by mouth once daily Calcium Carbonate-Vitami n D3 Active 1 TABLET PO DAILY March 03, 2023 1:00am Start: 02-17-2022 End: 03-03-2023 Calcium Carbonate-Vitamin D3 (Calcium 600 With Vitamin D3) 600 mg-12.5 mcg (500 unit) capsule Discontinued CAP PO February 17, 2022 12:00am March 03, 2023 10:53am Start: 12-26-2013 take 1 tablet by sánchez th once daily calcium carbonate 600 mg-cholecalciferol 200 units (CALCIUM 600 + D,3,) 600 mg(1,500mg) -200 unit tab Take 1 tablet by mouth once daily. 0 12/26/2013 Active Comment on above: Take 1 tablet by sánchez th once daily. cholecalciferol 0.025 mg oral capsule (9 sources) Vitamin D Start: 03-03-20 take 1 capsule by mouth once daily Cholecalciferol (Vitamin D3) (Vitamin D3) 25 mcg (1,000 unit) capsule Active 25 MCG PO DAILY March 03, 2023 1:00am Start: 02-17-2022 cholecalcifero l (vitamin D3) 4,000 unit capsule Active 1000 UNIT PO daily February 17, 2022 1:17pm Start: 09-14-2017 End: 02-17-2022 take 1 capsule by mouth once daily cholecalciferol (vitamin D3) 4,000 unit capsule Discontinued 4000 UNIT PO daily September 13, 2017 11:00pm February 17, 2022 1:18pm Start: 06-11-2014 take 1 tablet by sánchez th once daily cholecalciferol (VITAMIN D3) 1,000 unit tab Indications: Vitamin D deficiency Take 1 tablet by mouth once daily. 0 06/11/2014 Active Comment on above: Take 1 tablet by sánchez th once daily. Turmeric Root Extract (7 sources) Start: 04-24-2021 take 500 mg by mouth twice daily Turmeric Root Extract Active 500 MG PO TWICE A DAY April 24, 2021 2:56pm Start: 04-24-2021 End: 02-10-2022 take 500 mg by mouth twice daily Turmeric Root Extract Discontinued 500 MG PO TWICE A DAY April 24, 2021 1:00am February 10, 2022 11:58am Start: 04-24-2021 End: 02-10-2022 take 500 mg by mouth twice daily Turmeric Root Extract Discontinued 500 MG PO TWICE A DAY April 24, 2021 12:00am February 10, 2022 10:58am Start: 04-24-2021 take 500 mg by mouth twice daily Turmeric Root Extract Active 500 MG PO TWICE A DAY April 24, 2021 1:00am Vitamin D3 25 mcg (1000 intl units) oral capsule (1 source) Start: 03-09-2022 Vitamin D3 25 mcg (1000 intl units) oral capsule Dose : 25 mcg = 1 cap(s), Oral, qDay, 0 Refill(s) Start Date: 03/09/22 Status: Ordered Completed/Discontinued Medications Medication Drug Class(es) Dates Sig (Normalized) Sig (Original) azithromycin 250 mg oral tablet (2 sources) Macrolide Antimicrobial Start: 04-26-2023 End: 08-16-2023 Azithromycin (Zithromax Z-Ayaan) 250 mg tablet Discontinued 0 PO .COMPLEX 6 April 26, 2023 1:00am August 16, 2023 3:01pm For 250 mg dose pack: take 500 mg today (day 1), then 250 mg for 4 days (days 2-5) PO benzonatate 200 mg oral capsule (5 sources) Non-narcotic Antitussive Start: 02-10-2022 End: 02-17-2022 Benzonatate Discontinued 200 MG PO 2 to 3 times per day February 10, 2022 12:00am February 17, 2022 2:17pm calcium carbonate 1500 mg oral tablet (14 sources) Start: 05-15-2021 End: 02-17-2022 take 1 tablet by mouth once daily Calcium Carbonate (Calcium 600) 600 mg calcium (1,500 mg) tablet Discontinued 600 MG PO DAILY May 15, 2021 1:00am February 17, 2022 2:17pm Start: 09-14-2017 End: 05-15-2021 take 1 tablet by mouth twice daily Calcium Carbonate (Calcium 500) 500 mg calcium (1,250 mg) tablet Discontinued 500 MG PO TWICE A DAY September 14, 2017 12:00am May 15, 2021 10:34am cholecalciferol (vitamin D3) 4,000 unit capsule (8 sources) Start: 02-17-2022 End: 03-03-2023 cholecalciferol (vitamin D3) 4,000 unit capsule Discontinued 1000 UNIT PO daily February 17, 2022 2:17pm March 03, 2023 10:53am Start: 02-17-2022 End: 03-03-2023 cholecalciferol (vitamin D3) 4,000 unit capsule Discontinued 1000 UNIT PO daily February 17, 2022 1:17pm March 03, 2023 9:53am Start: 09-14-2017 End: 02-17-2022 take 1 capsule by mouth once daily cholecalciferol (vitamin D3) 4,000 unit capsule Discontinued 4000 UNIT PO daily September 14, 2017 12:00am February 17, 2022 2:18pm Start: 09-14-2017 End: 02-17-2022 take 1 capsule by mouth once daily cholecalciferol (vitamin D3) 4,000 unit capsule Discontinued 4000 UNIT PO daily September 13, 2017 11:00pm February 17, 2022 1:18pm doxycycline hyclate 100 mg oral tablet (5 sources) Tetracycline-class Drug Start: 02-10-2022 End: 02-20-2022 take 100 mg by mouth twice daily Doxycycline Hyclate Discontinued 100 MG PO TWICE A DAY 12 02February 10, 2022 12:00am February 20, 2022 12:04am estradiol 0.1 mg/ml vaginal cream (20 sources) Estrogen Start: 03-09-2022 Estrace Vaginal 0.1 mg/g vaginal cream 1 gram(s), Vaginal, 3x/Wk, 0 Refill(s) Start Date: 03/09/22 Status: Ordered Start: 05-31-2017 End: 08-16-2023 Estradiol (Estrace) 0.01 % ( 0.1 mg/gram) cream Discontinued 0 VAGINAL .COMPLEX 42.5 January 12, 2023 1:07pm August 16, 2023 3:14pm use fingertip amount 1-3x weekly for maintenance Start: 08-11-2016 estradiol (EST RACE) 0.01 % (0.1 mg/gram) vaginal cream Use fingertip amount nightly x 2 weeks, then every other night x 2 weeks, then 1-2x weekly for maintenance 1 Tube 3 08/11/2016 Active Comment on above: Use fingertip amount nightly x 2 weeks, then every other night x 2 weeks, then 1-2x weekly for maintenance hydroCHLOROthiazide 25 mg oral tablet (1 source) Thiazide Diuretic Start: 2013 take 1 tablet by mouth once daily as needed hydrochlorothiazide 25 mg tablet Take 1 tablet by mouth once daily as needed. for vertigo flare up (Dr. Rubalcava) 30 tablet 2 11/23/2013 Active Comment on above: Take 1 tablet by sánchez once daily as needed. for vertigo flare up (Dr. Rubalcava) levothyroxine sodium 0.088 mg oral tablet (20 sources) l-Thyroxine Start: 2021 Synthroid 88 mcg (0.088 mg) oral tablet 0 Refill(s) Start Date: 03/09/22 Status: Ordered Start: 09-14-2017 End: 07-23-2023 take 88 ug by mouth once daily Levothyroxine Discontin ued 88 MCG PO daily 90 July 22, 2023 7:49am July 23, 2023 8:33am Start: 01-31-2013 End: 09-14-2017 take 75 ug by mouth once daily Levothyroxine Discontin ued 75 MCG PO DAILY January 31, 2013 12:00am September 14, 2017 2:02pm Comment on above: Take 1 tablet by sánchez th daily before breakfast. naproxen sodium 220 mg oral tablet (1 source) Nonsteroidal Anti-inflammatory Drug Start: 08-08-2010 take 1 tablet by mouth every twelve hours as needed Naproxen Sodium (ALEVE) 220 mg ORAL tablet Take 1 tablet by mouth twice daily as needed. 0 08/08/2010 Active Comment on above: Take 1 tablet by sánchez th twice daily as needed. turmeric root extract 500 mg cap (1 source) Start: 04-12-2019 take 1 capsule by mouth twice daily turmeric root extract 500 mg cap Take 1 capsule by mouth twice daily. 0 04/12/2019 Active Comment on above: Take 1 capsule by mo uth twice daily. Problems Active Problems Problem Classification Problem Date Documented Da te Episodic/Chronic Diseases of white blood cells (1 source) Decreased blood leukocyte number; Translations: [Other decreased white blood cell count] Onset: 12-26-2013 12-26-2013 Chronic Disorders of lipid metabolism (13 sources) Mixed hyperlipidemia; Translations: [Mixed hyperlipidemia] Onset: 10-13-2023 Chronic Headache; including migraine (2 sources) Tension-type headache; Translations: [Tension-type headache, unspecified, not intractable] Onset: 06-02-2006 06-02-2006 Chronic Nonmalignant breast conditions (1 source) Fibrosclerosis of breast; Translations: [Fibrosclerosis of unspecified breast] 02-26-2005 Chronic Nonspecific chest pain (7 sources) Chest pain; Translations: [Chest pain, unspecified] 01-31-2013 Episodic Nutritional deficiencies (2 sources) Vitamin D deficiency; Translations: [Vitamin D deficiency, unspecified] Onset: 12-26-2013 Chronic Other aftercare (1 source) Patient encounter status; Translations: [Other terminal operator (current) drug therapy] Episodic Other bone disease and musculoskeletal deformities (8 sources) Osteopenia; Translations: [Other specified disorders of bone density and structure, unspecified site] Onset: 03-07-2013 03-07-2013 Episodic Other bone disease and musculoskeletal deformities (3 sources) Other specified disorders of bone density and structure, unspecified site; Translations: [Disorder of bone and cartilage, unspecified] Episodic Other female genital disorders (1 source) 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; Translations: [Other specified dyspareunia] Onset: 08-11-2016 08-11-2016 Chronic Other female genital disorders (9 sources) Dyspareunia; Translations: [Dyspareunia] 08-06-2022 Chronic Other lower respiratory disease (7 sources) H/O: pneumonia; Translations: [Personal history of pneumonia (recurrent)] 05-15-2021 Episodic Other lower respiratory disease (6 sources) Cough; Translations: [Cough] Episodic Other nervous system disorders (1 source) Ulnar neuropathy; 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 ulnar nerve, unspecified upper limb] 04-21-2021 Chronic Other nervous system disorders (7 sources) Carpal tunnel syndrome; Translations: [Carpal tunnel syndrome, unspecified upper limb] 05-15-2021 Chronic Other non-epithelial cancer of skin (7 sources) Basal cell carcinoma of skin; Translations: [Basal cell carcinoma of skin, unspecified] 05-15-2021 Episodic Other screening for suspected conditions (not mental disorders or infectious disease) (9 sources) Breast finding ; Translations: [Inconclusive mammogram] Onset: 08-25-2024 Episodic Other upper respiratory infections (10 sources) Acute sinusitis; Translations: [Acute sinusitis, unspecified] Episodic Residual codes; unclassified (7 sources) Family history of breast cancer; Translations: [Family history of malignant neoplasm of breast] 08-06-2022 Episodic Residual codes; unclassified (7 sources) Family history of prostate cancer; Translations: [Family history of malignant neoplasm of prostate] 04-24-2021 Episodic Residual codes; unclassified (3 sources) Family history of malignant neoplasm of breast; Translations: [Family history of malignant neoplasm of breast] Episodic Residual codes; unclassified (4 sources) FH: Congenital heart disease; Translations: [Family history of other congenital malformations, deformations and chromosomal abnormalities] 03-03-2023 Episodic Residual codes; unclassified (2 sources) Family history of other congenital malformations, deformations and chromosomal abnormalities; Translations: [Family history of other cardiovascular diseases] 03-03-2023 Episodic Spondylosis; intervertebral disc disorders; other back problems (1 source) Pain in cervical spine; Translations: [Cervical disc disorder, unspecified, unspecified cervical region] Chronic Spondylosis; intervertebral disc disorders; other back problems (8 sources) Sciatica; Translations: [Sciatica, unspecified side] Onset: 03-03-2005 03-03-2005 Episodic Thyroid disorders (14 sources) Acquired hypothyroidism; Translations: [Hypothyroidism, unspecified] Onset: 10-11-2023 Chronic Past or Other Problems Problem Classification Problem Date Documented Da te Episodic/Chronic Conditions associated with dizziness or vertigo (1 source) Benign paroxysmal positional vertigo; Translations: [Benign paroxysmal vertigo, unspecified ear] Onset: 06-02-2006 06-02-2006 Episodic Other female genital disorders (1 source) Disorder of female genital system; Translations: [Unspecified condition associated with female genital organs and menstrual cycle] Onset: 08-11-2016 08-11-2016 Episodic Results Test Name Value Interpretation Reference Range Facility Construction Coordinator Office Visit Reporton 08-25-2024 Construction Coordinator Office Visit Report [facility] [address], [place] [address] OFFICE VISIT Date of Service: 08/25/24 MR#: [id number] Acct: [id number] Name: CECY HONG GIDEON Rep #: [id number] : 1960 Provider: Dr. 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) Accounting Coordinator Required: No Is patient in pain?: No Allergies shellfish derived Allergy (Mild, Verified 08/25/24 14:30) Other amoxicillin (Amoxicillin) Allergy (Verified 08/25/24 14:30) Rash Medications ???Medication ???Instructions ???Recorded ???Confirmed ???Type calcium 600 mg (as 1 tab PO DAILY 03/03/23 08/25/24 H istory carbonate)-vitamin D3 20 mcg (800 unit) tablet cholecalciferol (vitamin D3) 25 25 mcg PO DAILY 03/03/23 08/25/24 History mcg (1,000 unit) capsule (Vitamin D3) calcium carbonate 400 mg PO DAILY 10/11/23 08/25/24 History levothyroxine 88 mcg tablet 88 mcg PO QDAY #90 tabs 07/25/24 0 08/25/24 Rx estradiol 0.01% (0.1 mg/gram) 1 appful vaginal .COMPLEX #42.5 08/25/24 Rx vaginal cream (Estrace) grams Is last menstrual period known: No Post menopausal: Yes Patient : No : No PFSH Medical History Family history of first degree relative with bicuspid aortic valve Health care maintenance Hyperlipidemia Chronic neck pain Hypothyroidism Basal cell carcinoma History of pneumonia Osteopenia Carpal tunnel syndrome Family history of prostate cancer in father Family history of breast cancer Thyroid disorder Surgical History History of hysteroscopy S/P foot surgery, left History of bilateral carpal tunnel release History of delivery Family History Mother Diabetes Hypertension Arthritis Myocardial infarction, Onset Age: 86 Thyroid disorder Father Cancer prostate Arthritis Grandmother Breast cancer Aunt Breast cancer Unknown Ovarian cancer Sister Thyroid disorder Thrombocythemia Brother Bladder cancer Aortic valve, bicuspid Social History adopted: No household members: spouse number of children: 2 current occupational status: retired pets and animals: No sexually active: Yes Smoking Status: Never smoker alcohol intake: current alcohol intake frequency: holidays/special occasions only details: social substance use type: does not use caffeine: Yes (1) Type: coffee what type of physical activity do you participate in: walking and bicycling frequency: 5-6 times per week seatbelt use: always do you feel safe at home: Yes additional social history: [employer]illi[employer]- Retired Patient is retired History 2 Elective abortions Hx Para 2 Spontaneous abortions Hx # Term Pregnancies Ectopic pregnancies Hx # Pregnancies Multiple births # of living children Past Pregnancies Del. Date Name GA/Weeks Outcome Route Bth Weight [facility] 1987 Martin Unknown 1991 Javier HPI Encounter for routine gynecological examination Details: CECY HONG is a 64 year old who presents for annual exam. has bees Last PAP: 08/16/23 - normal History of abnormal PAP: Last mammogram: 02/09/24 - normal History of abnormal mammogram: Colon cancer screening: coloscopy 2021 Other preventative health care screenings: PCP Justin. Dexa 2023. Female Reproductive History Questions: metorrhagia: No, sexually active: Yes, dyspareunia: No and PCB: No Menopausal Symptoms: No hot flashes, No night sweats, No weight change, No mood changes, No difficulty concentrating, No sleep problems and No change in libido ROS Const Constitutional: Reports as per HPI; Denies fatigue, increased appetite, poor appetite, night sweats, weight gain or weight loss Cardio Card: Denies chest pain Resp Resp: Denies cough or dyspnea GI GI: Reports as per HPI; Denies abdominal pain, bloating, constipation, nausea or vomiting : Reports as per HPI and other; Denies difficulty voiding, dysuria, hematuria, hot flashes, nipple discharge, pelvic pain, prolapse symptoms, urinary frequency, urinary incontinence, urinary urgency, vaginal discharge, vaginal dryness, vaginal odor or v (more content not included)... Normal [facility] Dexa Bone Density Studyon Dexa Bone Density Study [facility] Imaging Services [address] [place] [address] Dexa Bone Density Study MR#: [id number] Acct: [id number] Name: CECY HONG GIDEON Rep #: [id number] : 1960 F 63 From: Raheel eden MD PCP: Dr. Juanita Anderson MD Status: REG CLI Study: Dexa Bone Density Study Date of Exam: 02/09/24 Exam# [id number] Ordering Dr: Jeanne Barrios [id number] STUDY: DUAL ENERGY X-RAY ABSORPTIOMETRY / DXA REASON FOR EXAM: Female, 63 years old. osteopenia TECHNIQUE: Bone Mineral Density (BMD) measurements of lumbar spine and bilateral hips were obtained. COMPARISON: Comparison is made with prior study September 02, 2021 and May 10, 2018. FINDINGS: Lumbar Spine (L1-L4): g/cm2 (0.863) / T-score (-1.7) / Z-score (0.0) Findings are suggestive of osteopenia with a moderate fracture risk. Left Femur Total: g/cm2 (0.811) / T-score (-1.1) / Z-score (0.1) Left Femoral Neck: g/cm2 (0.723) / T-score (-1.1) / Z-score (0.3) Right Femur Total: g/cm2 (0.876) / T-score (-0.5) / Z-score (0.6) Right Femoral Neck: g/cm2 (0.744) / T-score (-0.9) / Z-score (0.5) The T-Scores on the most recent prior examination were: Lumbar Spine (L1-L4): There has been improvement of bone density since the previous examination. Left Femur Total: which represents an improvement of 0.8%. Right Femur Total: which represents a worsening of 0.5%. BD/Dexa Bone Density Study IMPRESSION: The patient is considered osteopenic as outlined below according to World Werner Organization (WHO) criteria with a moderate fracture risk. There has been improvement of bone density since the previous examination. [...] 1. NIH Osteoporosis and Related Bone Diseases www osteo.org 2. International Society for Clinical Densitometry www iscd.org 3. National Osteoporosis Foundation www nof.org Electronically Signed: Raheel Gomez MD at 13:25 EDT Reading Location ID and State: [facility] / [place] , Service support , CC: Dr. Juanita Anderson MD; Dr. Jeanne Barrios MD Weight Control Engineer: Signed Normal [facility] SCRN MAMM (CAD)W/YISEL BILATo n 02-09-2024 SCRN MAMM (CAD)W/YISEL BILAT [facility] Imaging Services [address] [place], [place] [address] SCRN MAMM (CAD)W/YISEL BILAT MR#: [id number] Acct: [id number] Name: CECY HONG Rep #: [id number] : 1960 F 63 From: Jean Pierre Dominique MD PCP: Dr. Juanita Anderson MD Status: REG [facility] Study: SCRN MAMM (CAD)W/YISEL BILAT Date of Exam: 01/24 10/17 Exam# [id number] Ordering Dr: Jeanne Barrios [id number] MAMMOGRAPHY - BILATERAL SCREENING 3-D TOMOSYNTHESIS REASON FOR EXAM: Female, 63 years old. screening mammogram PERTINENT HISTORY: No significant family history. TECHNIQUE: 2-D mammograms and 3-D Tomosynthesis of the breast (s) were performed. CAD was performed. COMPARISON: 01/28/2023 FINDINGS: The breast composition is heterogeneously dense that can obscure small breast masses. Scattered benign calcifications are seen. No dense spiculated masses or suspicious microcalcifications are identified. No architectural distortion is identified. There is no skin thickening or retraction. There has been no significant change since the prior study. BI/SCRN MAMM (CAD)W/YISEL BILAT IMPRESSION: No mammographic signs of malignancy. Routine yearly mammograms recommended. ASSESSMENT CATEGORY: BIRADS Category 1: Negative. A letter regarding these results will be sent to the patient by the facility within 30 days. FOLLOW UP RECOMMENDATION: Yearly follow up mammogram recommended. (A) Approximately 10% of breast cancers are not detected by mammography. A normal mammogram should not delay biopsy of a clinically suspicious abnormality. Electronically Signed: Jean Pierre Dominique MD at 14:16 EDT , CC: Dr. Juanita Anderson MD; Dr. Jeanne Barrios MD Weight Control Engineer: Signed Normal [facility] CBC W/Diff, Automatedon 06- Absolute Lymph 1.31 X10 3/uL Normal 0.83-4.51 [facility] Comment on above: Performed By: #### L 500.4050, L100.0100, L500.4100, L501.9520 #### [facility] [address] [place], [place], [id number] Absolute Neut 2.1 X10 3/uL Normal 2.0-7.7 [facility] Comment on above: Performed By: #### L 500.4050, L100.0100, L500.4100, L501.9520 #### [facility] [address] [place], [address] Basophils/100 WBC (Bld) 1.0 % Normal 0-1 [facility] Comment on above: Performed By: #### L 500.4050, L100.0100, L500.4100, L501.9520 #### [facility] [address] [place], [address] Eosinophils/100 WBC (Bld) 2.8 % Normal 0-5 [facility] Comment on above: Performed By: #### L 500.4050, L100.0100, L500.4100, L501.9520 #### [facility] [address] [place], [address] Erythrocyte distribution width (RBC) [Ratio] 12.9 % Normal 11.6-14.6 [facility] Comment on above: Performed By: #### L 500.4050, L100.0100, L500.4100, L501.9520 #### [facility] [address] [place], [address] Hematocrit (Bld) [Volume fraction] 41.5 % Normal 37-47 [facility] Comment on above: Performed By: #### L 500.4050, L100.0100, L500.4100, L501.9520 #### [facility] [address] [place], [address] Hemoglobin (Bld) [Mass/Vol] 13.3 g/dL Normal 12.0-15.0 [facility] Comment on above: Performed By: #### L 500.4050, L100.0100, L500.4100, L501.9520 #### [facility] [address] [place], [address] IG% 0.800 Normal 0.0-0.9 [facility] Comment on above: Result Comment: IG% - Immature Granulocytes (promyelocytes, myelocytes and metamyelocytes) > 1% indicates that a LEFT SHIFT is Present. Performed By: #### L 500.4050, L100.0100, L500.4100, [id number] #### [facility] [address] [place], [address] Lymphocytes/100 WBC (Bld) 33.0 % Normal 19-41 [facility] Comment on above: Performed By: #### L 500.4050, L100.0100, L500.4100, [id number] #### [facility] [address] [place], [address] MCH (RBC) [Entitic mass] 29.2 pg Normal 27.0-32.0 [facility] Comment on above: Performed By: #### L 500.4050, L100.0100, L500.4100, [id number] #### [facility] [address] [place], [address] MCHC (RBC) [Mass/Vol] 32.0 g/dL Normal 32-36 [facility] Comment on above: Performed By: #### L 500.4050, L100.0100, L500.4100, [id number] #### [facility] [address] [place], [address] MCV (RBC) [Entitic vol] 91.0 fL Normal 81-99 [facility] Comment on above: Performed By: #### L 500.4050, L100.0100, L500.4100, [id number] #### [facility] [address] [place], [address] Monocytes/100 WBC (Bld) 10.1 % High 0-10 [facility] Comment on above: Performed By: #### L 500.4050, L100.0100, L500.4100, [id number] #### [facility] [address] [place], [address] Neutrophils/100 WBC (Bld) 52.3 % Normal 47-70 [facility] Comment on above: Performed By: #### L 500.4050, L100.0100, L500.4100, [id number] #### [facility] [address] [place], [address] Nucleated RBC (Bld) [#/Vol] 0 10*3/uL Normal 0-5 [facility] Comment on above: Performed By: #### L 500.4050, L100.0100, L500.4100, [id number] #### [facility] [address] [place], [address] Platelet mean volume (Bld) [Entitic vol] 11.5 fL Normal 6.2-12.0 [facility] Comment on above: Performed By: #### L 500.4050, L100.0100, L500.4100, [id number] #### [facility] [address] [place], [address] Platelets (Bld) [#/Vol] 243 10*3/uL Normal 150-450 [facility] Comment on above: Performed By: #### L 500.4050, L100.0100, L500.4100, [id number] #### [facility] [address] [place], [address] RBC (Bld) [#/Vol] 4.56 10*6/uL Normal 4.2-5.4 [facility] Comment on above: Performed By: #### L 500.4050, L100.0100, L500.4100, [id number] #### [facility] [address] [place], [address] RDW SD 42.5 fl Normal 35.1-43.9 [facility] Comment on above: Performed By: #### L 500.4050, L100.0100, L500.4100, [id number] #### [facility] [address] [place], [address] WBC (Bld) [#/Vol] 4.0 10*3/uL Low 4.4-11.0 [facility] Comment on above: Performed By: #### L 500.4050, L100.0100, L500.4100, [id number] #### [facility] [address] [place], [address] Comprehensive Metabolic Prof ilon 10-11-2023 Albumin [Mass/Vol] 3.9 g/dL Normal 3.2-5.0 [facility] Comment on above: Performed By: #### L 500.4050, L100.0100, L500.4100, [id number] #### [facility] [address] [place], [address] Albumin/Globulin [Mass ratio] 1.1 {ratio} Normal 0.9-2.4 [facility] Comment on above: Performed By: #### L 500.4050, L100.0100, L500.4100, [id number] #### [facility] [address] [place], [address] ALK P 76 U/L Normal 45-117 [facility] Comment on above: Performed By: #### L 500.4050, L100.0100, L500.4100, [id number] #### [facility] [address] [place], [address] ALT [Catalytic activity/Vol] 20 U/L Normal 13-56 [facility] Comment on above: Performed By: #### L 500.4050, L100.0100, L500.4100, [id number] #### [facility] [address] [place], [address] AST [Catalytic activity/Vol] 22 U/L Normal 15-37 [facility] Comment on above: Performed By: #### L 500.4050, L100.0100, L500.4100, [id number] #### [facility] [address] [place], [address] Bilirubin [Mass/Vol] 0.90 mg/dL Normal 0.20-1.00 [facility] Comment on above: Result Comment: For patients on eltrombopag therapy, use of Dimension [place] TBIL is not recommended. Performed By: #### L 500.4050, L100.0100, L500.4100, [id number] #### [facility] [address] [place], [address] BUN/CRE 17.9 RATIO Normal 10-20 [facility] Comment on above: Performed By: #### L 500.4050, L100.0100, L500.4100, [id number] #### [facility] [address] [place], [address] CA,Total 8.9 mg/dL Normal 8.5-10.1 [facility] Comment on above: Performed By: #### L 500.4050, L100.0100, L500.4100, [id number] #### [facility] [address] [place], [address] Chloride [Moles/Vol] 103 mmol/L Normal 98-107 [facility] Comment on above: Performed By: #### L 500.4050, L100.0100, L500.4100, [id number] #### [facility] [address] [place], [address] CO2 [Moles/Vol] 27.0 mmol/L Normal 21.0-32.0 [facility] Comment on above: Performed By: #### L 500.4050, L100.0100, L500.4100, [id number] #### [facility] [address] [place], [address] Creatinine [Mass/Vol] 0.62 mg/dL Normal 0.55-1.02 [facility] Comment on above: Result Comment: The validity of the calculated GFR GFRAA in patients over 70 years has not been determined. Clinical correlation is essential. Performed By: #### L 500.4050, L100.0100, L500.4100, L501.9520 #### [facility] [address] [place], [address] EST GFR - AA 126 mL/min Normal >60 [facility] Comment on above: Result Comment: Afri can Ugand[place] GFR Calc Performed By: #### L 500.4050, L100.0100, L500.4100, [id number] #### [facility] [address] [place], [address] GAP 6 Normal 5-15 [facility] Comment on above: Performed By: #### L 500.4050, L100.0100, L500.4100, L501.9520 #### [facility] [address] [place], [address] GFR/1.73 sq M.predicted among non-blacks MDRD (S/P/Bld) [Vol rate/Area] 104 mL/min/{1.73_m2} Normal >60 [facility] Comment on above: Result Comment: Non- GFR Calc Performed By: #### L 500.4050, L100.0100, L500.4100, L501.9520 #### [facility] [address] [place], [address] Globulin (S) [Mass/Vol] 3.5 g/dL Normal 2.2-4.2 [facility] Comment on above: Performed By: #### L 500.4050, L100.0100, L500.4100, L501.9520 #### [facility] [address] [place], [address] Glucose [Mass/Vol] 102 mg/dL Normal 74-106 [facility] Comment on above: Result Comment: Fast ing Glucose result from 100 to 125 mg/dL suggests IMPAIRED HOMEOSTASIS per A.D.A. criteria. Performed By: #### L 500.4050, L100.0100, L500.4100, L501.9520 #### [facility] [address] [place], [address] Potassium [Moles/Vol] 4.0 mmol/L Normal 3.5-5.1 [facility] Comment on above: Performed By: #### L 500.4050, L100.0100, L500.4100, L501.9520 #### [facility] [address] [place], [address] Sodium [Moles/Vol] 136 mmol/L Normal 136-145 [facility] Comment on above: Performed By: #### L 500.4050, L100.0100, L500.4100, L501.9520 #### [facility] [address] [place], [address] T PROT 7.4 g/dL Normal 6.4-8.2 [facility] Comment on above: Performed By: #### L 500.4050, L100.0100, L500.4100, L501.9520 #### [facility] [address] [place], [address] Urea nitrogen [Mass/Vol] 11 mg/dL Normal 7-18 [facility] Comment on above: Performed By: #### L 500.4050, L100.0100, L500.4100, L501.9520 #### [facility] [address] [place], [address] Internal Medicine Office Vis casey 10-11-2023 Internal Medicine Office Visit [facility] [address] [place] [address] [place] [address] OFFICE VISIT Date of Service: 10/11/23 MR#: [id number] Acct: [id number] Name: CECY HONG Rep #: [id number] : 1960 Provider: Dr. Juanita smith MD Age/Sex: 63/F Location: [facility] Status: Signed with Addenda ADDENDUM by Dr. Juanita Anderson MD on 11/22/23 at 1557 HPI Details: CECY HONG, is a 63 F who presents to the office today for Assessment and Plan Assessment and Plan (1) Family history of first degree relative with bicuspid aortic valve: Status: Acute (2) Hyperlipidemia: Status: Chronic Qualifiers: Hyperlipidemia type: mixed hyperlipidemia Qualified Code(s): E78.2 - Mixed hyperlipidemia (3) Hypothyroidism: Status: Chronic Qualifiers: Hypothyroidism type: unspecified Qualified Code(s): E03.9 - Hypothyroidism, unspecified (4) Health care maintenance: Status: Acute Orders: Orders Comprehensive Metabolic Profil 10/11/23 E78.2 - Mixed hyperlipidemia CBC W/Diff, Automated 10/11/23 E78.2 - Mixed hyperlipidemia Thyroid Stim Hormone (TSH) 10/11/23 E03.9 - Hypothyroidism, unspecified Lipid Profile 10/11/23 E78.2 - Mixed hyperlipidemia Preventive Visit Code 40 - 65.- 77598 11/22/23 1557 Date Juanita Anderson MD cc: * Signed Intake Vital Signs 04/26/23 12:08 08/16/23 14:51 10/11/23 10:44 Height 5 ft 5 in 5 ft 5 in 5 ft 5 in Weight: 141 lb BMI 23.4 BP 110/74 Blood Pressure Location Lt brachial Position Sitting Respiration 14 Pulse 88 Pulse Source Monitor Temp 98.5 F Temp Source Temporal Pulse Oximetry (%) 99 Oxygen Delivery Method room air Intake Visit Reasons: YEARLY Chief Complaint: FU Chronic Conditions Accounting Coordinator Required: No Is patient in pain?: No Allergies shellfish derived Allergy (Mild, Verified 10/11/23 10:39) Other amoxicillin (Amoxicillin) Allergy (Verified 10/11/23 10:39) Rash Medications ???Medication ???Instructions ???Recorded ???Confirmed ???Type calcium carbonate 600 mg-vitamin 1 tab PO DAILY 03/03/23 10/11/23 History D3 20 mcg (800 unit) tablet cholecalciferol (vitamin D3) 25 25 mcg PO DAILY 03/03/23 10/11/23 History mcg (1,000 unit) capsule (Vitamin D3) levothyroxine 88 mcg tablet 88 mcg PO QDAY #90 tabs 07/23/23 10/11/23 Rx estradiol 0.01% (0.1 mg/gram) 1 appful vaginal .COMPLEX #42.5 08/16/23 10/11/23 Rx vaginal cream (Estrace) grams calcium carbonate 400 mg PO DAILY 10/11/23 10/11/23 History PFSH Medical History Family history of first degree relative with bicuspid aortic valve Health care maintenance Hyperlipidemia Chronic neck pain Hypothyroidism Basal cell carcinoma History of pneumonia Osteopenia Carpal tunnel syndrome Family history of prostate cancer in father Family history of breast cancer Thyroid disorder Surgical History History of hysteroscopy S/P foot surgery, left History of bilateral carpal tunnel release History of delivery Family History Mother Diabetes Hypertension Arthritis Myocardial infarction, Onset Age: 86 Thyroid disorder Father Cancer prostate Arthritis Grandmother Breast cancer Aunt Breast cancer Unknown Ovarian cancer Sister Thyroid disorder Thrombocythemia Brother Bladder cancer Aortic valve, bicuspid Social History (Updated 10/11/23 @ 10:44 by Teresita Lora MA) adopted: No household members: spouse number of children: 2 current occupational status: retired pets and animals: No sexually active: Yes Smoking Status: Never smoker alcohol intake: current alcohol intake frequency: holidays/special occasions only details: social substance use type: does not use caffeine: Yes (1) Type: coffee what type of physical activity do you participate in: walking and bicycling frequency: 5-6 times per week seatbelt use: always do you feel safe at home: Yes additional social history: [employer]- Retired Patient is retired HPI HPI Chief Complaint: FU Chronic Conditions Details: CECY HONG, is a 63 F who presents to the office today for follow-up chronic conditions. No acute concerns at this time. History of hyperlipidemia and labs done a few months ago with progressively worsening LDL cholesterol. She stays active and pays close attention to her diet. Previously, she was not open to a statin but she states that if her numbers worsen it is something she will consider taking. Also history of hypothyroidism on levothyroxine. No heat or cold intolerance or unintentional weight changes. Taking medicatio (more content not included)... Normal [facility] Lipid Profileon 10-11-2023 Cholesterol [Mass/Vol] 226 mg/dL High 200 [facility] Comment on above: Result Comment: <200 mg/dL Desirable 200-240 mg/dL Borderline >240 mg/dL High Risk Performed By: #### L 500.4050, L100.0100, L500.4100, L501.9520 #### [facility] [address] [place], [address] Cholesterol in HDL [Mass/Vol] 69 mg/dL Normal [facility] Comment on above: Result Comment: The drugs N-Acetylcysteine and Metamizole may falsely depress this assay. Reference Range HDL <40 mg/dL Low HDL Cholesterol HDL >or= 60 mg/dL High HDL Cholesterol Performed By: #### L 500.4050, L100.0100, L500.4100, L501.9520 #### [facility] [address] [place], [address] Cholesterol in LDL [Mass/Vol] 137 mg/dL High 0-130 [facility] Comment on above: Performed By: #### L 500.4050, L100.0100, L500.4100, L501.9520 #### [facility] [address] [place], [address] Cholesterol in VLDL [Mass/Vol] 20 mg/dL Normal 5-40 [facility] Comment on above: Performed By: #### L 500.4050, L100.0100, L500.4100, L501.9520 #### [facility] [address] [place], [address] Triglyceride [Mass/Vol] 99 mg/dL Normal [facility] Comment on above: Result Comment: The drugs N-Acetylcysteine and Metamizole may falsely depress this assay. Serum Triglycerides Reference Interval Normal <150 mg/dL Borderline high 150 - 199 mg/dL High 200 - 499 mg/dL Very High > or = 500 mg/dL Performed By: #### L 500.4050, L100.0100, L500.4100, L501.9520 #### [facility] [address] [place], [address] Thyroid Stim Hormone (TSH)on 10-11-2023 TSH 2.12 uIU/mL Normal 0.358-3.74 [facility] Comment on above: Performed By: #### L 500.4050, L100.0100, L500.4100, L501.9520 #### [facility] [address] [place], [place], [id number] No Panel InformationOrdered By: Jeanne Barrios on 08-18-2023 Miscellaneous Test Comment SEE SCANNED REPORT [facility] Cervical or vaginal specimen microscopic examination by liquid based cytology (reportOrdered By: Jeanne Barrios on 08-16-2023 Cytology report Cyto stain.thin prep Doc (Cvx/Vag) Comment . [facility] Comment on above: Criteria not met, HP V Genotype not performed.Performed at: - [address] [id number] Director: Gwen Rosales MD, Phone: [phone] at: =[facility] [id number] Director: Gwen Rosales MD, Phone: [phone] Cervical or vagninal specime n microscopic examination by cytology stain (reported asOrdered By: Jeanne Barrios on 08-16-2023 Cytology report Cyto stain Doc (Cvx/Vag) Comment . [facility] Comment on above: The Pap smear is a s creening test designed to aid in thedetection of premalignant and malignant conditions of theuterine cervix. It is not a diagnostic procedure andshould not be used as the sole means of detecting cervicalcancer. Both false-positive and false-negative reports dooccur. Detection in cervical specim en of any of human papilloma virus (HPV) 16, 18, 31, 33,Ordered By: Jeanne Barrios on 08-16-2023 HPV 16+18+31+33+35+39+45+5 1+52+56+58+59+66+68 DNA Probe+sig amp Ql (Cvx) Negative Negative [facility] Comment on above: This nucleic acid am plification test detects fourteen high- risk HPV types (16,18,31,33,35,39,45,51,52,56,58,59,66,68)without differentiation. Laboratory - CytologyOrdered By: Jeanne Barrios on 08-16-2023 Quality Assurance Assessor Cyto stain Nom (Cvx/Vag) [ID] Comment . [facility] Comment on above: Ann Patton, Cyto technologist (ASCP) Laboratory - Miscellaneous t estsOrdered By: Jeanne aBrrios on 08-16-2023 Service comment (Unsp spec) [Interp] . . [facility] Thin prep Papanicolaou smear with manual screeningOrdered By: Jeanne Barrios on 08-16-2023 Thin prep Papanicolaou smear with manual screening Comment . [facility] Comment on above: NEGATIVE FOR INTRAEP ITHELIAL LESION OR MALIGNANCY. Thin prep Papanicolaou smear with manual screening TNP [facility] Comment on above: Test not performedTh e Thin Prep(R) Cake Winder was unable to read this specimen.Therefore a manual review was performed. Absolute lymphocyte countOrd ered By: Juanita Anderson on 03-03-2023 Lymphocytes Auto (Unsp spec) [#/Vol] 1.32 10*3/uL 0.83-4.51 [facility] Basophil percentageOrdered B y: Juanita Anderson on 03-03-2023 Basophils/100 WBC (Bld) 1.4 % 0-1 [facility] Bilirubin [Mass/Vol] 0.70 mg/dL 0.20-1.00 [facility] Comment on above: For patients on eltr ombopag therapy, use of Dimension [place] TBIL is not recommended. Chloride [Moles/Vol] 103 mmol/L 98-107 [facility] Cholesterol [Mass/Vol] 244 mg/dL <200 [facility] Comment on above: <200 mg/dL Desirable 200-240 mg/dL Borderline >240 mg/dL High Risk Eosinophils/100 WBC (Bld) 1.9 % 0-5 [facility] Glucose [Mass/Vol] 97 mg/dL 74-106 [facility] Neutrophils (Bld) [#/Vol] 2.3 10*3/uL 2.0-7.7 [facility] Neutrophils/100 WBC (Bld) 55.6 % 47-70 [facility] Potassium [Moles/Vol] 4.1 mmol/L 3.5-5.1 [facility] Protein [Mass/Vol] 7.1 g/dL 6.4-8.2 [facility] Sodium [Moles/Vol] 135 mmol/L 136-145 [facility] Triglyceride [Mass/Vol] 82 mg/dL <199 [facility] Comment on above: The drugs N-Acetylcy steine and Metamizole may falsely depress this assay.Serum Triglycerides Reference Interval Normal <150 mg/dL Borderline high 150 - 199 mg/dL High 200 - 499 mg/dL Very High > or = 500 mg/dL WBC (Bld) [#/Vol] 4.2 10*3/uL 4.4-11.0 [facility] Blood erythrocytes count (nu mber/volume)Ordered By: Juanita Anderson on 03-03-2023 RBC (Bld) [#/Vol] 4.59 10*6/uL 4.2-5.4 [facility] Blood hemoglobin measurement (mass/volume)Ordered By: Juanita Anderson on 03-03-2023 Hemoglobin (Bld) [Mass/Vol] 13.4 g/dL 12.0-15.0 [facility] Blood lymphocytes/100 leukoc ytesOrdered By: Juanita Anderson on 03-03-2023 Lymphocytes/100 WBC (Bld) 31.7 % 19-41 [facility] Blood monocytes/100 leukocyt esOrdered By: [facility] on 03-03-2023 Monocytes/100 WBC (Bld) 8.9 % 0-10 [facility] Blood platelet mean volumeOr dered By: bong Anderson on 03-03-2023 Platelet mean volume (Bld) [Entitic vol] 11.6 fL 6.2-12.0 [facility] Determination of erythrocyte mean corpuscular volume (MCV)Ordered By: jacindaanna mariabianca Anderson on 03-03-2023 MCV (RBC) [Entitic vol] 91.1 fL 81-99 [facility] Hematocrit Auto (Bld) [Volum e fraction]Ordered By: [facility] Geronimopérez on 03-03-2023 Hematocrit (Bld) [Volume fraction] 41.8 % 37-47 [facility] - Chemistry and C hemistry - challengeOrdered By: [facility] on 03-03-2023 ALP [Catalytic activity/Vol] 72 U/L 45-117 [facility] ALT [Catalytic activity/Vol] 17 U/L 13-56 [facility] CO2 [Moles/Vol] 29.0 mmol/L 21.0-32.0 [facility] Globulin (S) [Mass/Vol] 3.2 g/dL 2.2-4.2 [facility] Urea nitrogen/Creatinine [Mass ratio] 20.4 mg/mg 10-20 [facility] - Hematology and Cell countsOrdered By: jacindaanna mariabianca Anderson on 03-03-2023 Erythrocyte distribution width (RBC) [Entitic vol] 43.7 fL 35.1-43.9 [facility] Erythrocyte distribution width (RBC) [Ratio] 13.0 % 11.6-14.6 [facility] Immature granulocytes/100 WBC (Bld) 0.500 % 0.0-0.9 [facility] Comment on above: IG% - Immature Granu locytes (promyelocytes, myelocytes and metamyelocytes) > 1% indicates that a LEFT SHIFT is Present. MCH (RBC) [Entitic mass] 29.2 pg 27.0-32.0 [facility] Nucleated RBC/100 WBC (Bld) [Ratio] 0 % 0-5 [facility] MCHC Auto (RBC) [Mass/Vol]Or dered By: Juanita Anderson on 03-03-2023 MCHC (RBC) [Mass/Vol] 32.1 g/dL 32-36 [facility] No Panel InformationOrdered By: Juanita Anderson on 03-03-2023 Estimated GFR (MDRD) Amer 121 mL/min >60 [facility] Comment on above: GFR Calc Estimated GFR (MDRD) Non-Af Amer 100 mL/min >60 [facility] Comment on above: Non- GFR Calc Thyroid Stimulating Hormone (TSH) 1.93 uIU/mL 0.358-3.74 [facility] Platelets bldOrdered By: Manav Anderson on 03-03-2023 Platelets (Bld) [#/Vol] 239 10*3/uL 150-450 [facility] Serum or plasma albumin raine urement (mass/volume)Ordered By: Juanita Anderson on 03-03-2023 Albumin [Mass/Vol] 3.9 g/dL 3.2-5.0 [facility] Serum or plasma albumin/glob ulin mass ratioOrdered By: Juanita Anderson on 03-03-2023 Albumin/Globulin [Mass ratio] 1.2 {ratio} 0.9-2.4 [facility] Serum or plasma calcium raine urement (mass/volume)Ordered By: Juanita Anderson on 03-03-2023 Calcium [Mass/Vol] 8.7 mg/dL 8.5-10.1 [facility] Serum or plasma cholesterol in HDL measurement (mass/volume)Ordered By: Juanita Anderson on 03-03-2023 Cholesterol in HDL [Mass/Vol] 76 mg/dL >40 [facility] Comment on above: The drugs N-Acetylcy steine and Metamizole may falsely depress this assay. Reference Range HDL <40 mg/dL Low HDL Cholesterol HDL >or= 60 mg/dL High HDL Cholesterol Serum or plasma cholesterol in VLDL measurement (mass/volume)Ordered By: Juanita Anderson on 03-03-2023 Cholesterol in VLDL [Mass/Vol] 16 mg/dL 5-40 [facility] Serum or plasma creatinine m easurement (mass/volume)Ordered By: Juanita Anderson on 03-03-2023 Creatinine [Mass/Vol] 0.64 mg/dL 0.55-1.02 [facility] Comment on above: The validity of the calculated GFR & GFRAA in patients over 70 years has not been determined. Clinical correlation is essential. Serum or plasma low density lipoprotein (LDL) cholesterol measurement (mass/volume)Ordered By: [facility] on 03-03-2023 Cholesterol in LDL [Mass/Vol] 152 mg/dL 0-130 [facility] Serum or plasma urea nitroge n measurement (mass/volume)Ordered By: [facility] [place] on 03-03-2023 Urea nitrogen [Mass/Vol] 13 mg/dL 7-18 [facility] Thin prep Papanicolaou smear with manual screeningOrdered By: Felicitasanna mariabianca Anderson on 03-03-2023 Thin prep Papanicolaou smear with manual screening 15 U/L 15-37 [facility] Thin prep Papanicolaou smear with manual screening 3 5-15 [facility] Absolute lymphocyte counton 03-31-2022 Lymphocytes Auto (Unsp spec) [#/Vol] 1.63 10*3/uL 0.83-4.51 [facility] Work Phone: Basophil percentageon 2021 Basophils/100 WBC (Bld) 1.2 % 0-1 [facility] Work Phone: Bilirubin [Mass/Vol] 0.70 mg/dL 0.20-1.00 [facility] Work Phone: Comment on above: For patients on eltr ombopag therapy, use of Dimension [place] TBIL is not recommended. Chloride [Moles/Vol] 105 mmol/L 98-107 [facility] Work Phone: Cholesterol [Mass/Vol] 222 mg/dL <200 [facility] Work Phone: Comment on above: <200 mg/dL Desirable 200-240 mg/dL Borderline >240 mg/dL High Risk Eosinophils/100 WBC (Bld) 2.4 % 0-5 [facility] Work Phone: [phone] Glucose [Mass/Vol] 100 mg/dL 74-106 [facility] Work Phone: Comment on above: Fasting Glucose resu lt from 100 to 125 mg/dL suggests IMPAIRED HOMEOSTASIS per A.D.A. criteria. Neutrophils (Bld) [#/Vol] 2.0 10*3/uL 2.0-7.7 [facility] Work Phone: Neutrophils/100 WBC (Bld) 47.0 % 47-70 [facility] Work Phone: [phone] Potassium [Moles/Vol] 4.0 mmol/L 3.5-5.1 [facility] Work Phone: Protein [Mass/Vol] 7.1 g/dL 6.4-8.2 [facility] Work Phone: [phone] Sodium [Moles/Vol] 137 mmol/L 136-145 [facility] Work Phone: Triglyceride [Mass/Vol] 91 mg/dL <199 [facility] Work Phone: Comment on above: The drugs N-Acetylcy steine and Metamizole may falsely depress this assay.Serum Triglycerides Reference Interval Normal <150 mg/dL Borderline high 150 - 199 mg/dL High 200 - 499 mg/dL Very High > or = 500 mg/dL WBC (Bld) [#/Vol] 4.2 10*3/uL 4.4-11.0 [facility] Work Phone: Blood erythrocytes count (nu mber/volume)on 03-31-2022 RBC (Bld) [#/Vol] 4.60 10*6/uL 4.2-5.4 [facility] Work Phone: Blood hemoglobin measurement (mass/volume)on 03-31-2022 Hemoglobin (Bld) [Mass/Vol] 13.7 g/dL 12.0-15.0 [facility] Work Phone: Blood lymphocytes/100 leukoc yteson 03-31-2022 Lymphocytes/100 WBC (Bld) 38.9 % 19-41 [facility] Work Phone: Blood monocytes/100 leukocyt eson 03-31-2022 Monocytes/100 WBC (Bld) 9.8 % 0-10 [facility] Work Phone: Blood platelet mean volumeon 03-31-2022 Platelet mean volume (Bld) [Entitic vol] 11.2 fL 6.2-12.0 [facility] Work Phone: Determination of erythrocyte mean corpuscular volume (MCV)on 03-31-2022 MCV (RBC) [Entitic vol] 88.9 fL 81-99 [facility] Work Phone: Hematocrit Auto (Bld) [Volum e fraction]on 03-31-2022 Hematocrit (Bld) [Volume fraction] 40.9 % 37-47 [facility] Work Phone: Laboratory - Chemistry and C hemistry - challengeon 03-31-2022 ALP [Catalytic activity/Vol] 65 U/L 45-117 [facility] Work Phone: ALT [Catalytic activity/Vol] 15 U/L 13-56 [facility] Work Phone: CO2 [Moles/Vol] 30.0 mmol/L 21.0-32.0 [facility] Work Phone: Globulin (S) [Mass/Vol] 3.1 g/dL 2.2-4.2 [facility] Work Phone: Urea nitrogen/Creatinine [Mass ratio] 22.7 mg/mg 10-20 [facility] Work Phone: Laboratory - Hematology and Cell countson 03-31-2022 Erythrocyte distribution width (RBC) [Entitic vol] 42.7 fL 35.1-43.9 [facility] Work Phone: Erythrocyte distribution width (RBC) [Ratio] 13.1 % 11.6-14.6 [facility] Work Phone: Immature granulocytes/100 WBC (Bld) 0.700 % 0.0-0.9 [facility] Work Phone: [phone] Comment on above: IG% - Immature Granu locytes (promyelocytes, myelocytes and metamyelocytes) > 1% indicates that a LEFT SHIFT is Present. MCH (RBC) [Entitic mass] 29.8 pg 27.0-32.0 [facility] Work Phone: [phone] Nucleated RBC/100 WBC (Bld) [Ratio] 0 % 0-5 [facility] Work Phone: [phone] MCHC Auto (RBC) [Mass/Vol]on 03-31-2022 MCHC (RBC) [Mass/Vol] 33.5 g/dL 32-36 [facility] Work Phone: No Panel Informationon 03-31 Estimated GFR (MDRD) Amer 126 mL/min >60 [facility] Work Phone: Comment on above: GFR Calc Estimated GFR (MDRD) Non-Af Amer 104 mL/min >60 [facility] Work Phone: Comment on above: Non- GFR Calc Thyroid Stimulating Hormone (TSH) 1.36 uIU/mL 0.358-3.74 [facility] Work Phone: [phone] Vitamin D 25-Hydroxy 47.3 ng/mL [facility] Work Phone: [phone] Comment on above: Vitamin D 25(OH) Sta tus Range Deficiency <20 ng/mL (50nmol/L) Insufficiency 20 - 30 ng/mL (50 - 75 nmol/L) Sufficiency 30 - 100 ng/mL (75 - 250 nmol/L) Toxicity >100 ng/mL (>250 nmol/L) Platelets bldon 03-31-2022 Platelets (Bld) [#/Vol] 237 10*3/uL 150-450 [facility] Work Phone: [phone] Serum or plasma albumin raine urement (mass/volume)on 03-31-2022 Albumin [Mass/Vol] 4.0 g/dL 3.2-5.0 [facility] Work Phone: Serum or plasma albumin/glob ulin mass ratioon 03-31-2022 Albumin/Globulin [Mass ratio] 1.3 {ratio} 0.9-2.4 [facility] Work Phone: Serum or plasma calcium raine urement (mass/volume)on 03-31-2022 Calcium [Mass/Vol] 8.7 mg/dL 8.5-10.1 [facility] Work Phone: Serum or plasma cholesterol in HDL measurement (mass/volume)on 03-31-2022 Cholesterol in HDL [Mass/Vol] 73 mg/dL >40 [facility] Work Phone: Comment on above: The drugs N-Acetylcy steine and Metamizole may falsely depress this assay. Reference Range HDL <40 mg/dL Low HDL Cholesterol HDL >or= 60 mg/dL High HDL Cholesterol Serum or plasma cholesterol in VLDL measurement (mass/volume)on 03-31-2022 Cholesterol in VLDL [Mass/Vol] 18 mg/dL 5-40 [facility] Work Phone: Serum or plasma creatinine m easurement (mass/volume)on 03-31-2022 Creatinine [Mass/Vol] 0.62 mg/dL 0.55-1.02 [facility] Work Phone: Comment on above: The validity of the calculated GFR & GFRAA in patients over 70 years has not been determined. Clinical correlation is essential. Serum or plasma low density lipoprotein (LDL) cholesterol measurement (mass/volume)on 03-31-2022 Cholesterol in LDL [Mass/Vol] 131 mg/dL 0-130 [facility] Work Phone: Serum or plasma urea nitroge n measurement (mass/volume)on 03-31-2022 Urea nitrogen [Mass/Vol] 14 mg/dL 7-18 [facility] Work Phone: Thin prep Papanicolaou smear with manual screeningon 03-31-2022 Thin prep Papanicolaou smear with manual screening 14 U/L 15-37 [facility] Work Phone: Thin prep Papanicolaou smear with manual screening 2 5-15 [facility] Work Phone: Basophil percentageon 2021 Cholesterol [Mass/Vol] 221 mg/dL <200 [facility] Work Phone: Comment on above: <200 mg/dL Desirable 200-240 mg/dL Borderline >240 mg/dL High Risk Triglyceride [Mass/Vol] 94 mg/dL [facility] Work Phone: Comment on above: The drugs N-Acetylcy steine and Metamizole may falsely depress this assay.Serum Triglycerides Reference Interval Normal <150 mg/dL Borderline high 150 - 199 mg/dL High 200 - 499 mg/dL Very High > or = 500 mg/dL Serum or plasma cholesterol in HDL measurement (mass/volume)on 08-01-2021 Cholesterol in HDL [Mass/Vol] 74 mg/dL [facility] Work Phone: Comment on above: The drugs N-Acetylcy steine and Metamizole may falsely depress this assay. Reference Range HDL <40 mg/dL Low HDL Cholesterol HDL >or= 60 mg/dL High HDL Cholesterol Serum or plasma cholesterol in VLDL measurement (mass/volume)on 08-01-2021 Cholesterol in VLDL [Mass/Vol] 19 mg/dL 5-40 [facility] Work Phone: Serum or plasma low density lipoprotein (LDL) cholesterol measurement (mass/volume)on 08-01-2021 Cholesterol in LDL [Mass/Vol] 128 mg/dL 0-130 [facility] Work Phone: CNOVon 04-14-2021 CNOV Office Visit (INTMWS ) CECY HONG ([id number]) 1960 F Date Time Provider Department 04/14/21 2:20 PM FILIBERTO BENITEZ INTFransiscaWS During your visit today, we recorded the following information about you: Pulse Respiration Blood pressure Weight 66/minute 16/minute 118/72 66.7 kg Filiberto Benitez MD 07/12/2021 3:53 PM Signed This note was created using [employer]. Subjective Cecy Hong is a 60 year old female. HISTORY Cecy Hong is a 60 year old lady here for yearly exam and follow up appointment. Neck and knee pain have become quite a bit worse the past year. Accident from 2002 seems to causing issues now. Does stretches. Not severe at this time. Able to do normal activities. Got a new pillow and doing better. Was waking up with sharp pain worse at night than in the day. Vertigo runs in the family. Cannot lay flat without pillow with be below the level of her body. PAST MEDICAL HISTORY Diagnosis Date - Benign [...] states 2008 - Unspecified hypothyroidism Current Outpatient Medications Medication Sig - levothyroxine (SYNTHROID) 88 mcg tablet Take 1 tablet by mouth daily before breakfast. - turmeric root extract 500 mg cap Take 1 capsule by mouth twice daily. - estradiol (ESTRACE) 0.01 % (0.1 mg/gram) vaginal cream Use fingertip amount nightly x 2 weeks, then every other night x 2 weeks, then 1-2x weekly for maintenance - cholecalciferol (VITAMIN D3) 1,000 unit tab Take 1 tablet by mouth once daily. - calcium carbonate 600 mg-cholecalciferol 200 units (CALCIUM 600 + D,3,) 600 mg(1,500mg) -200 unit tab Take 1 tablet by mouth once daily. - Naproxen Sodium (ALEVE) 220 mg ORAL tablet Take 1 tablet by mouth twice daily as needed. - hydrochlorothiazide 25 mg tablet Take 1 tablet by mouth once daily as needed. for vertigo flare up (Dr. Rubalcava) (Patient not taking: Reported on 04/14/2021 ) No current facility-administered medications for this visit. [...] - Breast Cancer Paternal Grandmother Social History Tobacco Use - Smoking status: Never Smoker - Smokeless tobacco: Never Used Substance Use Topics - Alcohol use: Yes Comment: Socially - Drug use: No Review of Systems Objective BP 118/72 Pulse 66 Resp 16 Wt 66.7 kg (147 lb) LMP 12/24/2009 BMI 24.46 kg/m? Physical Exam Vitals reviewed. Constitutional: Appearance: She is well-developed. HENT: Head: Normocephalic and atraumatic. Right Ear: External ear normal. Left Ear: External ear normal. Nose: Nose normal. Eyes: Conjunctiva/sclera: Conjunctivae normal. Neck: Thyroid: No thyromegaly. Cardiovascular: Rate and Rhythm: Normal rate and regular rhythm. Pulses: Normal pulses. Heart sounds: Normal heart sounds. No murmur heard. No friction rub. No gallop. Pulmonary: Effort: Pulmonary effort is normal. Breath sounds: Normal breath sounds. Abdominal: General: Bowel sounds are normal. There is no distension. Palpations: Abdomen is soft. There is no mass. Tenderness: There is no abdominal tenderness. Musculoskeletal: General: No deformity. Normal range of motion. Lymphadenopathy: Cervical: No cervical adenopathy. Skin: General: Skin is warm and dry. Coloration: Skin is not jaundiced or pale. Findings: No rash. Neurological: General: No focal deficit present. Mental Status: She is alert and oriented to person, place, and time. Cranial Nerves: No cranial nerve deficit. Sensory: No sensory deficit. Motor: No abnormal muscle tone. Coordination: Coordination normal. Deep Tendon Reflexes: Reflexes normal. Psychiatric: Attention and Perception: Attention and perception normal. Mood and Affect: Mood and affect normal. Speech: Speech normal. Behavior: Behavior normal. Thought Content: Thought content normal. Cognition and Memory: Cognition and memory normal. Judgment: Judgment normal. Component Latest (more content not included)... Normal [facility] Basophil percentageon 2020 Bilirubin [Mass/Vol] 0.60 mg/dL 0.20-1.00 [facility] Work Phone: Comment on above: For patients on eltr ombopag therapy, use of Dimension [place] TBIL is not recommended. Chloride [Moles/Vol] 103 mmol/L 98-107 [facility] Work Phone: Cholesterol [Mass/Vol] 270 mg/dL <200 [facility] Work Phone: Comment on above: <200 mg/dL Desirable 200-240 mg/dL Borderline >240 mg/dL High Risk Glucose [Mass/Vol] 94 mg/dL 74-106 [facility] Work Phone: Comment on above: Please note revised GLUCOSE reference range effective 2017. Potassium [Moles/Vol] 4.1 mmol/L 3.5-5.1 [facility] Work Phone: Protein [Mass/Vol] 7.2 g/dL 6.4-8.2 [facility] Work Phone: Sodium [Moles/Vol] 139 mmol/L 136-145 [facility] Work Phone: Triglyceride [Mass/Vol] 113 mg/dL [facility] Work Phone: Comment on above: The drugs N-Acetylcy steine and Metamizole may falsely depress this assay.Serum Triglycerides Reference Interval Normal <150 mg/dL Borderline high 150 - 199 mg/dL High 200 - 499 mg/dL Very High > or = 500 mg/dL WBC (Bld) [#/Vol] 5.0 10*3/uL 4.4-11.0 [facility] Work Phone: Blood erythrocytes count (nu mber/volume)on 04-08-2021 RBC (Bld) [#/Vol] 4.63 10*6/uL 4.2-5.4 [facility]: Blood hemoglobin measurement (mass/volume)on 04-08-2021 Hemoglobin (Bld) [Mass/Vol] 13.6 g/dL 12.0-15.0 [facility] Work Phone: Blood platelet mean volumeon 04-08-2021 Platelet mean volume (Bld) [Entitic vol] 10.9 fL 6.2-12.0 [facility] Work Phone: Determination of erythrocyte mean corpuscular volume (MCV)on 04-08-2021 MCV (RBC) [Entitic vol] 88.6 fL 81-99 [facility] Work Phone: Hematocrit Auto (Bld) [Volum e fraction]on 04-08-2021 Hematocrit (Bld) [Volume fraction] 41.0 % 37-47 [facility] Work Phone: Laboratory - Chemistry and C hemistry - challengeon 04-08-2021 ALP [Catalytic activity/Vol] 73 U/L 45-117 [facility] Work Phone: ALT [Catalytic activity/Vol] 20 U/L 13-56 [facility] Work Phone: CO2 [Moles/Vol] 28.0 mmol/L 21.0-32.0 [facility] Work Phone: Free T4 [Mass/Vol] 1.12 ng/dL 0.76-1.46 [facility] Work Phone: Globulin (S) [Mass/Vol] 3.4 g/dL 2.2-4.2 [facility] Work Phone: Urea nitrogen/Creatinine [Mass ratio] 20.8 mg/mg 10-20 [facility] Work Phone: Laboratory - Hematology and Cell countson 04-08-2021 Erythrocyte distribution width (RBC) [Entitic vol] 41.9 fL 35.1-43.9 [facility] Work Phone: [phone] Erythrocyte distribution width (RBC) [Ratio] 12.9 % 11.6-14.6 [facility] Work Phone: MCH (RBC) [Entitic mass] 29.4 pg 27.0-32.0 [facility] Work Phone: MCHC Auto (RBC) [Mass/Vol]on 04-08-2021 MCHC (RBC) [Mass/Vol] 33.2 g/dL 32-36 [facility] Work Phone: No Panel Informationon 04-08 Estimated GFR (MDRD) Amer 106 mL/min >60 [facility] Work Phone: Comment on above: GFR Calc Estimated GFR (MDRD) Non-Af Amer 87 mL/min >60 [facility] Work Phone: Comment on above: Non- GFR Calc Free Triiodothyronine (T3) pg/dL 2.5 pg/mL 2.18-3.98 [facility] Work Phone: Thyroid Stimulating Hormone (TSH) 1.58 uIU/mL 0.358-3.74 [facility] Work Phone: Platelets bldon 04-08-2021 Platelets (Bld) [#/Vol] 270 10*3/uL 150-450 [facility] Work Phone: Serum or plasma albumin raine urement (mass/volume)on 04-08-2021 Albumin [Mass/Vol] 3.8 g/dL 3.2-5.0 [facility] Work Phone: Serum or plasma albumin/glob ulin mass ratioon 04-08-2021 Albumin/Globulin [Mass ratio] 1.1 {ratio} 0.9-2.4 [facility] Work Phone: [phone] Serum or plasma calcium raine urement (mass/volume)on 04-08-2021 Calcium [Mass/Vol] 8.5 mg/dL 8.5-10.1 [facility] Work Phone: [phone] Serum or plasma cholesterol in HDL measurement (mass/volume)on 04-08-2021 Cholesterol in HDL [Mass/Vol] 75 mg/dL [facility] Work Phone: Comment on above: The drugs N-Acetylcy steine and Metamizole may falsely depress this assay. Reference Range HDL <40 mg/dL Low HDL Cholesterol HDL >or= 60 mg/dL High HDL Cholesterol Serum or plasma cholesterol in VLDL measurement (mass/volume)on 04-08-2021 Cholesterol in VLDL [Mass/Vol] 23 mg/dL 5-40 [facility] Work Phone: Serum or plasma creatinine m easurement (mass/volume)on 04-08-2021 Creatinine [Mass/Vol] 0.72 mg/dL 0.55-1.02 [facility] Work Phone: Comment on above: The validity of the calculated GFR & GFRAA in patients over 70 years has not been determined. Clinical correlation is essential. Serum or plasma low density lipoprotein (LDL) cholesterol measurement (mass/volume)on 04-08-2021 Cholesterol in LDL [Mass/Vol] 172 mg/dL 0-130 [facility] Work Phone: Serum or plasma urea nitroge n measurement (mass/volume)on 04-08-2021 Urea nitrogen [Mass/Vol] 15 mg/dL 7-18 [facility] Work Phone: Thin prep Papanicolaou smear with manual screeningon 04-08-2021 Thin prep Papanicolaou smear with manual screening 15 U/L 15-37 [facility] Work Phone: Thin prep Papanicolaou smear with manual screening 8 5-15 [facility] Work Phone: OBSOLETEon 10-17-2020 OBSOLETE Refill (INTMWS) CECY HONG ([id number]) 1960 F Date Time Provider Department 10/17/20 FILIBERTO BENITEZ During your visit today, we recorded the following information about you: Fransisca Montaño RN 10/17/2020 10:05 AM Signed Patient has been identified by name and date of : Yes Patient phones for refill(s): Pending Prescriptions Disp Refills LEVOTHYROXINE 88 MCG TABLET 90 tablet 3 Sig: Take 1 tablet by mouth daily before breakfast. GUERLINE: No Date of last office visit with pcp: 04-12-20. Next appt: 04-14-21 Last 2 Encounter Wt Readings: Date: Wt: 04/12/2020 65.8 kg (145 lb) 02/12/2020 65.3 kg (144 lb) Previous labs/tests for medication: Thyroid: TSH (IU/ml) Date Value 04/08/2020 1.70 Please advise. Thank you. Fransisca Montaño RN Allergies As of Date: 10/17/2020 Noted Allergy Reaction AMOXICILLIN 02/26/2005 2 - Rash SHELLFISH 08/03/2006 11 - Vomiting Comments: shortness of breath Date Reviewed: 04/12/2020 Reviewed by: Khadra Luu LPN - Fully Assessed Reason for Visit: Refill Request [94] Order(s):levothyroxine (SYNTHROID) 88 mcg tabletTake 1 tablet by mouth daily before breakfast.Disp: 90 tabletRfl: 3 Prescriptions as of 10/17/2020 Sig: LEVOTHYROXINE 88 MCG TABLET Take 1 tablet by mouth daily * TURMERIC ROOT EXTRACT 500 MG * Take 1 capsule by mouth twice* ESTRADIOL 0.01% (0.1 MG/GRAM)* Use fingertip amount nightly * CHOLECALCIFEROL (VITAMIN D3) * Take 1 tablet by mouth once d* CALCIUM CARBONATE 600 MG (1,5* Take 1 tablet by mouth once d* HYDROCHLOROTHIAZIDE 25 MG TAB* Take 1 tablet by mouth once d* * NAPROXEN SODIUM 220 MG TABLET Take 1 tablet by mouth twice * Problem List As Of Date 10/17/2020 Noted Resolved Irregular menstrual cycle [N92.6] 02/10/2011 FIBROSCLEROSIS OF BREAST [N60.39] Acquired hypothyroidism [E03.9] SCIATICA [M54.30] 03/03/2005 BENIGN PARXYSMAL VERTIGO [H81.10] 06/02/2006 TENSION HEADACHE [G44.209] 06/02/2006 MASS IN BREAST [N63.0] 04/30/2007 02/10/2011 Ocular migraine [G43.809] 05/08/2008 CTS (carpal tunnel syndrome) [G56.00] 12/26/2013 Neuropathy, 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 Medications Discontinued During This Encounter Prescriptions - levothyroxine (SYNTHROID) 88 mcg tablet (Discontinued) Take 1 tablet by mouth daily before breakfast. Encounter Status:Closed by SOPHIA GONZALEZ on 10/18/20 Normal [facility] Vital Signs Date Time Vital Sign Value Performing Clinician Facility 08-16-2023 14:51-0400 Body height 165.[address] Juanita Anderson Work Phone: [facility] 08-16-2023 14:51-0400 Body mass index (BMI) [Ratio] 23.5 kg/m2 Dr. Juanita Anderson Work Phone: [facility] 08-16-2023 14:51-0400 Body weight 64.[address] Juanita Anderson Work Phone: [facility] 08-16-2023 14:51-0400 Diastolic blood pressure 79 mm[Hg] Dr. Juanita Anderson Work Phone: [facility] 08-16-2023 14:51-0400 Systolic blood pressure 123 mm[Hg] Dr. Juanita Anderson Work Phone: [facility] 04-26-2023 12:08-0500 Body mass index (BMI) [Ratio] 22.9 kg/m2 Dr. Juanita Anderson Work Phone: [facility] 04-26-2023 12:08-0500 Body temperature 99.5 [degF] Dr. Juanita Anderson Work Phone: [facility] 04-26-2023 12:08-0500 Body weight 62.[address] Juanita Anderson Work Phone: [facility] 04-26-2023 12:08-0500 Heart rate 82 /min Dr. Juanita Anderson Work Phone: [facility] 04-26-2023 12:08-0500 Respiratory rate 16 /min Dr. Juanita Anderson Work Phone: [facility] 04-26-2023 12:08-0500 SaO2% (BldA) [Mass fraction] 98 % Dr. Juanita Anderson Work Phone: [facility] 03-03-2023 09:58-0500 Body height 167.[address] Juanita Anderson Work Phone: [facility] 03-03-2023 09:58-0500 Body temperature 97.8 [degF] Dr. Juanita Anderson Work Phone: [facility] 03-03-2023 09:58-0500 Diastolic blood pressure 62 mm[Hg] Dr. Juanita Anderson Work Phone: [facility] 03-03-2023 09:58-0500 Heart rate 71 /min Dr. Juanita Anderson Work Phone: [facility] 03-03-2023 09:58-0500 Respiratory rate 15 /min Dr. Juanita Anderson Work Phone: [facility] 03-03-2023 09:58-0500 SaO2% (BldA) [Mass fraction] 98 % Dr. Juanita Anderson Work Phone: [facility] 03-03-2023 09:58-0500 Systolic blood pressure 118 mm[Hg] Dr. Juanita Anderson Work Phone: [facility] 03-09-2022 10:56-0500 Diastolic Blood Pressure Non-Invasive [address] TERE RAY MD [facility] 03-09-2022 10:56-0500 Heart rate 82 /min DR TERE RAY MD [facility] 03-09-2022 10:56-0500 Respiratory rate 15 /min DR TERE RAY MD [facility] 03-09-2022 10:56-0500 Systolic Blood Pressure Non-Invasive [address] TERE RAY MD [facility] 03-09-2022 10:47-0500 Diastolic Blood Pressure Non-Invasive [address] TERE RAY MD [facility] 03-09-2022 10:47-0500 Heart rate 79 /min DR TERE RAY MD [facility] 03-09-2022 10:47-0500 Systolic Blood Pressure Non-Invasive [address] TERE RAY MD [facility] 03-09-2022 10:35-0500 Heart rate 84 /min DR TERE RAY MD [facility] 03-09-2022 10:35-0500 Respiratory Rate - Anes 12 br/min DR TERE RAY MD [facility] 03-09-2022 10:35-0500 systolic 150 mm[Hg] DR TERE RAY MD [facility] 03-09-2022 10:30-0500 diastolic 76 mm[Hg] DR TERE RAY MD [facility] 03-09-2022 10:30-0500 Respiratory Rate - Anes 20 br/min DR TERE RAY MD [facility] 03-09-2022 10:25-0500 Respiratory Rate - Anes 8 br/min DR TERE RAY MD [facility] 03-09-2022 09:38-0500 Body height 165.[address] TERE RAY MD [facility] 03-09-2022 09:38-0500 Body temperature 98.42 [degF] DR TERE RAY MD [facility] 03-09-2022 09:38-0500 Body weight [address] TERE RAY MD [facility] 03-09-2022 09:38-0500 Heart rate 83 /min DR TERE RAY MD [facility] 03-09-2022 09:38-0500 Respiratory rate 14 /min DR TERE RAY MD [facility] 02-17-2022 14:20-0400 Body height 167.[address] Juanita Anderson Work Phone: [facility] Work Phone: 02-17-2022 14:20-0400 Body mass index (BMI) [Ratio] 22.7 kg/m2 Dr. Juanita Anderson Work Phone: [facility] Work Phone: 02-17-2022 14:20-0400 Body temperature 98.8 [degF] Dr. Juanita Anderson Work Phone: [facility] Work Phone: 02-17-2022 14:20-0400 Body weight 63.[address] Juanita Anderson Work Phone: [facility] Work Phone: 02-17-2022 14:20-0400 Diastolic blood pressure 74 mm[Hg] Dr. Juanita Anderson Work Phone: [facility] Work Phone: 02-17-2022 14:20-0400 Heart rate 85 /min Dr. Juanita Anderson Work Phone: [facility] Work Phone: 02-17-2022 14:20-0400 Respiratory rate 14 /min Dr. Juanita Anderson Work Phone: [facility] Work Phone: 02-17-2022 14:20-0400 SaO2% (BldA) [Mass fraction] 98 % Dr. Juanita Anderson Work Phone: [facility] Work Phone: 02-17-2022 14:20-0400 Systolic blood pressure 116 mm[Hg] Dr. Juanita Anderson Work Phone: [facility] Work Phone: 02-10-2022 11:55-0400 Body mass index (BMI) [Ratio] 22.6 kg/m2 Dr. Juanita Anderson Work Phone: [facility] Work Phone: 02-10-2022 11:55-0400 Body temperature 98.4 [degF] Dr. Juanita Anderson Work Phone: [facility] Work Phone: 02-10-2022 11:55-0400 Body weight 63.[address] Juanita Anderson Work Phone: [facility] Work Phone: 02-10-2022 11:55-0400 Diastolic blood pressure 70 mm[Hg] Dr. Juanita Anderson Work Phone: [facility] Work Phone: 02-10-2022 11:55-0400 Heart rate 93 /min Dr. Juanita Anderson Work Phone: [facility] Work Phone: 02-10-2022 11:55-0400 Respiratory rate 15 /min Dr. Juanita Anderson Work Phone: [facility] Work Phone: 02-10-2022 11:55-0400 SaO2% (BldA) [Mass fraction] 97 % Dr. Juanita Anderson Work Phone: [facility] Work Phone: 02-10-2022 11:55-0400 Systolic blood pressure 122 mm[Hg] Dr. Juanita Anderson Work Phone: [facility] Work Phone: 05-23-2021 08:57-0500 Body height 165.[address] Filiberto Benitez Work Phone: [facility] Work Phone: 05-23-2021 08:57-0500 Body mass index (BMI) [Ratio] 24.4 kg/m2 Dr. Filiberto Benitez Work Phone: [facility] Work Phone: 05-23-2021 08:57-0500 Body temperature 98.4 [degF] Dr. Filiberto Benitez Work Phone: [facility] Work Phone: 05-23-2021 08:57-0500 Body weight 66.[address] Filiberto Benitez Work Phone: [facility] Work Phone: 05-23-2021 08:57-0500 Diastolic blood pressure 82 mm[Hg] Dr. Filiberto Benitez Work Phone: [facility] Work Phone: 05-23-2021 08:57-0500 Heart rate 97 /min Dr. Filiberto Benitez Work Phone: [facility] Work Phone: 05-23-2021 08:57-0500 Respiratory rate 16 /min Dr. Filiberto Benitez Work Phone: [facility] Work Phone: 05-23-2021 08:57-0500 SaO2% (BldA) [Mass fraction] 97 % Dr. Filiberto Benitez Work Phone: [facility] Work Phone: 05-23-2021 08:57-0500 Systolic blood pressure 140 mm[Hg] Dr. Filiberto Benitez Work Phone: [facility] Work Phone: 04-24-2021 12:57-0500 Body mass index (BMI) [Ratio] 24.4 kg/m2 Dr. Filiberto Benitez Work Phone: [facility] Work Phone: 04-24-2021 12:57-0500 Body weight 67.[address] Filiberto Benitez Work Phone: [facility] Work Phone: 04-24-2021 12:57-0500 Diastolic blood pressure 66 mm[Hg] Dr. Filiberto Benitez Work Phone: [facility] Work Phone: 04-24-2021 12:57-0500 Systolic blood pressure 118 mm[Hg] Dr. Filiberto Benitez Work Phone: [facility] Work Phone: 04-14-2021 15:17-0500 Body weight 66.68 kg Filiberto Benitez MD Work Phone: [facility] 04-14-2021 15:17-0500 Diastolic blood pressure 72 mm[Hg] Filiberto Benitez MD Work Phone: [facility] 04-14-2021 15:17-0500 Heart rate 66 /min Filiberto Benitez MD Work Phone: [facility] 04-14-2021 15:17-0500 Respiratory rate 16 /min Filiberto Benitez MD Work Phone: [facility] 04-14-2021 15:17-0500 Systolic blood pressure 118 mm[Hg] Filiberto Benitez MD Work Phone: [facility] Encounters Encounter Date Encounter Type Care Provider Facility Start: 08-25-2024 End: 08-25-2024 ambulatory Juanita Anderson Facility:[facility] Start: 02-09-2024 End: 02-09-2024 ambulatory Jeanne Barrios Facility:[facility] Start: 10-11-2023 End: 10-11-2023 ambulatory Juanita Anderson Facility:[facility] Start: 10-11-2023 End: 10-11-2023 ambulatory [facility] Justin Facility:[facility] Start: 08-18-2023 End: 08-18-[address] Juanita Anderson Work Phone: [facility] Work Phone: Start: 08-18-2023 End: 08-18-[address] Juanita Anderson Work Phone: [facility] Start: 08-16-2023 End: 08-16-[address] Juainta Anderson Work Phone: [facility] Work Phone: Start: 08-16-2023 End: 08-16-[address] Juanita Anderson Work Phone: [facility] Spec[facility] Work Phone: Start: 08-16-2023 End: 08-16-[address] Juanita Anderson Work Phone: [facility] Work Phone: Start: 04-26-2023 End: 04-26-[address] Juanita Anderson Work Phone: [facility] Work Phone: Start: 03-31-2023 Non-patient / Non-visit Dr. Zoran Anderson Work Phone: [facility] Start: 03-31-2023 End: 03-31-[address] Juanita Anderson Work Phone: [facility] Work Phone: Start: 03-31-2023 End: 03-31-[address] Juanita Anderson Work Phone: [facility] Work Phone: Start: 03-03-2023 End: 03-03-[address] Juanita Anderson Work Phone: [facility] Work Phone: Start: 03-03-2023 End: 03-03-2023 Encounter for general adult medical examination without abnormal findings Dr. Juanita Anderson Work Phone: [facility] Start: 03-03-2023 End: 03-03-[address] Juanita Anderson Work Phone: [facility] Work Phone: Start: 01-28-2023 End: 01-28-[address] Juanita Anderson Work Phone: [facility] Work Phone: Start: 03-31-2022 End: 03-31-[address] Juanita Anderson Work Phone: [facility] Work Phone: Start: 03-31-2022 End: 03-31-[address] Juanita Anderson Work Phone: [facility] Start: 03-09-2022 End: 03-10-[address] TERE RAY MD. Facility:[facility] Start: 03-09-2022 End: 03-09-[address] TERE RAY MD [facility] Start: 02-17-2022 End: 02-17-2022 Encounter for general adult medical examination without abnormal findings Dr. Juanita Anderson Work Phone: [facility] Start: 02-17-2022 End: 02-17-[address] Juanita Anderson Work Phone: [facility] Start: 02-10-2022 End: 02-10-[address] Juanita Anderson Work Phone: [facility] Start: 01-27-2022 End: 01-27-2022 ambulatory [facility] Work Phone: Start: 01-27-2022 End: 01-27-2022 Patient encounter procedure [facility] Start: 08-01-2021 End: 08-01-[address] Filiberto Benitze Work Phone: [facility] Start: 05-23-[address] Filiberto Benitez Work Phone: [facility] Start: 05-23-2021 End: 05-23-2021 Encounter for general adult medical examination without abnormal findings Dr. Filiberto Benitez Work Phone: [facility] Start: 05-23-2021 End: 05-23-[address] Filiberto Benitez Work Phone: [facility] Start: 05-15-2021 Non-patient / Non-visit Dr. Danika Benitez Work Phone: [facility] Start: 04-24-2021 End: 04-24-[address] Filiberto Benitez Work Phone: [facility] Start: 04-14-2021 End: 04-14-2021 Patient encounter procedure Filiberto Benitez MD Work Phone: [facility] Comment on above: Routine medical exam (Primary Dx); Acquired hypothyroidism; Vitamin D deficiency; Mixed hyperlipidemia; Encounter for long-term current use of medication; Cervical neck pain with evidence of disc disease Start: 04-14-2021 End: 04-14-2021 Patient encounter status Filiberto Benitez MD Work Phone: [facility] Start: 04-08-[address] Filiberto Benitez Work Phone: [facility] Procedures Date Procedure Procedure Detail Performing Clinician Start: 01-28-2023 Screening mammography Cathryn Anderson Work Phone: Start: 01-27-2022 Screening mammography Start: 04-12-2021 Adult depression scr eening assessment Filiberto Benitez MD Work Phone: Start: 01-17-2021 Mammography Filiberto shi MD Work Phone: Start: 03-10-2012 Colonoscopy Filiberto shi MD Work Phone: Carpal tunnel syndro me (disorder) DR TERE RAY MD section DR TERE RAY MD Colonoscopy DR TERE BERNAL MD Diverticulosis of colon DR Luis RAY MD Hysteroscopy DR TERE BERNAL MD Neuroma of foot (disorder) Cathryn RAY MD Comment on above: left foot. 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 YAZAN DISEASE VISIT ANNUAL PCP TEAM CHRONIC DISEASE VISIT [facility] Start: 04-14-2022 End: 04-14-2022 CBC panel - Blood by Automated count CBC Lab Routine Routine medical exam Encounter for long-term current use of medication Expected: 04/14/2022 (Approximate), Expires: 04/14/2022 [facility] Work Phone: Comment on above: Expected: 04/14/2022 (Approximate), Expires: 04/14/2022 Start: 04-14-2022 End: 04-14-2022 Comprehensive metabolic 2000 panel - Serum or Plasma COMP METABOLIC PANEL Lab Routine Routine medical exam Encounter for long-term current use of medication Expected: 04/14/2022 (Approximate), Expires: 04/14/2022 [facility] Work Phone: Comment on above: Expected: 04/14/2022 (Approximate), Expires: 04/14/2022 Start: 04-14-2022 End: 04-14-2022 LIPID PANEL BASIC LIPID PANEL BASIC Lab Routine Routine medical exam Mixed hyperlipidemia Expected: 04/14/2022 (Approximate), Expires: 04/14/2022 [facility] Work Phone: Comment on above: Expected: 04/14/2022 (Approximate), Expires: 04/14/2022 Start: 04-14-2022 End: 04-14-2022 T3 FREE BLD T3 FREE BLD Lab Routine Routine medical exam Acquired hypothyroidism Expected: 04/14/2022 (Approximate), Expires: 04/14/2022 [facility] Work Phone: Comment on above: Expected: 04/14/2022 (Approximate), Expires: 04/14/2022 Start: 04-14-2022 End: 04-14-2022 T4 FREE/FREE THYROX T4 FREE/FREE THYROX Lab Routine Routine medical exam Acquired hypothyroidism Expected: 04/14/2022 (Approximate), Expires: 04/14/2022 [facility] Work Phone: Comment on above: Expected: 04/14/2022 (Approximate), Expires: 04/14/2022 Start: 04-14-2022 End: 04-14-2022 Thyrotropin [Units/volume] in Serum or Plasma TSH BLD Lab Routine Routine medical exam Acquired hypothyroidism Expected: 04/14/2022 (Approximate), Expires: 04/14/2022 [facility] Work Phone: Comment on above: Expected: 04/14/2022 (Approximate), Expires: 04/14/2022 Start: 04-14-2022 End: 04-14-2022 VITAMIN D 25 HYDROXY VITAMIN D 25 HYDROXY Lab Routine Routine medical exam Vitamin D deficiency Expected: 04/14/2022 (Approximate), Expires: 04/14/2022 [facility] Work Phone: Comment on above: Expected: 04/14/2022 (Approximate), Expires: 04/14/2022 Start: 04-12-2022 Adult depression screening assessment DEPRESSION SCREENING [facility] Start: 03-10-2022 Colonoscopy COLONOSCOPY [facility] Start: 03-10-2022 COLORECTAL CANCER SCREENING COLORECTAL CANCER SCREENING [facility] Start: 01-17-2022 Mammography MAMMOGRAM [facility] Start: 08-11-2021 HPV TESTING HPV TESTING [facility] Start: 08-11-2021 PAP TESTING PAP TESTING [facility] Start: 2010 SHINGRIX VACCINE (1 of 2) SHINGRIX VACCINE (1 of 2) [facility] Start: 2005 COLOGUARD (FIT-DNA) COLOGUARD (FIT-D NA) [facility] Start: [address] COLONOGRAPHY [facility] Start: 2005 FECAL OCCULT BLOOD FECAL OCCULT BLOO D [facility] Start: 2005 SIGMOIDOSCOPY SIGMOIDOSCOPY [facility] Start: 1978 HEPATITIS C SCREENING HEPATITIS C RUPERT MONTIEL [facility] Start: 1978 HIV SCREENING HIV SCREENING [facility] DXA Bone [Mass/Area] Bone density [facility] MG Breast - bilatera l Screening [facility] Immunizations Immunization Date Immunization Notes Care Provider Fa stuart 02-17-2022 influenza, injectabl e, quadrivalent, preservative free Dr. Juanita Anderson Work Phone: [facility] 02-17-2022 influenza, seasonal, injectable Dr. Juanita Anderson Work Phone: [facility] Work Phone: 03-06-2021 influenza, injectabl e, quadrivalent, preservative free Filiberto Benitez MD Work Phone: [facility] 08-21-2020 COVID-19 vaccine, ag e 12+ yr (PFIZER-BIONTECH - PURPLE TOP) Filiberto Benitez MD Work Phone: [facility] 07-31-2020 COVID-19 vaccine, ag e 12+ yr (PFIZER-BIONTECH - PURPLE TOP) Filiberto Benitez MD Work Phone: [facility] 02-26-2020 Seasonal, quadrivale nt, recombinant, injectable influenza vaccine, preservative free Filiberto Benitez MD Work Phone: [facility] 04-12-2019 tetanus and diphther ia toxoids, adsorbed, preservative free, for adult use (5 Lf of tetanus toxoid and 2 Lf of diphtheria toxoid) Filiberto Benitez MD Work Phone: [facility] 01-28-2019 influenza, seasonal, injectable Filiberto Benitez MD Work Phone: [facility] 02-03-2018 Influenza, injectabl e, [place] Canine Kidney, preservative free, quadrivalent Filiberto Bneitez MD Work Phone: [facility] 02-01-2017 Influenza, injectabl e, Madin [place] Canine Kidney, preservative free, quadrivalent Filiberto Benitez MD Work Phone: [facility] 02-10-2016 influenza, injectabl e, quadrivalent, preservative free Dr. Juanita Anderson Work Phone: [facility] 02-10-2016 influenza, seasonal, injectable Dr. Filiberto Benitez Work Phone: [facility] Work Phone: 03-11-2015 influenza, injectabl e, quadrivalent, preservative free Dr. Juanita Anderson Work Phone: [facility] 03-11-2015 influenza, seasonal, injectable Dr. Filiberto Benitez Work Phone: [facility] Work Phone: 01-24-2014 influenza, injectabl e, quadrivalent, preservative free Dr. Juanita Anderson Work Phone: [facility] 01-24-2014 influenza, seasonal, injectable Dr. Filiberto Benitez Work Phone: [facility] Work Phone: 03-20-[address] Filiberto Benitez Work Phone: [facility] 05-08-2008 tetanus toxoid, redu jovanna diphtheria toxoid, and acellular pertussis vaccine, adsorbed Filiberto Benitez MD Work Phone: [facility] 04-26-1997 diphtheria and tetan us toxoids, adsorbed for pediatric use Filiberto Benitez MD Work Phone: [facility] Work Phone: Payers Date Payer Category Payer Self-pay [id number] 2022 Unknown [id number] 2018 Unknown MMO MMO [employer] [id number] 2018-Present [phone] [address] [place] [address] PPO [id number] 1960 Unknown [id number] Unknown [id number] Unknown [id number] Unknown [id number] Unknown [id number] Social History Date Type Detail Facility Start: 03-09-2022 Tobacco smoking stat us VTIS Never smoked tobacco [facility] Work Phone: Start: 04-14-2021 Alcohol intake Current drinke r of alcohol (finding) [facility] Start: 04-08-2021 History SDOH Alcohol Frequency 4 [facility] Start: 04-08-2021 History SDOH Alcohol Std Drinks 1 [facility] Start: 08-11-2016 History SDOH Alcohol Comment Socially [facility] Start: 04-08-2021 History SDOH Social Connections Phone 3 [facility] Start: 04-08-2021 History SDOH Social Connections Get Together 2 [facility] Start: 04-08-2021 History SDOH Physica l Activity MPS 6 [facility] Start: 04-08-2021 History SDOH Financial 5 [facility] Start: 1960 Sex Assigned At Not on file C [facility] Start: 03-15-2021 End: 04-14-2021 Exposure to SARS-CoV-2 (event) Not sure [facility] Start: 05-23-2021 End: 04-26-2023 Tobacco smoking status NHIS Unknown if ever smoked [facility] Start: 1960 Sex Assigned At Female A [facility] Functional Status Date Assessment Result Facility 03-09-2022 Functional Status Maintained [facility] [place] Mental Status Date Assessment Result Facility 03-09-2022 Mental Status Oriented x 4 [place] [facility] [place] Clinical Notes 04-30-2007 to 08-16-2023 Note Date & Type Note Facility 08-16-2023 Note [facility] Pap Smear Specimen Adequacy August 16, 2023 4:39pm Comment . Satisfactory for evaluation. Endocervical and/or squamous metaplasticcells (endocervical component) are present.Areas of partially obscuring inflammatory exudate are present. Comment on above: Satisfactory for paulina luation. Endocervical and/or squamous metaplasticcells (endocervical component) are present.Areas of partially obscuring inflammatory exudate are present. 08-16-2023 Note [facility] Pap Smear Specimen Adequacy August 16, 2023 4:39pm Comment . Satisfactory for evaluation. Endocervical and/or squamous metaplasticcells (endocervical component) are present.Areas of partially obscuring inflammatory exudate are present. Comment on above: Satisfactory for paulina luation. Endocervical and/or squamous metaplasticcells (endocervical component) are present.Areas of partially obscuring inflammatory exudate are present. 03-09-2022 Evaluation + Plan note Extrac justina from: Title:Clinical Document Author:TERE RAY Date:03/09/22 [place] ADMISSION HISTORY AN D PHYSICIAL CHIEF COMPLAINT: HISTORY OF PRESENT ILLNESS: REVIEW OF SYSTEMS: ACTIVE PROBLEMS: (2) Diverticula, colon ([id number]) Vertigo ([id number]) MEDICATIONS: Active Inpt Meds: None Active PRN Meds: None One Time Meds: None Active IV Meds: Lactated Ringers Infusion 1,000 mL (LR 1,000 mL) Start: 03/09/22 9:43:00 EST, Rate: 50 mL/hr, 03/09/22 9:43:00 EST ALLERGIES: (2) amoxicillin shellfish FAMILY HISTORY: SOCIAL HISTORY: PHYSICAL EXAM: VITALS: [id number](kg) 03/09 09:3836.9--[id number] 63.0 24 Hr Tmax: 36.9 at 03/09 09:38 36 Hr Tmax: 36.9 at 03/09 09:38 Vital Signs are the last 5 in the past 48 hours. Weights display the last 5 within 7 days. Initial Wt: 03/09 63.0 kg 139 lb Current Wt: 03/09 63.0 kg 139 lb GENERAL: HEENT: CARDIOVASCULAR: RESPIRATORY: ABDOMEN: EXREMETIES: NEUROLOGICAL: PSYCHIATRIC: LABS: No 36hr Lab Data DIAGNOSTICS: IMPRESSION: PLAN: History and Physical Update I have examined the patient; reviewed the H&P and there are no changes to the H&P unless noted below. [facility] 11-14-2022 Hospital Discharge instructions Patient Education 03/09/2022 10:50:06 Monitored Anesthesia Care, Care After Monitored Anesthesia Care, Care After These instructions provide you with information about caring for yourself after your procedure. Your health care provider may also give you more specific instructions. Your treatment has been plannedaccording to current medical practices, but problems sometimes occur. Call your health care provider if you have any problems or questions after your procedure. What can I expect after the procedure? After your procedure, you may: Feel sleepy for several hours. Feel clumsy and have poor balance for several hours. Feel forgetful about what happened after the procedure. Have poor judgment for several hours. Feel nauseous or vomit. Have a sore throat if you had a breathing tube during the procedure. Follow these instructions at home: For at least 24 hours after the procedure: Have a responsible adult stay with you. It is important to have someone help care for you until youare awake and alert. Rest as needed. Do not: ?Participate in activities in which you could fall or become injured. ?Drive. ?Use heavy machinery. ?Drink alcohol. ?Take sleeping pills or medicines that cause drowsiness. ?Make important decisions or sign legal documents. ?Take care of children on your own. Eating and drinking Follow the diet that is recommended by your health care provider. If you vomit, drink water, juice, or soup when you can drink without vomiting. Make sure you have little or no nausea before eating solid foods. General instructions Take ldlm-yxj-[id number] and prescription medicines only as told by your health care provider. If you have sleep apnea, surgery and certain medicines can increase your risk for breathing problems. Follow instructions from your health care provider about wearing your sleep device: ?Anytime you are sleeping, including during daytime naps. ?While taking prescription pain medicines, sleeping medicines, or medicines that make you drowsy. If you smoke, do not smoke without supervision. Keep all follow-up visits as told by your health care provider. This is important. Contact a health care provider if: You keep feeling nauseous or you keep vomiting. You feel light-headed. You develop a rash. You have a fever. Get help right away if: You have trouble breathing. Summary For several hours after your procedure, you may feel sleepy and have poor judgment. Have a responsible adult stay with you for at least 24 hours or until you are awake and alert. This information is not intended to replace advice given to you by your health care provider. Make sure you discuss any questions you have with your health care provider. Document Released: 08/02/2016 Document Revised: 07/11/2018 Document Reviewed: 08/02/2016 [employer] Patient Education 2020 [employer]. 03/09/2022 10:50:06 Colonoscopy, Adult, Care After, Aokm-[id number] Colonoscopy, Adult, Care After This sheet gives you information about how to care for yourself after your procedure. Your doctor may also give you more specific instructions. If you have problems or questions, call your doctor. What can I expect after the procedure? After the procedure, it is common to have: A small amount of blood in your poop for 24 hours. Some gas. Mild cramping or bloating in your belly. Follow these instructions at home: General instructions For the first 24 hours after the procedure: ?Do not drive or use machinery. ?Do not sign important documents. ?Do not drink alcohol. ?Do your daily activities more slowly than normal. ?Eat foods that are soft and easy to digest. Take kqgd-qec-jloxjdj or prescription medicines only as told by your doctor. To help cramping and bloating: Try walking around. Put heat on your belly (abdomen) as told by your doctor. Use a heat source that your doctor recommends, such as a moist heat pack or a heating pad. ?Put a towel between your skin and the heat source. ?Leave the heat on for 20 30 minutes. ?Remove the heat if your skin turns bright red. This is especially important if you cannot feel pain, heat, or cold. You can get burned. Eating and drinking Drink enough fluid to keep your pee (urine) clear or pale yellow. Return to your normal diet as told by your doctor. Avoid heavy or fried foods that are hard to digest. Avoid drinking alcohol for as long as told by your doctor. Contact a doctor if: You have blood in your poop (stool) 2 3 days after the procedure. Get help right away if: You have more than a small amount of blood in your poop. You see large clumps of tissue (blood clots) in your poop. Your belly is swollen. You feel sick to your stomach (nauseous). You throw up (vomit). You have a fever. You have belly pain that gets worse, and medicine does not help your pain. Summary After the procedure, it is common to have a small amount of blood in your poop. You may also have mild cramping and bloating in your belly. For the first 24 hours after the procedure, do not drive or use machinery, do not sign important documents, and do not drink alcohol. Get help right away if you have a lot of blood in your poop, feel sick to your stomach, have a fever, or have more belly pain. This information is not intended to replace advice given to you by your health care provider. Make sure you discuss any questions you have with your health care provider. Document Released: 05/15/2011 Document Revised: 02/10/2018 Document Reviewed: 01/04/2017 [employer] Patient Education 2020 [employer]. Follow Up Care 02/24/2022 12:39:22 With:TERE RAY MD Address: [address] [phone] When: Unknown Comments:next colonoscopy 10 yers [facility] 11-14-2022 Summary of episode note Discharge Instructions Thank you for allowing [facility] to assist you with your healthcare needs. The following is importantdischarge information regarding your hospital visit. Your Care Team JUANITA ANDERSON MD What to do next Follow Up Appointments Follow Up with TERE RAY MD When Why: next colonoscopy 10 yers Where: [address] [place] [address] [phone] Allergies amoxicillin shellfish Medications Please ask your primary doctor or pharmacist before taking any other medication not listed, including over the counter drugs, herbal medications, vitamins and or supplements as they may interact withyour home medications. What How Much When Instructions Last Dose Unchanged calcium-vitamin D (Calcium 600+D oral tablet) 1 tab(s) by mouth Two (2) times a day Unchanged cholecalciferol (Vitamin D3 25 mcg (1000 intl units) oral capsule) 1 cap by mouth Once a day Unchanged estradiol topical (Estrace Vaginal 0.1 mg/ g vaginal cream) 1 gram(s) Vaginal 3 times a week Unchanged levothyroxine (Synthroid 88 mcg (0.088 mg) oral tablet) Please take this list to your next doctor s visit. Bring all medications you take, including over the counter medications, herbals and other supplements with you to your doctor s visit. Patients and families are reminded to discard old lists and to update any records with all medication providers or retail pharmacies. Education Materials Monitored Anesthesia Care, Care After These instructions provide you with information about caring for yourself after your procedure. Your health care provider may also give you more specific instructions. Your treatment has been plannedaccording to current medical practices, but problems sometimes occur. Call your health care provider if you have any problems or questions after your procedure. What can I expect after the procedure? After your procedure, you may: Feel sleepy for several hours. Feel clumsy and have poor balance for several hours. Feel forgetful about what happened after the procedure. Have poor judgment for several hours. Feel nauseous or vomit. Have a sore throat if you had a breathing tube during the procedure. Follow these instructions at home: For at least 24 hours after the procedure: Have a responsible adult stay with you. It is important to have someone help care for you until youare awake and alert. Rest as needed. Do not: ? Participate in activities in which you could fall or become injured. ? Drive. ? Use heavy machinery. ? Drink alcohol. ? Take sleeping pills or medicines that cause drowsiness. ? Make important decisions or sign legal documents. ? Take care of children on your own. Eating and drinking Follow the diet that is recommended by your health care provider. If you vomit, drink water, juice, or soup when you can drink without vomiting. Make sure you have little or no nausea before eating solid foods. General instructions Take yhug-lfx-hgzxrov and prescription medicines only as told by your health care provider. If you have sleep apnea, surgery and certain medicines can increase your risk for breathing problems. Follow instructions from your health care provider about wearing your sleep device: ? Anytime you are sleeping, including during daytime naps. ? While taking prescription pain medicines, sleeping medicines, or medicines that make you drowsy. If you smoke, do not smoke without supervision. Keep all follow-up visits as told by your health care provider. This is important. Contact a health care provider if: You keep feeling nauseous or you keep vomiting. You feel light-headed. You develop a rash. You have a fever. Get help right away if: You have trouble breathing. Summary For several hours after your procedure, you may feel sleepy and have poor judgment. Have a responsible adult stay with you for at least 24 hours or until you are awake and alert. This information is not intended to replace advice given to you by your health care provider. Make sure you discuss any questions you have with your health care provider. Document Released: 08/02/2016 Document Revised: 07/11/2018 Document Reviewed: 08/02/2016 [employer] Patient Education 2020 [employer] Colonoscopy, Adult, Care After This sheet gives you information about how to care for yourself after your procedure. Your doctor may also give you more specific instructions. If you have problems or questions, call your doctor. What can I expect after the procedure? After the procedure, it is common to have: A small amount of blood in your poop for 24 hours. Some gas. Mild cramping or bloating in your belly. Follow these instructions at home: General instructions For the first 24 hours after the procedure: ? Do not drive or use machinery. ? Do not sign important documents. ? Do not drink alcohol. ? Do your daily activities more slowly than normal. ? Eat foods that are soft and easy to digest. Take bmlo-gfi-emqlqfd or prescription medicines only as told by your doctor. To help cramping and bloating: Try walking around. Put heat on your belly (abdomen) as told by your doctor. Use a heat source that your doctor recommends, such as a moist heat pack or a heating pad. ? Put a towel between your skin and the heat source. ? Leave the heat on for 20 30 minutes. ? Remove the heat if your skin turns bright red. This is especially important if you cannot feel pain, heat, or cold. You can get burned. Eating and drinking Drink enough fluid to keep your pee (urine) clear or pale yellow. Return to your normal diet as told by your doctor. Avoid heavy or fried foods that are hard to digest. Avoid drinking alcohol for as long as told by your doctor. Contact a doctor if: You have blood in your poop (stool) 2 3 days after the procedure. Get help right away if: You have more than a small amount of blood in your poop. You see large clumps of tissue (blood clots) in your poop. Your belly is swollen. You feel sick to your stomach (nauseous). You throw up (vomit). You have a fever. You have belly pain that gets worse, and medicine does not help your pain. Summary After the procedure, it is common to have a small amount of blood in your poop. You may also have mild cramping and bloating in your belly. For the first 24 hours after the procedure, do not drive or use machinery, do not sign important documents, and do not drink alcohol. Get help right away if you have a lot of blood in your poop, feel sick to your stomach, have a fever, or have more belly pain. This information is not intended to replace advice given to you by your health care provider. Make sure you discuss any questions you have with your health care provider. Document Released: 05/15/2011 Document Revised: 02/10/2018 Document Reviewed: 01/04/2017 [employer] Patient Education 2020 [employer] Additional Information VACCINATE! IT SAVES LIVES! Members of the community who have not yet received the COVID-19 vaccine and would like to receive it can visit one of [facility] vaccine clinics. There are many vaccine clinic locations within the [facility]. For locations and available times, please visit [email or web address] It is important to note that some COVID mobile vaccine clinics are held outdoors and may be canceled in rainy or stormy conditions. To learn more about pediatric vaccinations (ages 5-11), we invite you to visit the [facility] webpage. [email or web address]/[email or web address]-[email or web address]-[email or web address] stions.htmlTo learn more about the COVID-19 vaccine, we invite you to visit the [facility] website for a list of frequently asked questions. [email or web address]-[email or web address] _[email or web address]-Questions.pdf [facility] Patient Portal Access Instructions: Stay connected with your healthcare team and access your personal medical information anytime with the [facility] Patient Portal.If you would like a full copy of your medical records, please contact the [facility] Medical Records Department, Wednesday through Wednesday between 8a.m. and 4:30p.m. Please follow the directions below to access the portal: 1.Access the email account you provided upon registration to the [facility].2.Look for an invitation email from [facility].3.Open the email and access the invitation link: Accept Invitation to [facility]4.Fill in the required garza to create your account. Sign into [email or web address] with your username and password that you created in the above steps to stay up to date. You can then view a summary of results, a summary of your visits, and the ability to download your summaries to your computer or send the information securely to a physician. Remember that your healthcare information is confidential, so carefully consider who you will allow to register on the [facility] Patient Portal for access to your information. You can also access the [facility] Patient Portal on the [employer]. Simply click on Health Records under HCDCta and then click on the Ember logo. HOW TO SAFELY DISPOSE OF PRESCRIPTION MEDICATIONS Please use one of the following methods to safely dispose of your unused medications. 1.Use a drug disposal kit: the drug disposal pouch allows you to safely discard your old and unuseddrugs. Ask your nurse to give you one when you are discharged.2.Visit a local take-back location: Many local pharmacies and police departments have programs that collect old and unwanted prescriptiondrugs. Call your local pharmacy or go to http://Free All [employer] Software/1B9Hr6b to find one close to you.3.Make use of household items: Use cat litter or old coffee grounds to dispose medications if other options arenot available. Mix your drugs with these household products, seal them in an airtight container andthrow it into the garbage. Call [facility]: [phone] to be sure your drugs can be disposed of in this way. Some medicines may require a different approach.4.Never flush your medications down the toilet. IF YOU HAVE BEEN PRESCRIBED AN OPIOID FOR PAIN If you have been prescribed an opioid (such as hydrocodone, oxycodone or morphine), it is critical to understand the possible side effects and risks of opioid pain medications. Even when taken as directed, opioids can have several side effects including: Tolerance, meaning you might need to take more of a medication for the same pain relief. Nausea, vomiting and/or constipation. Sleepiness, dizziness, dry mouth, confusion, depression or itching. Physical dependence, meaning you have withdrawal symptoms when a medication is stopped, can develop within a few days. KNOW YOUR RESPONSIBILITIES It is important to know exactly how much and how often to take the opioid pain medications you are prescribed. Never take opioids in higher amounts or more often than prescribed. Do not combine opioids with alcohol or other drugs that cause drowsiness, such as benzodiazepines, also known as benzos, including diazepam and alprazolam, muscle relaxants or sleep aids. Never sell or share prescription opioids. This is illegal. Store opioids in a secure place and out of reach of others (including children, family, friends and visitors). The last page of this document has been signed and retained as a CHART COPY. Signatures Patient Education Materials Monitored Anesthesia Care, Care After Colonoscopy, Adult, Care After, Zqxv-yx-Eeco Medication Leaflets My discharge plan and instructions have been reviewed and explained to me and IHAL DEBORAH A understand my current condition and have read and understand these discharge instructions. I have received a written copy of the plan/instructions. If I have questions, I am aware that I should contactmy doctor. Patient/Property Clerk Signature: Date/Time: Relationship to Patient: Witness Name/Signature: Date/Time: [facility]11-14-2022 Note Patient: CECY HONG Age: 61 years Sex: Female : 1960 Associated Diagnoses: None Author: BEATA PRYOR Assessment Postanesthesia assessment Vitals: Vital signs from flowsheet : Vital Signs 03/09/2022 10:35 EST Heart Rate Monitored 84 bpm bpm Respiratory Rate - Anes 12 br/min br/min Systolic Blood Pressure Non-Invasive 150 mmHg mmHg 03/09/2022 10:30 EST Heart Rate Monitored 79 bpm bpm Respiratory Rate - Anes 20 br/min br/min Systolic Blood Pressure Non-Invasive 106 mmHg mmHg Diastolic Blood Pressure Non-Invasive 76 mmHg mmHg 03/09/2022 10:25 EST Heart Rate Monitored 87 bpm bpm Respiratory Rate - Anes 8 br/min br/min Systolic Blood Pressure Non-Invasive 87 mmHg mmHg Diastolic Blood Pressure Non-Invasive 66 mmHg mmHg 03/09/2022 10:20 EST Heart Rate Monitored 46 bpm bpm Respiratory Rate - Anes 19 br/min br/min Systolic Blood Pressure Non-Invasive 118 mmHg mmHg Diastolic Blood Pressure Non-Invasive 77 mmHg mmHg 03/09/2022 10:17 EST Diastolic Blood Pressure Non-Invasive 87 mmHg mmHg 03/09/2022 9:38 EST Temperature Temporal Artery 36.9 DegC Peripheral Pulse Rate 83 bpm Respiratory Rate 14 br/min Systolic Blood Pressure Non-Invasive 121 mmHg Diastolic Blood Pressure Non-Invasive 90 mmHg HI , Measurements from flowsheet . Mental status: alert & oriented x 4. Respiratory function: respirations are non-labored. Respiratory support: none. CV function: Regular rhythm. Cardiovascular support: none. Pain. Nausea status: see nursing documentation of medications. Postoperative hydration status: within normal limits. Digitally Signed by BEATA PRYOR on 03/09/2022 10:37 AM [facility]11-14-2022 Note Patient: CECY HONG Age: 61 years Sex: Female : 1960 Associated Diagnoses: None Author: BEATA PRYOR APRN-TECHNICAL SERVICES ASSISTANT Preoperative Information Time of last solid food intake: 03/09/2022 00:00:00 Time of last clear liquid intake: 03/09/2022 07:30:00 Anesthesia history Patient's history: negative. Family's history: negative. Health Status Allergies: Allergic Reactions (Selected) Severity Not Documented Amoxicillin- No reactions were documented. Shellfish- No reactions were documented., Allergies (2) ActiveReaction amoxicillinNone Documented shellfishNone Documented Current medications: (Selected) Inpatient Medications Ordered LR 1,000 mL: 50 mL/hr, Intravenous Documented Medications Documented Calcium 600+D oral tablet: 1 tab(s), Oral, BID, 0 Refill(s) Estrace Vaginal 0.1 mg/g vaginal cream: 1 gram(s), Vaginal, 3x/Wk, 0 Refill(s) Synthroid 88 mcg (0.088 mg) oral tablet: 0 Refill(s) Vitamin D3 25 mcg (1000 intl units) oral capsule: 25 mcg, 1 cap(s), Oral, qDay, 0 Refill(s), Medications (1) Active Scheduled: (0) Continuous: (1) Lactated Ringers Infusion 1,000 mL 1,000 mL, Intravenous, 50 mL/hr PRN: (0) Problem list: Active Problems (2) Diverticula, colon Vertigo Histories Past Medical History: No active or resolved past medical history items have been selected or recorded. Family History: Hypertension Mother High blood pressure Mother Father Heart attack Mother Enlarged prostate Father Diabetes Mother Procedure history: Diverticulosis of colon ([id number]). delivery ([id number]). Carpal tunnel ([id number]). Neuroma of foot ([id number]). Comments: 03/09/2022 9:33 Janneth Armenta RN left foot. Hysteroscopy ([id number]). Colonoscopy ([id number]). Social History Social & Psychosocial Habits Alcohol 03/09/2022 Use: Current Frequency: 3-5 times per week Substance Abuse 03/09/2022 Use: Never Tobacco 03/09/2022 Tobacco Use: Never (less than 100 in l Home/Environment 03/09/2022 Domestic Concerns Denies Nutrition/Health 03/09/2022 Type of diet: Regular . Physical Examination Vital Signs 03/09/2022 9:38 EST Temperature Temporal Artery 36.9 DegC Peripheral Pulse Rate 83 bpm Respiratory Rate 14 br/min Systolic Blood Pressure Non-Invasive 121 mmHg Diastolic Blood Pressure Non-Invasive 90 mmHg HI Vital Signs(last 24 hrs) Last Charted Resp Rate 14 br/min (MAR 09 09:38) BKX119 mmHg (MAR 09 09:38) DBPH 90mmHg (MAR 09:) Measurements from flowsheet : Measurements 03/09/2022 9:38 EST Height 165.1 cm Admission Weight 63.0 kg Weight Method Stated [place] Body Weight 57.00 kg Admission Body Mass Index 23.11 m2 Pain assessment: Pain Assessment 03/09/2022 9:38 EST Primary Pain Intensity 0 Pain Scale Type 0-10 Pain scale . General: Alert and oriented. Airway: Normal temporomandibular joint mobility, Normal mouth, Normal neck range of motion. Mallampati classification: II (soft palate, fauces, uvula visible). Dentition Evaluation: Denies loose/chipped teeth. Respiratory: Respirations are non-labored. Cardiovascular: Normal rate. Neurologic: Alert, Oriented. Review / Management Results review: No qualifying data available , Lab results 03/09/2022 10:19 EST SN - Proc - Anesthesia Type MAC SN - Proc - EBL 0 mL SN - Proc - Actual Procedure COLONOSCOPY 03/09/2022 10:18 EST SN - PP - Body Position Lateral Right Side-up Standard Intra-op 03/09/2022 10:18 EST SN - GCD - Post-operative Diagnosis SCREENING 03/09/2022 10:18 EST SN - GCD - ASA Class 2 SN - GCD - Case Level OPD Level 3 03/09/2022 10:18 EST SN - CAt - Case Attendee SN - CAt - Case Attendee SN - CAt - Case Attendee SN - CAt - Case Attendee SN - CAt - Case Attendee SN - CAt - Case Attendee SN - CAt - Case Attendee SN - CAt - Case Attendee SN - CAt - Role Performed Primary Surgeon SN - CAt - Role Performed TECHNICAL SERVICES ASSISTANT SN - CAt - Role Performed Kiln Feeder 1 SN - CAt - Role Performed Portfolio Mgr 03/09/2022 10:17 EST Corrie History and Physical 03/09/2022 9:38 EST Designated Person #1 We May Share PHI Designated Person #1 We May Share PHI Designated Person #1 Relationship Spouse Privacy Restrictions Requested None Height 165.1 cm Admission Weight 63.0 kg Weight Method Stated [place] Body Weight 57.00 kg Admission Body Mass Index 23.11 m2 Temperature Temporal Artery 36.9 DegC Peripheral Pulse Rate 83 bpm Respiratory Rate 14 br/min Systolic Blood Pressure Non-Invasive 121 mmHg Diastolic Blood Pressure Non-Invasive 90 mmHg HI Primary Pain Intensity 0 Pain Scale Type 0-10 Pain scale Heart Rhythm Regular Cardiac Rhythm Sinus rhythm Oxygen Therapy Room air Oxygen Saturation 98 % Abdomen Description Non-distended, Soft Swallowing Disorder None Bowel Sounds All Quadrants Present Urinary Elimination Voiding, no difficulties Status No, per patient Skin Temperature Warm Skin Description [place], Normal for ethnicity, Dry Skin Integrity Intact Skin Moisture General Dry IV Present Present Continuous IV Infusions LR Hand Right 03/09/2022 22 gauge Peripheral IV Activity: Insert new site Peripheral IV Site Condition: No complications Peripheral IV Number of Attempts: 1 Extremity Movement Equal Characteristics of Speech Clear Level of Consciousness Alert Strength All Extremities Strong Sensation All Extremities Intact Affect/Behavior Appropriate Orientation Oriented x 4 Sensory Deficits None Sleep Apnea Snore No Sleep Apnea Tired No Sleep Apnea Obstruction No Sleep Apnea Pressure No Sleep Apnea BMI No Sleep Apnea Age Yes Sleep Apnea Neck No Sleep Apnea Gender No Sleep Apnea Score 1 High Risk for Sleep Apnea No Diagnosed With Sleep Apnea No Advanced Directives Yes Advance Directive Location Family instructed to bring in copy Infectious Disease Symptoms Runny nose Infectious Disease Recent Exposure No Alcohol and Drug Use No Employee of Institutional Living No Health Care Employee No History of Exposure to TB No History of Positive Chest X-Ray for TB No History of Positive TB Skin Test No Homeless No Known Immunosuppression No Recent Immigrant No Resident of Institutional Living No Bloody Sputum No Fatigue No Fever No Loss of Appetite No Night Sweats No Persistent Cough > 3 Weeks No Weight Loss No Allergies Yes Mechanical Maintenance Supervisor On Yes Consent Form Signed Yes Patient Dressed In Hospital gown History & Physical Update On Chart Yes History & Physical On Chart Yes Obstructive Sleep Apnea Assess Completed Yes Arrival Mode Ambulatory Glasses Yes Dentures N/A GI Prep Results Large amount Orientation Assessment Oriented x 4 Safety Brochure Information Reviewed Unable to complete [place] Video Viewed No Barriers to Learning None evident Teaching Method Explanation Teaching Evaluation No further teaching needed Preferred Written Language Kiswahili Preferred Spoken Language Kiswahili Information Given by Patient Patient's Current Physicians DR ANDERSON ( [facility] ) Belongings At Bedside Pants, Shirt, Shoes Discharge To, Anticipated Home with family care Activity Status ADL Ambulating in cohn, Ambulating in room, Awake Assistive Device None NPO Status Maintained Standard Safety ID band on, Allergy Band on, Call device within reach, Bed in low position, Wheels locked, Visitor at bedside, Safety level maintained Prev Test Positive/Diagnosis w/COVID-19 No Current Quarantine/Isolated any Illness No Any Contact with Sick Animals/Birds No Traveled Anywhere in Last 30 Days No Allergy Band on and Verified Yes Patient ID Band on and Verified Yes Implants Verified Yes Pacemaker/AICD Verified Yes Last Fluid Intake 03/09/2022 7:30 Last Food Intake 03/08/2022 9:30 Last Void 03/09/2022 9:48 Lost Weight Unintentionally Recently No Eat Poorly Due to Decreased Appetite No Total MST Score 0 No Personal Devices, Patient Valuables Glasses Anesthesia/Transfusions Prior anesthesia Admission Note-Nursing Same Day Patient History . Assessment and Plan [place] [employer] Anesthesiologists (ASA) physical status classification: Class II. Anesthetic Preoperative Plan Anesthetic technique: MAC. Informed consent: signed by patient. Digitally Signed by BEATA PRYOR on 03/09/2022 10:20 AM [facility]11-14-2022 Note [place] ADMISSION HISTORY AND PHYSICIAL CHIEF COMPLAINT: HISTORY OF PRESENT ILLNESS: REVIEW OF SYSTEMS: ACTIVE PROBLEMS: (2) Diverticula, colon ([id number]) Vertigo ([id number]) MEDICATIONS: Active Inpt Meds: None Active PRN Meds: None One Time Meds: None Active IV Meds: Lactated Ringers Infusion 1,000 mL (LR 1,000 mL) Start: 03/09/22 9:43:00 EST, Rate: 50 mL/hr, 03/09/22 9:43:00 EST ALLERGIES: (2) amoxicillin shellfish FAMILY HISTORY: SOCIAL HISTORY: PHYSICAL EXAM: VITALS: GnercoVlmzQNMwfbsRSCdO5ZRI7RkmvEw(kg) 03/09 09:3836.9--[id number]/14 63.0 24 Hr Tmax: 36.9 at 03/09 09:38 36 Hr Tmax: 36.9 at 03/09 09:38 Vital Signs are the last 5 in the past 48 hours. Weights display the last 5 within 7 days. Initial Wt: 03/09 63.0 kg 139 lb Current Wt: 03/09 63.0 kg 139 lb GENERAL: HEENT: CARDIOVASCULAR: RESPIRATORY: ABDOMEN: EXREMETIES: NEUROLOGICAL: PSYCHIATRIC: LABS: No 36hr Lab Data DIAGNOSTICS: IMPRESSION: PLAN: History and Physical Update I have examined the patient; reviewed the H&P and there are no changes to the H&P unless noted below. Digitally Signed by TERE RAY MD on 03/09/2022 10:18 AM [facility]12-20-2021 NoteHNO ID: [id number] Author: Filiberto Benitez MD Service: ? Author Type: Physician Type: Progress Notes Filed: 07/12/2021 3:53 PM Note Text: This note was created using [employer] Systems[employer]. Subjective Cecy Hong is a 60 year old female. HISTORY Cecy Hong is a 60 year old lady here for yearly exam and follow up appointment. Neck and knee pain have become quite a bit worse the past year. Accident from 2002 seems to causing issues now. Does stretches. Not severe at this time. Able to do normal activities. Got a new pillow and doing better. Was waking up with sharp pain worse at night than in the day. Vertigo runs in the family. Cannot lay flat without pillow with be below the level of her body. PAST MEDICAL HISTORY Diagnosis Date - Benign [...] states 2008 - Unspecified hypothyroidism Current Outpatient Medications Medication Sig - levothyroxine (SYNTHROID) 88 mcg tablet Take 1 tablet by mouth daily before breakfast. - turmeric root extract 500 mg cap Take 1 capsule by mouth twice daily. - estradiol (ESTRACE) 0.01 % (0.1 mg/gram) vaginal cream Use fingertip amount nightly x 2 weeks, then every other night x 2 weeks, then 1-2x weekly for maintenance - cholecalciferol (VITAMIN D3) 1,000 unit tab Take 1 tablet by mouth once daily. - calcium carbonate 600 mg-cholecalciferol 200 units (CALCIUM 600 + D,3,) 600 mg(1,500mg) -200 unit tab Take 1 tablet by mouth once daily. - Naproxen Sodium (ALEVE) 220 mg ORAL tablet Take 1 tablet by mouth twice daily as needed. - hydrochlorothiazide 25 mg tablet Take 1 tablet by mouth once daily as needed. for vertigo flare up (Dr. Rubalcava) (Patient not taking: Reported on 04/14/2021 ) No current facility-administered medications for this visit. [...] - Breast Cancer Paternal Grandmother Social History Tobacco Use - Smoking status: Never Smoker - Smokeless tobacco: Never Used Substance Use Topics - Alcohol use: Yes Comment: Socially - Drug use: No Review of Systems Objective BP 118/72 Pulse 66 Resp 16 Wt 66.7 kg (147 lb) LMP 12/24/2009 BMI 24.46 kg/m? Physical Exam Vitals reviewed. Constitutional: Appearance: She is well-developed. HENT: Head: Normocephalic and atraumatic. Right Ear: External ear normal. Left Ear: External ear normal. Nose: Nose normal. Eyes: Conjunctiva/sclera: Conjunctivae normal. Neck: Thyroid: No thyromegaly. Cardiovascular: Rate and Rhythm: Normal rate and regular rhythm. Pulses: Normal pulses. Heart sounds: Normal heart sounds. No murmur heard. No friction rub. No gallop. Pulmonary: Effort: Pulmonary effort is normal. Breath sounds: Normal breath sounds. Abdominal: General: Bowel sounds are normal. There is no distension. Palpations: Abdomen is soft. There is no mass. Tenderness: There is no abdominal tenderness. Musculoskeletal: General: No deformity. Normal range of motion. Lymphadenopathy: Cervical: No cervical adenopathy. Skin: General: Skin is warm and dry. Coloration: Skin is not jaundiced or pale. Findings: No rash. Neurological: General: No focal deficit present. Mental Status: She is alert and oriented to person, place, and time. Cranial Nerves: No cranial nerve deficit. Sensory: No sensory deficit. Motor: No abnormal muscle tone. Coordination: Coordination normal. Deep Tendon Reflexes: Reflexes normal. Psychiatric: Attention and Perception: Attention and perception normal. Mood and Affect: Mood and affect normal. Speech: Speech normal. Behavior: Behavior normal. Thought Content: Thought content normal. Cognition and Memory: Cognition and memory normal. Judgment: Judgment normal. Component Latest Ref Rng AND Units 04/13/2019 04/08/2020 NA 136 - 145 mmol/L 138 139 K 3.5 - 5.1 mmol/L 4.0 4.0 Chloride 98 - 107 MEQ/L 105 107 CO2 21 - 32 MEQ/L 29.0 30.0 Glucose 74 - 106 MG/DL 87 88 BUN 7 - 18 MG/DL 14 9 Creatinine 0.6 - 1.3 MG/DL 0.74 0.66 GFR 60 mL/MIN (more content not included)...[facility]12-20-2021 History of Present illness Narrative* Filiberto Benitez MD - 04/14/2021 3:34 PM EST This note was created using [employer]. Subjective Cecy Hong is a 60 year old female. HISTORY Cecy Hong is a 60 year old lady here for yearly exam and follow up appointment. Neck and knee pain have become quite a bit worse the past year. Accident from 2002 seems to causing issues now. Does stretches. Not severe at this time. Able to do normal activities. Got a new pillow and doing better. Was waking up with sharp pain worse at night than in the day. Vertigo runs in the family. Cannot lay flat without pillow with be below the level of her body. PAST MEDICAL HISTORY Diagnosis Date Benign paroxysmal positional vertigo 06/02/2006 Carpal tunnel syndrome Cochlear hearing loss Nov 2008 from cochlear hydrops (resolved; treated by Dr. 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 Gaxiola diagnosed Postmenopausal after 49 years old Symptomatic menopausal or female climacteric states 2008 Unspecified hypothyroidism Current Outpatient Medications Medication Sig levothyroxine (SYNTHROID) 88 mcg tablet Take 1 tablet by mouth daily before breakfast. turmeric root extract 500 mg cap Take 1 capsule by mouth twice daily. estradiol (ESTRACE) 0.01 % (0.1 mg/gram) vaginal cream Use fingertip amount nightly x 2 weeks, thenevery other night x 2 weeks, then 1-2x weekly for maintenance cholecalciferol (VITAMIN D3) 1,000 unit tab Take 1 tablet by mouth once daily. calcium carbonate 600 mg-cholecalciferol 200 units (CALCIUM 600 + D,3,) 600 mg(1,500mg) -200 unit tab Take 1 tablet by mouth once daily. Naproxen Sodium (ALEVE) 220 mg ORAL tablet Take 1 tablet by mouth twice daily as needed. hydrochlorothiazide 25 mg tablet Take 1 tablet by mouth once daily as needed. for vertigo flare up (Dr. Rubalcava) (Patient not taking: Reported on 04/14/2021 ) No current facility-administered medications for this visit. ALLERGIES Allergen Reactions Amoxicillin Rash Shellfish Vomiting shortness of breath FAMILY HISTORY Problem Relation Age of Onset Diabetes Mother Hypertension Mother Thyroid Mother Prostate Cancer Father Hypertension Father other (skin cancer) Father Part of ear removed; also several on arms Breast Cancer Paternal Aunt Cancer Maternal Uncle LUNG Thyroid Sister Thyroid Sister other (bladder cancer) Brother at 62 Breast Cancer Paternal Grandmother Social History Tobacco Use Smoking status: Never Smoker Smokeless tobacco: Never Used Substance Use Topics Alcohol use: Yes Comment: Socially Drug use: No Review of Systems Objective BP 118/72 Pulse 66 Resp 16 Wt 66.7 kg (147 lb) LMP 12/24/2009 BMI 24.46 kg/m Physical Exam Vitals reviewed. Constitutional: Appearance: She is well-developed. HENT: Head: Normocephalic and atraumatic. Right Ear: External ear normal. Left Ear: External ear normal. Nose: Nose normal. Eyes: Conjunctiva/sclera: Conjunctivae normal. Neck: Thyroid: No thyromegaly. Cardiovascular: Rate and Rhythm: Normal rate and regular rhythm. Pulses: Normal pulses. Heart sounds: Normal heart sounds. No murmur heard. No friction rub. No gallop. Pulmonary: Effort: Pulmonary effort is normal. Breath sounds: Normal breath sounds. Abdominal: General: Bowel sounds are normal. There is no distension. Palpations: Abdomen is soft. There is no mass. Tenderness: There is no abdominal tenderness. Musculoskeletal: General: No deformity. Normal range of motion. Lymphadenopathy: Cervical: No cervical adenopathy. Skin: General: Skin is warm and dry. Coloration: Skin is not jaundiced or pale. Findings: No rash. Neurological: General: No focal deficit present. Mental Status: She is alert and oriented to person, place, and time. Cranial Nerves: No cranial nerve deficit. Sensory: No sensory deficit. Motor: No abnormal muscle tone. Coordination: Coordination normal. Deep Tendon Reflexes: Reflexes normal. Psychiatric: Attention and Perception: Attention and perception normal. Mood and Affect: Mood and affect normal. Speech: Speech normal. Behavior: Behavior normal. Thought Content: Thought content normal. Cognition and Memory: Cognition and memory normal. Judgment: Judgment normal. Component Latest Ref Rng & Units 04/13/2019 04/08/2020 NA 136 - 145 mmol/L 138 139 K 3.5 - 5.1 mmol/L 4.0 4.0 Chloride 98 - 107 MEQ/L 105 107 CO2 21 - 32 MEQ/L 29.0 30.0 Glucose 74 - 106 MG/DL 87 88 BUN 7 - 18 MG/DL 14 9 Creatinine 0.6 - 1.3 MG/DL 0.74 0.66 GFR 60 mL/MIN 85 96 GFR AFR AMER 60 mL/MIN 103 117 Total Protein 6.4 - 8.2 gm/dL 7.6 7.3 Albumin 3.2 - 4.6 gm/dL 4.2 4.0 Calcium 8.5 - 10.1 mg/dL 8.8 8.5 Bili Total 0.2 - 1 mg/dL 0.70 0.70 AST 8 - 37 U/L 18 17 ALT (SGPT) 12 - 78 U/L 18 18 Alk Phos Total 45 - 117 U/L 74 73 WBC 4.0 - 11.0 K/uL 4.3 4.4 RBC 4.2 - 5.4 M/uL 4.82 4.71 HGB 12 - 16 g/dL 14.2 13.6 Hematocrit 37 - 47 % 42.1 MCV 80 - 100 fL 89.2 89.4 MCH 27 - 34 pG 29.5 28.9 MCHC 32 - 36 % 33.0 32.3 RDW-CV 11.7 - 15.0 % 12.5 RDW-SD 41.2 Platelet Count 150 - 379 k/uL 259 MPV 7.3 - 11.1 % 11.3 (A) 11.4 (A) HCT 39 - 55 % 43.0 Platelet 140 - 440 K/uL 241 Cholesterol, Total 200 mg/dL 248 (A) 241 (A) Triglyceride 150 mg/dL 127 199 (A) HDL CHOLESTEROL 40 - 60 mg/dL 77 (A) 67 (A) LDL Cholesterol 0 - 130 mg/dL 146 (A) 134 (A) VLDL Cholesterol 5 - 40 mg/dL 2.8 40 TC:HDL Ratio 3.22 LDL:HDL Ratio 1.90 TSH 0.2 - 5.6 IU/ml 1.48 1.70 VITAMIN D 31 - 80 ng/mL 43.0 48.3 Free T3 2.18 - 3.98 pg/mL 2.4 T4,FREE (DIRECT) 0.76 - 1.46 ng/dL 1.16 ASCVD 10 year risk is 3% Assessment and Plan Encounter Diagnosis ICD-10-CM 1. Routine medical exam Z00.00 COMP METABOLIC PANEL CBC LIPID PANEL BASIC VITAMIN D 25 HYDROXY TSH BLD T4 FREE/FREE THYROX T3 FREE BLD 2. Acquired hypothyroidism E03.9 TSH BLD T4 FREE/FREE THYROX T3 FREE BLD 3. Vitamin D deficiency E55.9 VITAMIN D 25 HYDROXY 4. Mixed hyperlipidemia E78.2 LIPID PANEL BASIC 5. Encounter for long-term current use of medication Z79.899 COMP METABOLIC PANEL CBC 6. Cervical neck pain with evidence of disc disease M50.90 Some pain into head; some going to either shouder and sometimes down arms. Monitor for now. Do stretching exercises. Patient here for yearly exam and follow [...] diet and regular exercise and adequate sleep. Noted that has to choose another PCP because of insurance but will see how things go over the next year and if able to switch back some day. Filiberto Benitez MD [facility] NotePatient Outreach ([facility]) CECY HONG ([id number]) 1960 F Date Time Provider Department 11/15/20 FILIBERTO BENITEZ [facility] During your visit today, we recorded the following information about you: Allergies As of Date: 11/15/2020 Noted Allergy Reaction AMOXICILLIN 02/26/2005 2 - Rash SHELLFISH 08/03/2006 11 - Vomiting Comments: shortness of breath Date Reviewed: 04/12/2020 Reviewed by: Khadra Luu LPN - Fully Assessed Visit Diagnosis:Encounter for screening mammogram for breast cancer [Z12.31] Order(s):[facility]CREEN[facility] [[id number]] Order #: [id number] FUTURE Prescriptions as of 11/18/2020 - levothyroxine (SYNTHROID) 88 mcg tablet Take 1 tablet by mouth daily before breakfast. - turmeric root extract 500 mg cap Take 1 capsule by mouth twice daily. - estradiol (ESTRACE) 0.01 % (0.1 mg/gram) vaginal cream Use fingertip amount nightly x 2 weeks, then every other night x 2 weeks, then 1-2x weekly for maintenance - cholecalciferol (VITAMIN D3) 1,000 unit tab Take 1 tablet by mouth once daily. - calcium carbonate 600 mg-cholecalciferol 200 units (CALCIUM 600 + D,3,) 600 mg(1,500mg) -200 unit tab Take 1 tablet by mouth once daily. - hydrochlorothiazide 25 mg tablet Take 1 tablet by mouth once daily as needed. for vertigo flare up (Dr. Rubalcava) - Naproxen Sodium (ALEVE) 220 mg ORAL tablet Take 1 tablet by mouth twice daily as needed. 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 [G56.20] Osteopenia [M85.80] 03/07/2013 Vitamin D deficiency [E55.9] 12/26/2013 Other decreased white blood cell count [D72.818]12/26/2013 Genital atrophy of female [N94.9] 08/11/2016 Dyspareunia due to medical condition in female *08/11/2016 Encounter Status:Closed by EPIC, PRODUSER on 11/18/20[facility] 04-30-2007 History of Past illness Narrative* Problem Noted Date Resolved Date MASS IN BREAST 04/30/2007 02/10/2011 Irregular menstrual cycle 2010 Overview: Irregular periods CTS (carpal tunnel syndrome) 05/2013 Overview: bilaterally; NCT done 07/05 documented as of this encounter (statuses as of 07/12/2021) [facility] Routine medical exam- Primary Routine general medical examination at a health care facility Acquired hypothyroidism Unspecified hypothyroidism Vitamin D deficiency Unspecified vitamin D deficiency Mixed hyperlipidemia Encounter for long-term current use of medication Cervical neck pain with evidence of disc disease Other and unspecified disc disorder of cervical region [facility] in this [facility] Diagnosis Onset Date Resolution Status Dense breast tissue acute Family history of breast cancer acute Health care maintenance acut e Hyperlipidemia chronic Hypothyroidism chronic [facility] Work Phone: Evaluation noteNo assessment information available [facility] Work Phone: Evaluation note* Diagnosis Onset Date Resolution Status Cough acute Sinusitis, acute acute Health care maintenance acut e Osteopenia acute Hyperlipidemia chronic Hypothyroidism chronic [facility] Work Phone: Evaluation note* Diagnosis Onset Date Resolution Status Family history of first degr ee relative with bicuspid aortic valve acute Health care maintenance acut e Hyperlipidemia chronic Hypothyroidism chronic Osteopenia chronic [facility] Work Phone: Evaluation note* Diagnosis Onset Date Resolution Status URI (upper respiratory infection) acute Family history of breast cancer acute Dyspareunia chronic Encounter for routine gynecological examination noneactive [facility] Work Phone: Hospital course Narrative No data available for this section [facility] Summary Purpose Family History No Family History Records Found Relationship Condition Age at Onset Recorded Date/T kathy mother Diabetes mellitus Unknown Hypertension Unknown Arthritis Unknown Myocardial infarction 86 Disorder of thyroid Unknown father Malignant neoplasm Unknown grandmother Malignant neoplasm of breast Unknown aunt Malignant neoplasm of breast Unknown Not Specified Malignant neoplasm of ovary Unknown sister Disorder of thyroid Unknown brother Malignant neoplasm of urinary bladder Unk nown Relationship Condition Age at Onset Recorded Date/T kathy mother Diabetes mellitus Unknown Hypertension Unknown Arthritis Unknown Myocardial infarction 86 Disorder of thyroid Unknown father Malignant neoplasm Unknown grandmother Malignant neoplasm of breast Unknown aunt Malignant neoplasm of breast Unknown Not Specified Malignant neoplasm of ovary Unknown sister Disorder of thyroid Unknown Thrombocythemia Unknown brother Malignant neoplasm of urinary bladder Unk nown Bicuspid aortic valve Unknown Advance Directives No Advanced Directives Records FoundNo Advanced Directives Records FoundNo Advanced Directives Records Found Chief Complaint and Reason for Visit Chief Complaint 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 NEW PRIMARY CARE- NPP MAILED Reason for Visit Dense breast tissue Family history of breast cancer Health care maintenance Hyperlipidemia Hypothyroidism Chief Complaint SCREENING Chief Complaint SCREENING COUGH/CONGESTION/SORE THROAT YEARLY E ORDERS Reason for Visit Cough Sinusitis, acute Health care maintenance Osteopenia Hyperlipidemia Hypothyroidism Chief Complaint SCREENING YEARLY Reason for Visit Family history of fi rst degree relative with bicuspid aortic valve Health care maintenance Hyperlipidemia Hypothyroidism Osteopenia Chief Complaint SCREENING YEARLY Family history of other congenital malformations, Reason for Visit Family history of fi rst degree relative with bicuspid aortic valve Health care maintenance Hyperlipidemia Hypothyroidism Osteopenia Chief Complaint COUGH/CONGESTION/GARDINER 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 Reason for Visit URI (upper respirato ry infection) Family history of breast cancer Dyspareunia Encounter for routine gynecological examination Additional Source Comments Source Comments (unrecognize d section and content) In the event this informatio n is protected by the Federal Confidentiality of Alcohol and Drug Abuse Patient Records regulations: The Federal rules restrict any use of the information to criminally investigate or prosecute any alcohol or drug abuse patient.[facility] Reason for Visit (unrecogniz ed section and content) Reason Comments Yearly Exam Care Teams (unrecognized sec tion and content) 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 Filiberto Benitez MD Family Provider Active Dr. Juanita Anderson MD Primary Care Provider Active Team Status: Inactive Member Role Status Dates Dr. Juanita Anderson MD Primary Care Jona mccracken, Attending Provider, Referring Provider Active Team Status: Inactive Member Role Status Dates Dr. Juanita Anderson MD Primary Care Provider Active Dr. Jeanne Barrios MD Attending Provider, Referr ing Provider Active Team Status: Active Member Role Status Dates Dr. Juanita Anderson MD Primary Care Provider Active Dr. Celeste Martinez MD Attending Provider Active Team Status: Inactive Member Role Status Dates Dr. Juanita Anderson MD Primary Care Provider, Refer ring Provider Active Dr. Jeanne Barrios MD Attending Provider Active Team Status: Inactive Member Role Status Dates Dr. Juanita Anderson MD Primary Care Provider, Refer ring Provider Active Leonardo Carlos TURPENTINE FARMER, TURPENTINE FARMER-C Attending Provider Active Team Status: Active Member Role Status Dates Dr. Juanita Anderson MD Primary Care Provider Active Dr. Jeanne Barrios MD Attending Provider Active Team Status: Inactive Member Role Status Dates Dr. Juanita Anderson MD Primary Care Provider Active Dr. Jeanne Barrios MD Attending Provider Active INFORMATION SOURCE (unrecogn ized section and content) DATE CREATED AUTHOR 07/12/2021 [facility] DATE CREATED AUTHOR AUTHOR'S ORGANIZ ATION 03/16/2022 [facility] DATE CREATED AUTHOR AUTHOR'S ORGANIZ ATION 08/30/2024 [facility] Goals (unrecognized section and content) Goals may be documented in a n alternate sectionGoals may be documented in an alternate section No data available for this sectionGoals may be documented in an alternate sectionGoals may be documented in an alternate sectionGoals may be documented in an alternate sectionGoals may be documented in an alternate sectionGoals may be documented in an alternate section Care Team (unrecognized sect ion and content) Care Team Personnel Name: JUANITA ANDERSON MD Member Role: Primary Care Physician Address: Address: [address] [place] [address] [place] [address]- Care Team Related Persons Name: HALLILLIAM WARD Address: [address] [place] [address] FOR RECORDS PERTAINING TO PATIENTS WHO ARE OR HAVE BEEN ENROLLED IN A CHEMICAL DEPENDENCY/SUBSTANCEABUSE PROGRAM, SOME INFORMATION MAY BE OMITTED. This clinical summary was aggregated from multiple sources. Caution should be exercised in using it in the provision of clinical care. This summary normalizes information from multiple sources, and as a consequence, information in this document may materially change the coding, format and clinical context of patient data. In addition, data may be omitted in some cases. CLINICAL DECISIONS SHOULD BE BASED ON THE PRIMARY CLINICAL RECORDS. [facility] [employer] provides no warranty or guarantee of the accuracy or completeness of information in this document.
[2024-10-13 12:37] LABS: Absolute Lymphocyte Count 1.52 X10^3/uL (0.83-4.51); Absolute Neutrophil Count 2.8 X10^3/uL (2.0-7.7); Basophil# 0.07 X10^3/uL; Basophil% 1.4 % (0-1); Eosinophil# 0.14 X10^3/uL; Eosinophils% 2.8 % (0-5); Hematocrit 41.7 % (37-47); Hemoglobin 13.7 g/dL (12.0-15.0); Lymphocyte # 1.52 X10^3/ul (0.83-4.51); Lymphocyte % 30.2 % (19-41); Mean Corp Hgb Conc 32.9 g/dL (32-36); Mean Corpuscular Hgb 29.4 pg (27.0-32.0); Mean Corpuscular Volume 89.5 fL (81-99); Mean Platelet Vol. 11.7 fl (6.2-12.0); Monocyte# 0.43 X10^3/uL; Monocyte% 8.5 % (0-10); NRBC Flagged by Analyzer 0 % (0-5); Neutrophil # 2.83 X10^3/uL (2.7-7.7); Neutrophil % 56.3 % (47-70); Platelet Count 245 K/mm3 (150-450); RBC Distribution Width CV 12.9 % (11.6-14.6); RBC Distribution Width SD 42.3 fl (35.1-43.9); Red Blood Count 4.66 M/mm3 (4.2-5.4)
[2024-10-13 15:54] LABS: ALB/GLOB Ratio 1.7 RATIO (0.9-2.4); AST(SGOT) 23 U/L (<=31); Alanine Aminotransfer ALT/SGPT 15 U/L (<=34); Albumin, Serum 4.5 g/dL (3.4-4.8); Alkaline Phosphatase 80 U/L (35-104); Anion Gap 12 (5-15); BUN 13 mg/dL (4-19); BUN/Creat Ratio 19.2 RATIO (10-20); Calcium,Total 9.2 mg/dL (7.6-11.0); Carbon Dioxide 24.5 mmol/L (21.0-32.0); Chloride 102 mmol/L (98-108); Cholesterol 228 mg/dL (<=200); EST Glomerular Filtration Rate 97 (>60); Globulin 2.7 g/dL (2.2-4.2); Glucose 98 mg/dL (70-99); High Density Lipoprotein 68 mg/dL; Low Density Lipoprotein Calc. 140 mg/dL; Potassium 4.4 mmol/L (3.3-5.1); Protein, Total 7.2 g/dL (5.9-8.4); Sodium Level 138 mmol/L (133-145); Total Bilirubin 0.63 mg/dL (0.00-1.30); Triglycerides 103 mg/dL; Very Low Density Lipoprotein 21 mg/dL (5-40); Vitamin D,25 Hydroxy 64.5 ng/mL (30-100); cholesterol:hdl ratio screen 3.36
== END | disposition home or self-care (01) ==
LOC: BIMLAB 08:52
PROVIDERS: PCP Internal Medicine; Referring Provider Internal Medicine; Visit Provider Internal Medicine
DX: Z01.84 Encounter for antibody response examination (principal); E78.2 Mixed hyperlipidemia; E03.9 Hypothyroidism, unspecified; M85.80 Other specified disorders of bone density and structure, unspecified site
CPT/HCPCS: 36415; 80053; 80061; 82306; 84443; 85025; 86765

== ENCOUNTER → 2024-10-17 | Outpatient (CLI) | payer OTHER, SELFPAY ==
--- NOTE | 2024-10-17 11:05 | RAD_ITS ---
PROCEDURE: KNEE 3 VIEWS 10/17/2024 REASON FOR EXAM: RIGHT KNEE PAIN TECHNIQUE: KNEE 3 VIEWS COMPARISON: None FINDINGS: No acute fracture or dislocations. Mild degenerative changes of the right knee. Minimal joint effusion. Mild soft tissue edema. No radiographic foreign body. RAD/Knee 3 Views IMPRESSION: No acute fracture or dislocations. Mild degenerative changes of the knee. Mil d joint effusion. Mild soft tissue edema. Reading Location: [id number]
--- OUTSIDE RECORDS SUMMARY | 2024-10-17 21:48 | XMS RPT_ITS | CCD ---
Author Organization [facility] Care Team Providers Care Critical Care Registered Nurse Name Role Phone Juanita Anderson MD Primary Care Provider [phone] Dr. Filiberto Benitez Primary Care Provider Dr. Filiberto Benitez Referring Provider Farhana [employer], [employer] Shannan Attending Provider Cammy Bonilla Attending Provider Unavailable Dr. Juanita Anderson Attending Provider [phone] JUANITA ANDERSON MD Primary Care Physician FLOR WALLACE, DR. CARRANZA Attending UnavailJUANITA Sanford MD Primary Care Unavailab Dr. Juanita Saha Primary Care Provider Dr. Juanita Anderson Referring Provider [phone] Magy [employer], [employer] Deepa Bundy Attending Provider Dr. Juanita Anderson Attending Provider [phone] Dr. Juanita Anderson Primary Care Provider Dr. Juanita Anderson Attending Provider [phone] Dr. Juanita Anderson Referring Provider [phone] Dr. Celeste Martinez Attending Provider [phone] Dr. Juanita Anderson Primary Care Provider [phone] Dr. Juanita Anderson Referring Provider [phone] Breanna [employer], [employer] Leonardo Carreon Attending Provider Dr. Jeanne Barrios Attending Provider [phone] Justin WAGNER, Dr. Grant Primary Care Provider Justin WAGNER, Dr. Grant Referring Provider [phone] Denis WAGNER, Dr. Angel Attending Provider Justin WAGNER, Dr. Grant Attending Provider [phone] Oleghe, Efewongbe Referring Unavailable Oleghe, Efewongbe Primary Care Unavailable Jeanne Barrios Attending Unavailable Oleghe, Efewongbe Primary Care Unavailable Jeanne Barrios Referring Unavailable Jeanne Barrios Attending Unavailable Oleghe, Efewongbe Referring Unavailable Oleghe, Efewongbe Attending Unavailable Oleghe, Efewongbe Primary Care Unavailable Oleghe, Efewongbe Referring Unavailable Oleghe, Efewongbe Attending Unavailable Oleghe, Efewongbe Primary Care Unavailable Allergies Allergy Classification Reported Allergen(s) Allergy Type Date of Onset Reaction(s) Facility (10 sources) Amoxicillin; Translations: [amoxicillin] Drug Allergy 5 Rash [facility] Work Phone: (2 sources) Shellfish; Translations: [Shellfish] Propensity to adverse reactions 7 Vomiting [facility] Work Phone: (9 sources) Shellfish; Translations: [shellfish derived] Allergy to substance 2 Other [facility] (1 source) Amoxicillin Drug Allergy 5 [facility] Repository Medications Current Medications Medication Drug Class(es) Dates Sig (Normalized) Sig (Original) Calcium (1 source) Phosphate Binder, Calcium Start: 03-09-2022 take 1 tablet by mouth twice daily Calcium 600+D oral tablet Dose = 1 tab(s), Oral, BID, 0 Refill(s) Start Date: 03/09/22 Status: Ordered calcium carbonate 1000 mg chewable tablet (17 sources) Start: 10-11-2023 take 1 tablet by mouth once daily Calcium Carbonate 400 mg calcium (1,000 mg) tablet,chewable Active 400 mg PO DAILY October 11, 2023 12:00am Start: 05-15-2021 End: 02-17-2022 take 1 tablet by mouth once daily Calcium Carbonate (Calcium 600) 600 mg calcium (1,500 mg) tablet Discontinued 600 mg PO DAILY May 15, 2021 1:00am February 17, 2022 2:17pm Start: 09-14-2017 End: 05-15-2021 take 1 tablet by mouth twice daily Calcium Carbonate (Calcium 500) 500 mg calcium (1,250 mg) tablet Discontinued 500 mg PO TWICE A DAY September 14, 2017 12:00am May 15, 2021 10:34am calcium carbonate 1500 mg / cholecalciferol 800 unt oral tablet (12 sources) Vitamin D Start: 03-03-2023 Calcium Carbon ate-Vitamin D3 600 mg-20 mcg (800 unit) tablet Active 1 {tbl} PO DAILY March 03, 2023 1:00am Start: 03-03-2023 take 1 tablet by sánchez th once daily Calcium Carbonate-Vitamin D3 Active 1 TABLET PO DAILY March 03, 2023 1:00am Start: 02-17-2022 End: 03-03-2023 Calcium Carbonate-Vitamin D3 (Calcium 600 With Vitamin D3) 600 mg-12.5 mcg (500 unit) capsule Discontinued NMA PO February 17, 2022 12:00am March 03, 2023 10:53am Start: 12-26-2013 take 1 tablet by sánchez th once daily calcium carbonate 600 mg-cholecalciferol 200 units (CALCIUM 600 + D,3,) 600 mg(1,500mg) -200 unit tab Take 1 tablet by mouth once daily. 0 12/26/2013 Active Comment on above: Take 1 tablet by sánchez th once daily. cholecalciferol 0.025 mg oral capsule (11 sources) Vitamin D Start: 03-03-20 take 1 capsule by mouth once daily Cholecalciferol (Vitamin D3) (Vitamin D3) 25 mcg (1,000 unit) capsule Active 25 ug PO DAILY March 03, 2023 1:00am Start: 02-17-2022 cholecalcifero l (vitamin D3) 4,000 unit capsule Active 1000 UNIT PO daily February 17, 2022 1:17pm Start: 02-17-2022 End: 03-03-2023 take 1 capsule by mouth once daily Cholecalciferol (Vitamin D3) 100 mcg (4,000 unit) capsule Discontinued 1000 U PO daily February 17, 2022 2:17pm March 03, 2023 10:53am Start: 09-14-2017 End: 02-17-2022 take 1 capsule [...] 1 tablet by sánchez th once daily. estradiol 0.1 mg/ml vaginal cream (20 sources) Estrogen Start: 03-09-2022 Estrace Vaginal 0.1 mg/g vaginal cream 1 gram(s), Vaginal, 3x/Wk, 0 Refill(s) Start Date: 03/09/22 Status: Ordered Start: 05-31-2017 End: 08-25-2024 Estradiol (Estrace) 0.01 % ( 0.1 mg/gram) cream Active 1 NMA VAGINAL .COMPLEX 42.5 August 25, 2024 3:12pm 1 appful vaginally use 1-2g 1-3x weekly for maintenance; Start: 05-31-2017 End: 08-16-2023 Estradiol (Estrace) 0.01 [...] 2 weeks, then 1-2x weekly for maintenance levothyroxine sodium 0.088 mg oral tablet (20 sources) l-Thyroxine Start: 03-09-2022 Synthroid 88 mcg (0.088 mg) oral tablet 0 Refill(s) Start Date: 03/09/22 Status: Ordered Start: 09-14-2017 End: 07-25-2024 take 1 tablet by mouth once daily Levothyroxine 88 mcg tablet Active 88 ug PO daily July 25, 2024 12:30pm Start: 01-31-2013 End: 09-14-2017 take 1 tablet by mouth once daily Levothyroxine 75 MCG tablet Discontinued 75 ug PO DAILY January 31, 2013 12:00am September 14, 2017 2:02pm Comment on above: Take 1 tablet by sánchez th daily before breakfast. Turmeric Root Extract (8 sources) Start: 04-24-2021 take 500 mg by mouth twice daily Turmeric Root Extract Active 500 MG PO TWICE A DAY April 24, 2021 2:56pm Start: 04-24-2021 End: 02-10-2022 take 1 capsule by mouth twice daily Turmeric Root Extract 500 mg capsule Discontinued 500 mg PO TWICE A DAY April 24, 2021 [...] Sig (Original) azithromycin 250 mg oral tablet (3 sources) Macrolide Antimicrobial Start: 04-26-2023 End: 08-16-2023 Azithromycin (Zithromax Z-Ayaan) 250 mg tablet Discontinued 0 PO .COMPLEX April 26, 2023 1:00am Melanie 22nd, 2024 3:01pm For 250 mg dose pack: take 500 mg today (day 1), then 250 mg for 4 days (days 2-5) PO benzonatate 200 mg oral capsule (6 sources) Non-narcotic Antitussive Start: 02-10-2022 End: 02-17-2022 Benzonatate 200 mg capsule Discontinued 200 mg PO 2 to 3 times per day as needed for cough February 10, 2022 12:00am February 17, 2022 2:17pm cholecalciferol (vitamin D3) 4,000 unit capsule (8 [...] 13, 2017 11:00pm February 17, 2022 1:18pm Cholecalciferol (Vitamin D3) 4,000 unit capsule (1 source) Start: 09-14-2017 End: 02-17-2022 take 1 capsule by mouth once daily Cholecalciferol (Vitamin D3) 4,000 unit capsule Discontinued 4000 U PO daily September 14, 2017 12:00am February 17, 2022 2:18pm doxycycline hyclate 100 mg oral tablet (6 sources) Tetracycline-cla ss Drug Start: 02-10-2022 End: 02-20-2022 take 1 tablet by mouth twice daily Doxycycline Hyclate 100 mg tablet Discontinued 100 mg PO TWICE A DAY 12 02February 10, 2022 12:00am February 19, 2022 12:00am February 20, 2022 12:04am hydroCHLOROthiazide 25 mg oral tablet (1 source) Thiazide Diuretic Start: 11-23-2013 take 1 tablet by mouth once daily as needed hydrochlorothiazide 25 mg tablet Take 1 tablet by mouth once daily as needed. for vertigo flare up (Dr. Rubalcava) 30 tablet 2 11/23/2013 Active Comment on above: Take 1 tablet by sánchez th once daily as needed. for vertigo flare up (Dr. Rubalcava) naproxen sodium 220 mg oral tablet (1 source) Nonsteroidal Anti-inflammator y Drug Start: 08-08-2010 take 1 tablet by [...] 12-26-2013 12-26-2013 Chronic Disorders of lipid metabolism (15 sources) Mixed hyperlipidemia; Translations: [Mixed hyperlipidemia] Onset: 10-13-2024 Chronic Headache; including migraine (2 sources) Tension-type headache; Translations: [Tension-type headache, unspecified, not intractable] Onset: 06-02-2006 06-02-2006 Chronic Nonmalignant breast conditions (1 source) Fibrosclerosis of breast; Translations: [Fibrosclerosis of unspecified breast] 02-26-2005 Chronic Nonspecific chest pain (8 sources) Chest pain; Translations: [Chest pain, unspecified] 01-31-2013 Episodic Nutritional deficiencies (2 sources) Vitamin D deficiency; Translations: [Vitamin D deficiency, unspecified] Onset: 12-26-2013 Chronic Other aftercare (1 source) Patient encounter status; Translations: [Other penitentiary (current) drug therapy] Episodic Other bone disease and musculoskeletal deformities (9 sources) Osteopenia; Translations: [Other specified disorders of bone density and structure, unspecified site] Onset: 03-07-2013 03-07-2013 Episodic Other bone disease and musculoskeletal deformities (5 sources) Other specified disorders of bone density and structure, unspecified site; Translations: [Disorder of bone and cartilage, unspecified] Onset: 10-13-2024 Episodic Other female genital disorders (1 source) 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; Translations: [Other specified dyspareunia] Onset: 08-11-2016 08-11-2016 Chronic Other female genital disorders (11 sources) Dyspareunia; Translations: [Dyspareunia] 08-06-2022 Chronic Comment on above: thinning skin of per ineum, estrace Other lower respiratory disease (8 sources) H/O: pneumonia; Translations: [Personal history of pneumonia (recurrent)] 05-15-2021 Episodic Other lower respiratory disease (7 sources) Cough; Translations: [Cough] Episodic Other nervous system disorders (1 source) Ulnar neuropathy; 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 ulnar nerve, unspecified upper limb] 04-21-2021 Chronic Other nervous system disorders (8 sources) Carpal tunnel syndrome; Translations: [Carpal tunnel syndrome, unspecified upper limb] 05-15-2021 Chronic Other non-epithelial cancer of skin (8 sources) Basal cell carcinoma of skin; Translations: [Basal cell carcinoma of skin, unspecified] 05-15-2021 Episodic Other non-traumatic joint disorders (2 sources) Pain in right knee; Translations: [Right knee pain] Onset: 10-13-2024 10-13-2024 Episodic Other screening for suspected conditions (not mental disorders or infectious disease) (10 sources) Breast finding ; Translations: [Inconclusive mammogram] Onset: 08-25-2024 Episodic Other upper respiratory infections (12 sources) Acute sinusitis; Translations: [Acute sinusitis, unspecified] Episodic Residual codes; unclassified (9 sources) Family history of breast cancer; Translations: [Family history of malignant neoplasm of breast] 08-06-2022 Episodic Comment on above: Paternal grandmother and aunt, empower screening negative. Residual codes; unclassified (8 sources) Family history of prostate cancer; Translations: [Family history of malignant neoplasm of prostate] 04-24-2021 Episodic Residual codes; unclassified (3 sources) Family history of malignant neoplasm of breast; Translations: [Family history of malignant neoplasm of breast] Episodic Residual codes; unclassified (5 sources) FH: Congenital heart disease; Translations: [Family [...] Spondylosis; intervertebral disc disorders; other back problems (9 sources) Sciatica; Translations: [Sciatica, unspecified side] Onset: 03-03-2005 03-03-2005 Episodic Thyroid disorders (16 sources) Acquired hypothyroidism; Translations: [Hypothyroidism, unspecified] Onset: 10-13-2024 Chronic Past or Other Problems Problem Classification [...] Test Name Value Interpretation Reference Range Facility Rubeola IgG Abon 10-14-2024 RUBEOLA Ab, IgG 73.0 AU/mL High Immune >16.4 [facility] Comment on above: Result Comment: Clie nt Requested Flag Negative <13.5 Equivocal 13.5 - 16.4 Positive >16.4 Presence of antibodies to Rubeola is presumptive evidence of immunity except when acute infection is suspected. Performed at: - [facility] [id number] Dishwasher Busser: Zbigniew Lopez PhD, Phone: [phone] Performed By: #### L 501.7590, L500.4100, L506.1001, L100.0100, L500.4050, L3100.3300 #### [facility] [address] [place], [address] CBC W/Diff, Automatedon 06-2 0-2024 Absolute Lymph 1.52 X10 3/uL Normal 0.83-4.51 [facility] Comment on above: Performed By: #### L [id number], L500.4100, L506.1001, L100.0100, L500.4050, L3100.3300 #### [facility] [address] [place], [address] Absolute Neut 2.8 X10 3/uL Normal 2.0-7.7 [facility] Comment on above: Performed By: #### L 501.9520, L500.4100, L506.1001, L100.0100, L500.4050, L3100.3300 #### [facility] [address] [place], [address] Basophils/100 WBC (Bld) 1.4 % High 0-1 [facility] Comment on above: Performed By: #### L 501.9520, L500.4100, L506.1001, L100.0100, L500.4050, L3100.3300 #### [facility] [address] [place], [address] Eosinophils/100 WBC (Bld) 2.8 % Normal 0-5 [facility] Comment on above: Performed By: #### L 501.9520, L500.4100, L506.1001, L100.0100, L500.4050, L3100.3300 #### [facility] [address] [place], [address] Erythrocyte distribution width (RBC) [Ratio] 12.9 % Normal 11.6-14.6 [facility] Comment on above: Performed By: #### L 501.9520, L500.4100, L506.1001, L100.0100, L500.4050, L3100.3300 #### [facility] [address] [place], [address] Hematocrit (Bld) [Volume fraction] 41.7 % Normal 37-47 [facility] Comment on above: Performed By: #### L 501.9520, L500.4100, L506.1001, L100.0100, L500.4050, L3100.3300 #### [facility] [address] [place], [address] Hemoglobin (Bld) [Mass/Vol] 13.7 g/dL Normal 12.0-15.0 [facility] Comment on above: Performed By: #### L 501.9520, L500.4100, L506.1001, L100.0100, L500.4050, L3100.3300 #### [facility] [address] [place], [address] IG% 0.800 Normal 0.0-0.9 [facility] Comment on above: Result Comment: IG% - Immature Granulocytes (promyelocytes, myelocytes and metamyelocytes) > 1% indicates that a LEFT SHIFT is Present. Performed By: #### L 501.9520, L500.4100, L506.1001, L100.0100, L500.4050, L3100.3300 #### [facility] [address] [facility] [place], [address] Lymphocytes/100 WBC (Bld) 30.2 % Normal 19-41 [facility] Comment on above: Performed By: #### L 501.9520, L500.4100, L506.1001, L100.0100, L500.4050, L3100.3300 #### [facility] [address] [place], [address] MCH (RBC) [Entitic mass] 29.4 pg Normal 27.0-32.0 [facility] Comment on above: Performed By: #### L 501.9520, L500.4100, L506.1001, L100.0100, L500.4050, L3100.3300 #### [facility] [address] [place], [address] MCHC (RBC) [Mass/Vol] 32.9 g/dL Normal 32-36 [facility] Comment on above: Performed By: #### L 501.9520, L500.4100, L506.1001, L100.0100, L500.4050, L3100.3300 #### [facility] [address] [place], [address] MCV (RBC) [Entitic vol] 89.5 fL Normal 81-99 [facility] Comment on above: Performed By: #### L 501.9520, L500.4100, L506.1001, L100.0100, L500.4050, L3100.3300 #### [facility] [address] [place], [address] Monocytes/100 WBC (Bld) 8.5 % Normal 0-10 [facility] Comment on above: Performed By: #### L 501.9520, L500.4100, L506.1001, L100.0100, L500.4050, L3100.3300 #### [facility] [address] [place], [address] Neutrophils/100 WBC (Bld) 56.3 % Normal 47-70 [facility] Comment on above: Performed By: #### L 501.9520, L500.4100, L506.1001, L100.0100, L500.4050, L3100.3300 #### [facility] [address] [place], [address] Nucleated RBC (Bld) [#/Vol] 0 10*3/uL Normal 0-5 [facility] Comment on above: Performed By: #### L 501.9520, L500.4100, L506.1001, L100.0100, L500.4050, L3100.3300 #### [facility] [address] [place], [address] Platelet mean volume (Bld) [Entitic vol] 11.7 fL Normal 6.2-12.0 [facility] Comment on above: Performed By: #### L 501.9520, L500.4100, L506.1001, L100.0100, L500.4050, L3100.3300 #### [facility] [address] [place], [address] Platelets (Bld) [#/Vol] 245 10*3/uL Normal 150-450 [facility] Comment on above: Performed By: #### L 501.9520, L500.4100, L506.1001, L100.0100, L500.4050, L3100.3300 #### [facility] [address] [place], [address] RBC (Bld) [#/Vol] 4.66 10*6/uL Normal 4.2-5.4 [facility] Comment on above: Performed By: #### L 501.9520, L500.4100, L506.1001, L100.0100, L500.4050, L3100.3300 #### [facility] [address] [place], [address] RDW SD 42.3 fl Normal 35.1-43.9 [facility] Comment on above: Performed By: #### L 501.9520, L500.4100, L506.1001, L100.0100, L500.4050, L3100.3300 #### [facility] [address] [place], [address] WBC (Bld) [#/Vol] 5.0 10*3/uL Normal 4.4-11.0 [facility] Comment on above: Performed By: #### L 501.9520, L500.4100, L506.1001, L100.0100, L500.4050, L3100.3300 #### [facility] [address] [place], [address] Comprehensive Metabolic Prof ilon 10-13-2024 Albumin [Mass/Vol] 4.5 g/dL Normal 3.4-4.8 [facility] Comment on above: Performed By: #### L 501.9520, L500.4100, L506.1001, L100.0100, L500.4050, L3100.3300 #### [facility] [address] [place], [address] Albumin/Globulin [Mass ratio] 1.7 {ratio} Normal 0.9-2.4 [facility] Comment on above: Performed By: #### L 501.9520, L500.4100, L506.1001, L100.0100, L500.4050, L3100.3300 #### [facility] [address] [place], [address] ALK PHOS 80 U/L Normal 35-104 [facility] Comment on above: Performed By: #### L 501.9520, L500.4100, L506.1001, L100.0100, L500.4050, L3100.3300 #### [facility] [address] [place], [address] ALT [Catalytic activity/Vol] 15 U/L Normal <=34 [facility] Comment on above: Performed By: #### L 501.9520, L500.4100, L506.1001, L100.0100, L500.4050, L3100.3300 #### [facility] [address] [place], [address] AST [Catalytic activity/Vol] 23 U/L Normal <=31 [facility] Comment on above: Performed By: #### L 501.9520, L500.4100, L506.1001, L100.0100, L500.4050, L3100.3300 #### [facility] [address] [place], [address] Bilirubin [Mass/Vol] 0.63 mg/dL Normal 0.00-1.30 [facility] Comment on above: Performed By: #### L 501.9520, L500.4100, L506.1001, L100.0100, L500.4050, L3100.3300 #### [facility] [address] [place], [address] BUN/CRE 19.2 RATIO Normal 10-20 [facility] Comment on above: Performed By: #### L 501.9520, L500.4100, L506.1001, L100.0100, L500.4050, L3100.3300 #### [facility] [address] [place], [address] Calcium [Mass/Vol] 9.2 mg/dL Normal 7.6-11.0 [facility] Comment on above: Performed By: #### L 501.9520, L500.4100, L506.1001, L100.0100, L500.4050, L3100.3300 #### [facility] [address] [place], [address] Chloride [Moles/Vol] 102 mmol/L Normal 98-108 [facility] Comment on above: Performed By: #### L 501.9520, L500.4100, L506.1001, L100.0100, L500.4050, L3100.3300 #### [facility] [address] [place], [address] CO2 [Moles/Vol] 24.5 mmol/L Normal 21.0-32.0 [facility] Comment on above: Performed By: #### L 501.9520, L500.4100, L506.1001, L100.0100, L500.4050, L3100.3300 #### [facility] [address] [place], [address] Creatinine [Mass/Vol] 0.70 mg/dL Normal 0.70-1.20 [facility] Comment on above: Performed By: #### L 501.9520, L500.4100, L506.1001, L100.0100, L500.4050, L3100.3300 #### [facility] [address] [place], [address] GAP 12 Normal 5-15 [facility] Comment on above: Performed By: #### L 501.9520, L500.4100, L506.1001, L100.0100, L500.4050, L3100.3300 #### [facility] [address] [place], [address] GFR/1.73 sq M.predicted among non-blacks MDRD (S/P/Bld) [Vol rate/Area] 97 mL/min/{1.73_m2} Normal >60 [facility] Comment on above: Result Comment: mL/m in/1.73m2 CKD-EPI Creatinine Equation (2020) Performed By: #### L 501.9520, L500.4100, L506.1001, L100.0100, L500.4050, L3100.3300 #### [facility] [address] [place], [address] Globulin (S) [Mass/Vol] 2.7 g/dL Normal 2.2-4.2 [facility] Comment on above: Performed By: #### L 501.9520, L500.4100, L506.1001, L100.0100, L500.4050, L3100.3300 #### [facility] [address] [place], [address] Glucose [Mass/Vol] 98 mg/dL Normal 70-99 [facility] Comment on above: Performed By: #### L 501.9520, L500.4100, L506.1001, L100.0100, L500.4050, L3100.3300 #### [facility] [address] [place], [address] Potassium [Moles/Vol] 4.4 mmol/L Normal 3.3-5.1 [facility] Comment on above: Performed By: #### L 501.9520, L500.4100, L506.1001, L100.0100, L500.4050, L3100.3300 #### [facility] [address] [place], [address] Sodium [Moles/Vol] 138 mmol/L Normal 133-145 [facility] Comment on above: Performed By: #### L 501.9520, L500.4100, L506.1001, L100.0100, L500.4050, L3100.3300 #### [facility] [address] [place], [address] T PROT 7.2 g/dL Normal 5.9-8.4 [facility] Comment on above: Performed By: #### L 501.9520, L500.4100, L506.1001, L100.0100, L500.4050, L3100.3300 #### [facility] [address] [place], [address] Urea nitrogen [Mass/Vol] 13 mg/dL Normal 4-19 [facility] Comment on above: Performed By: #### L 501.9520, L500.4100, L506.1001, L100.0100, L500.4050, L3100.3300 #### [facility] [address] [place], [address] Lipid Profileon 10-13-2024 CHOL:HDL 3.36 Normal [facility] Comment on above: Performed By: #### L 501.9520, L500.4100, L506.1001, L100.0100, L500.4050, L3100.3300 #### [facility] [address] [place], [address] Cholesterol [Mass/Vol] 228 mg/dL High <=200 [facility] Comment on above: Result Comment: Chol esterol level, Desirable <200 mg/dL Borderline high cholesterol 200-239 mg/dL High cholesterol >=240 mg/dL Recommendations of the NCEP Adult Treatment Panel for the following risk-cutoff thresholds for the [place] population. Performed By: #### L 501.9520, L500.4100, L506.1001, L100.0100, L500.4050, L3100.3300 #### [facility] [address] [place], [address] Cholesterol in HDL [Mass/Vol] 68 mg/dL Normal [facility] Comment on above: Result Comment: [place] onal Cholesterol Education Program (NCEP) guidelines: <40 mg/dL: Low HDL-cholesterol (major risk factor for CHD) >= 60 mg/dL: High HDL-cholesterol (negative risk factor for CHD) HDL-cholesterol is affected by a number of factors, e.g. smoking, exercise, hormones, sex and age. Performed By: #### L 501.9520, L500.4100, L506.1001, L100.0100, L500.4050, L3100.3300 #### [facility] [address] [place], [address] Cholesterol in LDL [Mass/Vol] 140 mg/dL Normal [facility] Comment on above: Result Comment: Bord lqrznp=954-089 mg/dL Higher Gslb=243 mg/dL or greater Performed By: #### L 501.9520, L500.4100, L506.1001, L100.0100, L500.4050, L3100.3300 #### [facility] [address] [place], [address] Cholesterol in VLDL [Mass/Vol] 21 mg/dL Normal 5-40 [facility] Comment on above: Performed By: #### L 501.9520, L500.4100, L506.1001, L100.0100, L500.4050, L3100.3300 #### [facility] [address] [place], [address] Triglyceride [Mass/Vol] 103 mg/dL Normal [facility] Comment on above: Result Comment: The drugs N-Acetylcysteine and Metamizole may falsely depress this assay. Normal range: <150 mg/dL Borderline High: 150-199 mg/dL High: 200-499 mg/dL Very High: >500 mg/dL Performed By: #### L 501.9520, L500.4100, L506.1001, L100.0100, L500.4050, L3100.3300 #### [facility] [address] [place], [address] Thyroid Stim Hormone (TSH)on 10-13-2024 TSH 1.610 uIU/mL Normal 0.300-4.200 [facility] Comment on above: Performed By: #### L 501.9520, L500.4100, L506.1001, L100.0100, L500.4050, L3100.3300 #### [facility] [address] 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 has bees Last PAP: 08/16/23 - normal History of abnormal PAP: Last mammogram: 02/09/24 - normal History of abnormal mammogram: Colon cancer screening: coloscopy 2021 Other preventative health care screenings: PCP Oleghe. Sahu 2023. Female Reproductive History Questions: metorrhagia: No, [...] or v (more content not included)... Normal [facility] Dexa Bone Density Studyon Dexa Bone Density Study [facility] [address] [place] [address] Dexa Bone Density Study MR#: [id number] Acct: [id number] Name: CECY HONG GIDEON Rep #: [id number] : 1960 F 63 From: Raheel eden MD PCP: Dr. Juanita Anderson MD Status: [facility] Study: Dexa Bone Density Study Date of Exam: 02/09/24 Exam# [id number] Ordering Dr: Jeanne Barrios [id number] STUDY: DUAL ENERGY X-RAY ABSORPTIOMETRY / DXA [...] Signed: Raheel Gomez MD at 13:25 EDT , CC: Dr. Juanita Anderson MD; Dr. 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 Juanita Anderson MD Status: REG CLI Study: SCRN MAMM (CAD)W/YISEL BILAT Date of Exam: 01/24 10/17 Exam# [id number] Ordering Dr: Jeanne Barrios [id number] MAMMOGRAPHY - BILATERAL SCREENING 3-D TOMOSYNTHESIS REASON [...] Juanita Anderson MD; Dr. 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 [facility] Comment on above: Criteria not met, HP V Genotype not performed.Performed at: [address] [id number] Director: Gwen Rosales MD, Phone: [phone] at: =[address] [id number] Director: Gwen Rosales MD, Phone: [phone] Cervical or vagninal specime n microscopic examination by cytology stain (reported asOrdered By: Jeanne Barrios on 08-16-2023 Cytology report Cyto stain Doc (Cvx/Vag) Comment . [facility] Comment on above: The Pap smear is [...] DNA Probe+sig amp Ql (Cvx) Negative Negative [facility] Comment on above: This nucleic acid am plification test detects fourteen high- risk HPV types (16,18,31,33,35,39,45,51,52,56,58,59,66,68)without differentiation. Laboratory - CytologyOrdered By: Jeanne Barrios on 08-16-2023 Bradder Cyto stain Nom (Cvx/Vag) [ID] Comment . [facility] Comment on above: Ann Patton, Cyto technologist (ASCP) Laboratory - Miscellaneous t estsOrdered By: Jeanne Barrios on 08-16-2023 Service comment (Unsp spec) [Interp] . . [facility] Thin prep Papanicolaou smear with manual screeningOrdered By: Jeanne Barrios on 08-16-2023 Thin prep Papanicolaou smear with manual screening Comment . [facility] Comment on above: NEGATIVE FOR INTRAEP ITHELIAL LESION OR MALIGNANCY. Thin prep Papanicolaou smear with manual screening TNP [facility] Comment on above: Test not performedTh e Thin Prep(R) Senior System Operator was unable to read this specimen.Therefore a manual review was performed. Absolute lymphocyte countOrd ered By: Juanita Anderson on 03-03-2023 Lymphocytes Auto (Unsp spec) [#/Vol] 1.32 10*3/uL 0.83-4.51 [facility] Basophil percentageOrdered B y: Juanita Anderson on 03-03-2023 Basophils/100 WBC (Bld) 1.4 % 0-1 [facility] Bilirubin [Mass/Vol] 0.70 mg/dL 0.20-1.00 [facility] Comment on above: For patients on eltr ombopag therapy, use of Dimension [place] TBIL is not recommended. Chloride [Moles/Vol] 103 mmol/L 98-107 [facility] Cholesterol [Mass/Vol] 244 mg/dL <200 [facility] Comment on above: <200 mg/dL Desirable 200-240 mg/dL Borderline >240 mg/dL High Risk Eosinophils/100 WBC (Bld) 1.9 % 0-5 [facility] Glucose [Mass/Vol] 97 mg/dL 74-106 [facility] Neutrophils (Bld) [#/Vol] 2.3 10*3/uL 2.0-7.7 [facility] Neutrophils/100 WBC (Bld) 55.6 % 47-70 [facility] Potassium [Moles/Vol] 4.1 mmol/L 3.5-5.1 [facility] Protein [Mass/Vol] 7.1 g/dL 6.4-8.2 [facility] Sodium [Moles/Vol] 135 mmol/L 136-145 [facility] Triglyceride [Mass/Vol] 82 mg/dL <199 [facility] Comment on above: The drugs N-Acetylcy steine and Metamizole may falsely depress this assay.Serum Triglycerides Reference Interval Normal <150 mg/dL Borderline high 150 - 199 mg/dL High 200 - 499 mg/dL Very High > or = 500 mg/dL WBC (Bld) [#/Vol] 4.2 10*3/uL 4.4-11.0 [facility] Blood erythrocytes count (nu mber/volume)Ordered By: Juanita Anderson on 03-03-2023 RBC (Bld) [#/Vol] 4.59 10*6/uL 4.2-5.4 [facility] Blood hemoglobin measurement (mass/volume)Ordered By: Juanita Anderson on 03-03-2023 Hemoglobin (Bld) [Mass/Vol] 13.4 g/dL 12.0-15.0 [facility] Blood lymphocytes/100 leukoc ytesOrdered By: Juanita Anderson on 03-03-2023 Lymphocytes/100 WBC (Bld) 31.7 % 19-41 [facility] Blood monocytes/100 leukocyt esOrdered By: Juaniat Anderson on 03-03-2023 Monocytes/100 WBC (Bld) 8.9 % 0-10 [facility] Blood platelet mean volumeOr dered By: Juanita Anderson on 03-03-2023 Platelet mean volume (Bld) [Entitic vol] 11.6 fL 6.2-12.0 [facility] Determination of erythrocyte mean corpuscular volume (MCV)Ordered By: Juanita Anderson on 03-03-2023 MCV (RBC) [Entitic vol] 91.1 fL 81-99 [facility] Hematocrit Auto (Bld) [Volum e fraction]Ordered By: Juanita Anderson on 03-03-2023 Hematocrit (Bld) [Volume fraction] 41.8 % 37-47 [facility] - Chemistry and C hemistry - challengeOrdered By: Juanita Anderson on 03-03-2023 ALP [Catalytic activity/Vol] 72 U/L 45-117 [facility] ALT [Catalytic activity/Vol] 17 U/L 13-56 [facility] CO2 [Moles/Vol] 29.0 mmol/L 21.0-32.0 [facility] Globulin (S) [Mass/Vol] 3.2 g/dL 2.2-4.2 [facility] Urea nitrogen/Creatinine [Mass ratio] 20.4 mg/mg 10-20 [facility] - Hematology and Cell countsOrdered By: Juanita Anderson on 03-03-2023 Erythrocyte distribution width (RBC) [Entitic vol] 43.7 fL 35.1-43.9 [facility] Erythrocyte distribution width (RBC) [Ratio] 13.0 % 11.6-14.6 [facility] Immature granulocytes/100 WBC (Bld) 0.500 % 0.0-0.9 [facility] Comment on above: IG% - Immature Granu locytes (promyelocytes, myelocytes and metamyelocytes) > 1% indicates that a LEFT SHIFT is Present. MCH (RBC) [Entitic mass] 29.2 pg 27.0-32.0 [facility] Nucleated RBC/100 WBC (Bld) [Ratio] 0 % 0-5 [facility] MCHC Auto (RBC) [Mass/Vol]Or dered By: Juanita Anderson on 03-03-2023 MCHC (RBC) [Mass/Vol] 32.1 g/dL 32-36 [facility] No Panel InformationOrdered By: Juanita Anderson on 03-03-2023 Estimated GFR (MDRD) Amer 121 mL/min >60 [facility] Comment on above: GFR Calc Estimated GFR (MDRD) Non-Af Amer 100 mL/min >60 [facility] Comment on above: Non- GFR Calc Thyroid Stimulating Hormone (TSH) 1.93 uIU/mL 0.358-3.74 [facility] Platelets bldOrdered By: Manav justinbianca Anderson on 03-03-2023 Platelets (Bld) [#/Vol] 239 10*3/uL 150-450 [facility] Serum or plasma albumin raine urement (mass/volume)Ordered By: Juanita Anderson on 03-03-2023 Albumin [Mass/Vol] 3.9 g/dL 3.2-5.0 [facility] Serum or plasma albumin/glob ulin mass ratioOrdered By: Juanita Anderson on 03-03-2023 Albumin/Globulin [Mass ratio] 1.2 {ratio} 0.9-2.4 [facility] Serum or plasma calcium raine urement (mass/volume)Ordered By: Juanita Anderson on 03-03-2023 Calcium [Mass/Vol] 8.7 mg/dL 8.5-10.1 [facility] Serum or plasma cholesterol in HDL measurement (mass/volume)Ordered By: Juanita Anderson on 03-03-2023 Cholesterol in HDL [Mass/Vol] 76 mg/dL >40 [facility] Comment on above: The drugs N-Acetylcy steine and Metamizole may falsely depress this assay. Reference Range HDL <40 mg/dL Low HDL Cholesterol HDL >or= 60 mg/dL High HDL Cholesterol Serum or plasma cholesterol in VLDL measurement (mass/volume)Ordered By: Juanita Anderson on 03-03-2023 Cholesterol in VLDL [Mass/Vol] 16 mg/dL 5-40 [facility] Serum or plasma creatinine m easurement (mass/volume)Ordered By: Juanita Anderson on 03-03-2023 Creatinine [Mass/Vol] 0.64 mg/dL 0.55-1.02 [facility] Comment on above: The validity of the calculated GFR & GFRAA in patients over 70 years has not been determined. Clinical correlation is essential. Serum or plasma low density lipoprotein (LDL) cholesterol measurement (mass/volume)Ordered By: Juanita Anderson on 03-03-2023 Cholesterol in LDL [Mass/Vol] 152 mg/dL 0-130 [facility] Serum or plasma urea nitroge n measurement (mass/volume)Ordered By: Junaita Anderson on 03-03-2023 Urea nitrogen [Mass/Vol] 13 mg/dL 7-18 [facility] Thin prep Papanicolaou smear with manual screeningOrdered By: Juanita Anderson on 03-03-2023 Thin prep Papanicolaou smear with manual screening 15 U/L 15-37 [facility] Thin prep Papanicolaou smear with manual screening 3 5-15 [facility] Absolute lymphocyte counton 03-31-2022 Lymphocytes Auto (Unsp spec) [#/Vol] 1.63 10*3/uL 0.83-4.51 [facility] Work Phone: Basophil percentageon 2021 Basophils/100 WBC (Bld) 1.2 % 0-1 [facility] Work Phone: Bilirubin [Mass/Vol] 0.70 mg/dL 0.20-1.00 [facility] Work Phone: Comment on above: For patients on eltr ombopag therapy, use of Dimension [place] TBIL is not recommended. Chloride [Moles/Vol] 105 mmol/L 98-107 [facility] Work Phone: Cholesterol [Mass/Vol] 222 mg/dL <200 [facility] Work Phone: Comment on above: <200 mg/dL Desirable 200-240 mg/dL Borderline >240 mg/dL High Risk Eosinophils/100 WBC (Bld) 2.4 % 0-5 [facility] Work Phone: Glucose [Mass/Vol] 100 mg/dL 74-106 [facility] Work Phone: Comment on above: Fasting Glucose resu lt from 100 to 125 mg/dL suggests IMPAIRED HOMEOSTASIS per A.D.A. criteria. Neutrophils (Bld) [#/Vol] 2.0 10*3/uL 2.0-7.7 [facility] Work Phone: Neutrophils/100 WBC (Bld) 47.0 % 47-70 [facility] Work Phone: Potassium [Moles/Vol] 4.0 mmol/L 3.5-5.1 [facility] Work Phone: [phone] Protein [Mass/Vol] 7.1 g/dL 6.4-8.2 [facility] Work Phone: [phone] Sodium [Moles/Vol] 137 mmol/L 136-145 [facility] Work Phone: [phone] Triglyceride [Mass/Vol] 91 mg/dL <199 [facility] Work Phone: [phone] Comment on above: The drugs N-Acetylcy steine and Metamizole may falsely depress this assay.Serum Triglycerides Reference Interval Normal <150 mg/dL Borderline high 150 - 199 mg/dL High 200 - 499 mg/dL Very High > or = 500 mg/dL WBC (Bld) [#/Vol] 4.2 10*3/uL 4.4-11.0 [facility] Work Phone: [phone] Blood erythrocytes count (nu mber/volume)on 03-31-2022 RBC (Bld) [#/Vol] 4.60 10*6/uL 4.2-5.4 [facility] Work Phone: [phone] Blood hemoglobin measurement (mass/volume)on 03-31-2022 Hemoglobin (Bld) [Mass/Vol] 13.7 g/dL 12.0-15.0 [facility] Work Phone: [phone] Blood lymphocytes/100 leukoc yteson 03-31-2022 Lymphocytes/100 WBC (Bld) 38.9 % 19-41 [facility] Work Phone: [phone] Blood monocytes/100 leukocyt eson 03-31-2022 Monocytes/100 WBC (Bld) 9.8 % 0-10 [facility] Work Phone: [phone] Blood platelet mean volumeon 03-31-2022 Platelet mean volume (Bld) [Entitic vol] 11.2 fL 6.2-12.0 [facility] Work Phone: [phone] Determination of erythrocyte mean corpuscular volume (MCV)on 03-31-2022 MCV (RBC) [Entitic vol] 88.9 fL 81-99 [facility] Work Phone: [phone] Hematocrit Auto (Bld) [Volum e fraction]on 03-31-2022 Hematocrit (Bld) [Volume fraction] 40.9 % 37-47 [facility] Work Phone: [phone] Laboratory - Chemistry and C hemistry - challengeon 03-31-2022 ALP [Catalytic activity/Vol] 65 U/L 45-117 [facility] Work Phone: [phone] ALT [Catalytic activity/Vol] 15 U/L 13-56 [facility] Work Phone: [phone] CO2 [Moles/Vol] 30.0 mmol/L 21.0-32.0 [facility] Work Phone: [phone] Globulin (S) [Mass/Vol] 3.1 g/dL 2.2-4.2 [facility] Work Phone: [phone] Urea nitrogen/Creatinine [Mass ratio] 22.7 mg/mg 10-20 [facility] Work Phone: [phone] Laboratory - Hematology and Cell countson 03-31-2022 Erythrocyte distribution width (RBC) [Entitic vol] 42.7 fL 35.1-43.9 [facility] Work Phone: [phone] Erythrocyte distribution width (RBC) [Ratio] 13.1 % 11.6-14.6 [facility] Work Phone: [phone] Immature granulocytes/100 WBC (Bld) 0.700 % 0.0-0.9 [facility] Work Phone: [phone] Comment on above: IG% - Immature Granu locytes (promyelocytes, myelocytes and metamyelocytes) > 1% indicates that a LEFT SHIFT is Present. MCH (RBC) [Entitic mass] 29.8 pg 27.0-32.0 [facility] Work Phone: [phone] Nucleated RBC/100 WBC (Bld) [Ratio] 0 % 0-5 [facility] Work Phone: [phone] MCHC Auto (RBC) [Mass/Vol]on 03-31-2022 MCHC (RBC) [Mass/Vol] 33.5 g/dL 32-36 [facility] Work Phone: No Panel Informationon 03-31 Estimated GFR (MDRD) Amer 126 mL/min >60 [facility] Work Phone: Comment on above: GFR Calc Estimated GFR (MDRD) Non-Af Amer 104 mL/min >60 [facility] Work Phone: Comment on above: Non- GFR Calc Thyroid Stimulating Hormone (TSH) 1.36 uIU/mL 0.358-3.74 [facility] Work Phone: [phone] Vitamin D 25-Hydroxy 47.3 ng/mL [facility] Work Phone: Comment on above: Vitamin D 25(OH) Sta tus Range Deficiency <20 ng/mL (50nmol/L) Insufficiency 20 - 30 ng/mL (50 - 75 nmol/L) Sufficiency 30 - 100 ng/mL (75 - 250 nmol/L) Toxicity >100 ng/mL (>250 nmol/L) Platelets bldon 03-31-2022 Platelets (Bld) [#/Vol] 237 10*3/uL 150-450 [facility] Work Phone: Serum or plasma albumin raine urement (mass/volume)on 03-31-2022 Albumin [Mass/Vol] 4.0 g/dL 3.2-5.0 [facility] Work Phone: Serum or plasma albumin/glob ulin mass ratioon 03-31-2022 Albumin/Globulin [Mass ratio] 1.3 {ratio} 0.9-2.4 [facility] Work Phone: [phone] Serum or plasma calcium raine urement (mass/volume)on 03-31-2022 Calcium [Mass/Vol] 8.7 mg/dL 8.5-10.1 [facility] Work Phone: [phone] Serum or plasma cholesterol in HDL measurement (mass/volume)on 03-31-2022 Cholesterol in HDL [Mass/Vol] 73 mg/dL >40 [facility] Work Phone: Comment on above: The drugs N-Acetylcy steine and Metamizole may falsely depress this assay. Reference Range HDL <40 mg/dL Low HDL Cholesterol HDL >or= 60 mg/dL High HDL Cholesterol Serum or plasma cholesterol in VLDL measurement (mass/volume)on 03-31-2022 Cholesterol in VLDL [Mass/Vol] 18 mg/dL 5-40 [facility] Work Phone: Serum or plasma creatinine m easurement (mass/volume)on 03-31-2022 Creatinine [Mass/Vol] 0.62 mg/dL 0.55-1.02 [facility] Work Phone: Comment on above: The validity of the calculated GFR & GFRAA in patients over 70 years has not been determined. Clinical correlation is essential. Serum or plasma low density lipoprotein (LDL) cholesterol measurement (mass/volume)on 03-31-2022 Cholesterol in LDL [Mass/Vol] 131 mg/dL 0-130 [facility] Work Phone: Serum or plasma urea nitroge n measurement (mass/volume)on 03-31-2022 Urea nitrogen [Mass/Vol] 14 mg/dL 7-18 [facility] Work Phone: Thin prep Papanicolaou smear with manual screeningon 03-31-2022 Thin prep Papanicolaou smear with manual screening 14 U/L 15-37 [facility] Work Phone: Thin prep Papanicolaou smear with manual screening 2 5-15 [facility] Work Phone: Basophil percentageon 2021 Cholesterol [Mass/Vol] 221 mg/dL <200 [facility] Work Phone: Comment on above: <200 mg/dL Desirable 200-240 mg/dL Borderline >240 mg/dL High Risk Triglyceride [Mass/Vol] 94 mg/dL [facility] Work Phone: Comment on above: The drugs N-Acetylcy steine and Metamizole may falsely depress this assay.Serum Triglycerides Reference Interval Normal <150 mg/dL Borderline high 150 - 199 mg/dL High 200 - 499 mg/dL Very High > or = 500 mg/dL Serum or plasma cholesterol in HDL measurement (mass/volume)on 04-08-2022 Cholesterol in HDL [Mass/Vol] 74 mg/dL [facility] Work Phone: Comment on above: The drugs N-Acetylcy steine and Metamizole may falsely depress this assay. Reference Range HDL <40 mg/dL Low HDL Cholesterol HDL >or= 60 mg/dL High HDL Cholesterol Serum or plasma cholesterol in VLDL measurement (mass/volume)on 08-01-2021 Cholesterol in VLDL [Mass/Vol] 19 mg/dL 5-40 [facility] Work Phone: Serum or plasma low density lipoprotein (LDL) cholesterol measurement (mass/volume)on 08-01-2021 Cholesterol in LDL [Mass/Vol] 128 mg/dL 0-130 [facility] Work Phone: CNOVon 04-14-2021 CNOV Office Visit (INTMWS ) CECY HONG ([id number]) 1960 F Date Time Provider Department 04/14/21 2:20 PM FILIBERTO BENITEZ INTMWS During your visit today, we recorded the following information about you: Pulse Respiration Blood pressure Weight 66/minute 16/minute 118/72 66.7 kg Filiberto Benitez MD 07/12/2021 3:53 PM Signed This note was created using NoteWriter. Subjective Cecy Hong is a 60 year [...] Component Latest (more content not included)... Normal [facility] Basophil percentageon 2020 Bilirubin [Mass/Vol] 0.60 mg/dL 0.20-1.00 [facility] Work Phone: Comment on above: For patients on eltr ombopag therapy, use of Dimension [place] TBIL is not recommended. Chloride [Moles/Vol] 103 mmol/L 98-107 [facility] Work Phone: Cholesterol [Mass/Vol] 270 mg/dL <200 [facility] Work Phone: Comment on above: <200 mg/dL Desirable 200-240 mg/dL Borderline >240 mg/dL High Risk Glucose [Mass/Vol] 94 mg/dL 74-106 [facility] Work Phone: Comment on above: Please note revised GLUCOSE reference range effective 2017. Potassium [Moles/Vol] 4.1 mmol/L 3.5-5.1 [facility] Work Phone: [phone] Protein [Mass/Vol] 7.2 g/dL 6.4-8.2 [facility] Work Phone: [phone] Sodium [Moles/Vol] 139 mmol/L 136-145 [facility] Work Phone: [phone] Triglyceride [Mass/Vol] 113 mg/dL [facility] Work Phone: Comment on above: The drugs N-Acetylcy steine and Metamizole may falsely depress this assay.Serum Triglycerides Reference Interval Normal <150 mg/dL Borderline high 150 - 199 mg/dL High 200 - 499 mg/dL Very High > or = 500 mg/dL WBC (Bld) [#/Vol] 5.0 10*3/uL 4.4-11.0 [facility] Work Phone: [phone] Blood erythrocytes count (nu mber/volume)on 04-08-2021 RBC (Bld) [#/Vol] 4.63 10*6/uL 4.2-5.4 [facility] Work Phone: [phone] Blood hemoglobin measurement (mass/volume)on 04-08-2021 Hemoglobin (Bld) [Mass/Vol] 13.6 g/dL 12.0-15.0 [facility] Work Phone: [phone] Blood platelet mean volumeon 04-08-2021 Platelet mean volume (Bld) [Entitic vol] 10.9 fL 6.2-12.0 [facility] Work Phone: [phone] Determination of erythrocyte mean corpuscular volume (MCV)on 04-08-2021 MCV (RBC) [Entitic vol] 88.6 fL 81-99 [facility] Work Phone: [phone] Hematocrit Auto (Bld) [Volum e fraction]on 04-08-2021 Hematocrit (Bld) [Volume fraction] 41.0 % 37-47 [facility] Work Phone: Laboratory - Chemistry and C hemistry - challengeon 04-08-2021 ALP [Catalytic activity/Vol] 73 U/L 45-117 [facility] Work Phone: ALT [Catalytic activity/Vol] 20 U/L 13-56 [facility] Work Phone: [phone] CO2 [Moles/Vol] 28.0 mmol/L 21.0-32.0 [facility] Work Phone: [phone] Free T4 [Mass/Vol] 1.12 ng/dL 0.76-1.46 [facility] Work Phone: [phone] Globulin (S) [Mass/Vol] 3.4 g/dL 2.2-4.2 [facility] Work Phone: [phone] Urea nitrogen/Creatinine [Mass ratio] 20.8 mg/mg 10-20 [facility] Work Phone: [phone] Laboratory - Hematology and Cell countson 04-08-2021 Erythrocyte distribution width (RBC) [Entitic vol] 41.9 fL 35.1-43.9 [facility] Work Phone: Erythrocyte distribution width (RBC) [Ratio] 12.9 % 11.6-14.6 [facility] Work Phone: MCH (RBC) [Entitic mass] 29.4 pg 27.0-32.0 [facility] [facility] Work Phone: MCHC Auto (RBC) [Mass/Vol]on 04-08-2021 MCHC (RBC) [Mass/Vol] 33.2 g/dL 32-36 [facility] Work Phone: No Panel Informationon 04-08 Estimated GFR (MDRD) Amer 106 mL/min >60 [facility] Work Phone: Comment on above: GFR Calc Estimated GFR (MDRD) Non-Af Amer 87 mL/min >60 [facility] Work Phone: Comment on above: Non- GFR Calc Free Triiodothyronine (T3) pg/dL 2.5 pg/mL 2.18-3.98 [facility] Work Phone: Thyroid Stimulating Hormone (TSH) 1.58 uIU/mL 0.358-3.74 [facility] Work Phone: Platelets bldon 04-08-2021 Platelets (Bld) [#/Vol] 270 10*3/uL 150-450 [facility] Work Phone: Serum or plasma albumin raine urement (mass/volume)on 04-08-2021 Albumin [Mass/Vol] 3.8 g/dL 3.2-5.0 [facility] Work Phone: [phone] Serum or plasma albumin/glob ulin mass ratioon 04-08-2021 Albumin/Globulin [Mass ratio] 1.1 {ratio} 0.9-2.4 [facility] Work Phone: Serum or plasma calcium raine urement (mass/volume)on 04-08-2021 Calcium [Mass/Vol] 8.5 mg/dL 8.5-10.1 [facility] Work Phone: Serum or plasma cholesterol in HDL measurement (mass/volume)on 04-08-2021 Cholesterol in HDL [Mass/Vol] 75 mg/dL [facility] Work Phone: Comment on above: The drugs N-Acetylcy steine and Metamizole may falsely depress this assay. Reference Range HDL <40 mg/dL Low HDL Cholesterol HDL >or= 60 mg/dL High HDL Cholesterol Serum or plasma cholesterol in VLDL measurement (mass/volume)on 04-08-2021 Cholesterol in VLDL [Mass/Vol] 23 mg/dL 5-40 [facility] Work Phone: [phone] Serum or plasma creatinine m easurement (mass/volume)on 04-08-2021 Creatinine [Mass/Vol] 0.72 mg/dL 0.55-1.02 [facility] Work Phone: Comment on above: The validity of the calculated GFR & GFRAA in patients over 70 years has not been determined. Clinical correlation is essential. Serum or plasma low density lipoprotein (LDL) cholesterol measurement (mass/volume)on 04-08-2021 Cholesterol in LDL [Mass/Vol] 172 mg/dL 0-130 [facility] Work Phone: Serum or plasma urea nitroge n measurement (mass/volume)on 04-08-2021 Urea nitrogen [Mass/Vol] 15 mg/dL 7-18 [facility] Work Phone: Thin prep Papanicolaou smear with manual screeningon 04-08-2021 Thin prep Papanicolaou smear with manual screening 15 U/L 15-37 [facility] Work Phone: Thin prep Papanicolaou smear with manual screening 8 5-15 [facility] Work Phone: OBSOLETEon 10-17-2020 OBSOLETE Refill (INTMWS) CECY HONG ([id number]) 1960 F Date Time Provider Department 10/17/20 FILIBERTO BENITEZ INTFransiscaWS During your visit today, [...] Status:Closed by SOPHIA GONZALEZ on 10/18/20 Normal [facility] Vital Signs Date Time Vital Sign Value Performing Clinician Facility 10-13-2024 08:15-0400 Body height 165.[address] Juanita Anderson MD Work Phone: [facility] 10-13-2024 08:15-0400 Body mass index (BMI) [Ratio] 24.2 kg/m2 Dr. Juanita Anderson MD Work Phone: [facility] 10-13-2024 08:15-0400 Body temperature 97.1 [degF] Dr. Juanita Anderson MD Work Phone: [facility] 10-13-2024 08:15-0400 Body weight 65.[address] Juanita Anderson MD Work Phone: [facility] 10-13-2024 08:15-0400 Diastolic blood pressure 72 mm[Hg] Dr. Juanita Anderson MD Work Phone: [facility] 10-13-2024 08:15-0400 Heart rate 86 /min Dr. Juanita Anderson MD Work Phone: [facility] 10-13-2024 08:15-0400 Respiratory rate 12 /min Dr. Juanita Anderson MD Work Phone: [facility] 10-13-2024 08:15-0400 SaO2% (BldA) [Mass fraction] 98 % Dr. Juanita Anderson MD Work Phone: [facility] 10-13-2024 08:15-0400 Systolic blood pressure 124 mm[Hg] Dr. Juanita Anderson MD Work Phone: [facility] 08-25-2024 14:30-0400 Body mass index (BMI) [Ratio] 24.3 kg/m2 Dr. Juanita Anderson MD Work Phone: [facility] 08-25-2024 14:30-0400 Body weight 66.[address] Juanita Anderson MD Work Phone: [facility] 08-25-2024 14:30-0400 Diastolic blood pressure 83 mm[Hg] Dr. Juanita Anderson MD Work Phone: [facility] 08-25-2024 14:30-0400 Systolic blood pressure 129 mm[Hg] Dr. Juanita Anderson MD Work Phone: [facility] 08-16-2023 14:51-0400 Body height 165.[address] Juanita Anderson Work Phone: [facility] 08-16-2023 14:51-0400 Body mass index (BMI) [Ratio] 23.5 kg/m2 Dr. Juanita Anderson Work Phone: [facility] 08-16-2023 14:51-0400 Body weight 64.[address] Juanita Anderson Work Phone: [facility] 08-16-2023 14:51-0400 Diastolic blood pressure 79 mm[Hg] Dr. Juanita Anderson Work Phone: [facility] 08-16-2023 14:51-0400 Systolic blood pressure 123 mm[Hg] Dr. Juanita Anderson Work Phone: [facility] 04-26-2023 12:08-0500 Body mass index (BMI) [Ratio] 22.9 kg/m2 Dr. Juanita Anderson Work Phone: [facility] 04-26-2023 12:08-0500 Body temperature 99.5 [degF] Dr. Juanita Anderson Work Phone: [facility] 04-26-2023 12:08-0500 Body weight 62.[address] Juanita Anderson Work Phone: [facility] 04-26-2023 12:08-0500 Heart rate 82 /min Dr. Juanita Anderson Work Phone: [facility] 04-26-2023 12:08-0500 Respiratory rate 16 /min Dr. Juanita Anderson Work Phone: [facility] 04-26-2023 12:08-0500 SaO2% (BldA) [Mass fraction] 98 % Dr. Juanita Anderson Work Phone: [facility] 03-03-2023 09:58-0500 Body height 167.[address] Juanita Anderson Work Phone: [facility] 03-03-2023 09:58-0500 Body temperature 97.8 [degF] Dr. Juanita Anderson Work Phone: [facility] 03-03-2023 09:58-0500 Diastolic blood pressure 62 mm[Hg] Dr. Juanita Anderson Work Phone: [facility] 03-03-2023 09:58-0500 Heart rate 71 /min Dr. Juanita Anderson Work Phone: [facility] 03-03-2023 09:58-0500 Respiratory rate 15 /min Dr. Juanita Anderson Work Phone: [facility] 03-03-2023 09:58-0500 SaO2% (BldA) [Mass fraction] 98 % Dr. Juanita Anderson Work Phone: [facility] 03-03-2023 09:58-0500 Systolic blood pressure 118 mm[Hg] Dr. Juanita Anderson Work Phone: [facility] 03-09-2022 10:56-0500 Diastolic Blood Pressure Non-Invasive [address] ZBIGNIEW RYA MD [facility] 03-09-2022 10:56-0500 Heart rate 82 /min DR ZBIGNIEW RAY MD [facility] 03-09-2022 10:56-0500 Respiratory rate 15 /min DR ZBIGNIEW RAY MD [facility] 03-09-2022 10:56-0500 Systolic Blood Pressure Non-Invasive [address] ZBIGNIEW RAY MD [facility] 03-09-2022 10:47-0500 Diastolic Blood Pressure Non-Invasive [address] ZBIGNIEW RAY MD [facility] 03-09-2022 10:47-0500 Heart rate 79 /min DR ZBIGNIEW RAY MD [facility] 03-09-2022 10:47-0500 Systolic Blood Pressure Non-Invasive [address] ZBIGNIEW RAY MD [facility] 03-09-2022 10:35-0500 Heart rate 84 /min DR ZBIGNIEW RAY MD [facility] 03-09-2022 10:35-0500 Respiratory Rate - Anes 12 br/min DR ZBIGNIEW RAY MD [facility] 03-09-2022 10:35-0500 systolic 150 mm[Hg] DR ZBIGNIEW RAY MD [facility] 03-09-2022 10:30-0500 diastolic 76 mm[Hg] DR ZBIGNIEW RAY MD [facility] 03-09-2022 10:30-0500 Respiratory Rate - Anes 20 br/min DR ZBIGNIEW RAY MD [facility] 03-09-2022 10:25-0500 Respiratory Rate - Anes 8 br/min DR ZBIGNIEW RAY MD [facility] 03-09-2022 09:38-0500 Body height 165.[address] ZBIGNIEW RAY MD [facility] 03-09-2022 09:38-0500 Body temperature 98.42 [degF] DR ZBIGNIEW RAY MD [facility] 03-09-2022 09:38-0500 Body weight [address] ZBIGNIEW RAY MD [facility] 03-09-2022 09:38-0500 Heart rate 83 /min DR ZBIGNIEW RAY MD [facility] 03-09-2022 09:38-0500 Respiratory rate 14 /min DR ZBIGNIEW RAY MD [facility] 02-17-2022 14:20-0400 Body height 167.[address] Juanita Anderson Work Phone: [facility] Work Phone: 02-17-2022 14:20-0400 Body mass index (BMI) [Ratio] 22.7 kg/m2 Dr. Juanita Anderson Work Phone: [facility] Work Phone: 02-17-2022 14:20-0400 Body temperature 98.8 [degF] Dr. Juanita Anderson Work Phone: [facility] Work Phone: 02-17-2022 14:20-0400 Body weight 63.[address] Juanita Anderson Work Phone: [facility] Work Phone: 02-17-2022 14:20-0400 Diastolic blood pressure 74 mm[Hg] Dr. Juanita Anderson Work Phone: [facility] Work Phone: 02-17-2022 14:20-0400 Heart rate 85 /min Dr. Juanita Anderson Work Phone: [facility] Work Phone: 02-17-2022 14:20-0400 Respiratory rate 14 /min Dr. Juanita Anderson Work Phone: [facility] Work Phone: 02-17-2022 14:20-0400 SaO2% (BldA) [Mass fraction] 98 % Dr. Juanita Anderson Work Phone: [facility] Work Phone: 02-17-2022 14:20-0400 Systolic blood pressure 116 mm[Hg] Dr. Juanita Anderson Work Phone: [facility] Work Phone: 02-10-2022 11:55-0400 Body mass index (BMI) [Ratio] 22.6 kg/m2 Dr. Juanita Anderson Work Phone: [facility] Work Phone: 02-10-2022 11:55-0400 Body temperature 98.4 [degF] Dr. Juanita Anderson Work Phone: [facility] Work Phone: 02-10-2022 11:55-0400 Body weight 63.[address] Juanita Anderson Work Phone: [facility] Work Phone: 02-10-2022 11:55-0400 Diastolic blood pressure 70 mm[Hg] Dr. Juanita Anderson Work Phone: [facility] Work Phone: 02-10-2022 11:55-0400 Heart rate 93 /min Dr. Juanita Anderson Work Phone: [facility] Work Phone: 02-10-2022 11:55-0400 Respiratory rate 15 /min Dr. Juanita Anderson Work Phone: [facility] Work Phone: 02-10-2022 11:55-0400 SaO2% (BldA) [Mass fraction] 97 % Dr. Juanita Anderson Work Phone: [facility] Work Phone: 02-10-2022 11:55-0400 Systolic blood pressure 122 mm[Hg] Dr. Juanita Anderson Work Phone: [facility] Work Phone: 05-23-2021 08:57-0500 Body height 165.[address] Filiberto Benitez Work Phone: [facility] Work Phone: 05-23-2021 08:57-0500 Body mass index (BMI) [Ratio] 24.4 kg/m2 Dr. Filiberto Benitez Work Phone: [facility] Work Phone: 05-23-2021 08:57-0500 Body temperature 98.4 [degF] Dr. Filiberto Benitez Work Phone: [facility] Work Phone: 05-23-2021 08:57-0500 Body weight 66.[address] Filiberto Benitez Work Phone: [facility] Work Phone: 05-23-2021 08:57-0500 Diastolic blood pressure 82 mm[Hg] Dr. Filiberto Benitez Work Phone: [facility] Work Phone: 05-23-2021 08:57-0500 Heart rate 97 /min Dr. Filiberto Benitez Work Phone: [facility] Work Phone: 05-23-2021 08:57-0500 Respiratory rate 16 /min Dr. Filiberto Benitez Work Phone: [facility] Work Phone: 05-23-2021 08:57-0500 SaO2% (BldA) [Mass fraction] 97 % Dr. Filiberto Benitez Work Phone: [facility] Work Phone: 05-23-2021 08:57-0500 Systolic blood pressure 140 mm[Hg] Dr. Filiberto Benitez Work Phone: [facility] Work Phone: 04-24-2021 12:57-0500 Body mass index (BMI) [Ratio] 24.4 kg/m2 Dr. Filiberto Benitez Work Phone: [facility] Work Phone: 04-24-2021 12:57-0500 Body weight 67.[address] Filiberto Benitez Work Phone: [facility] Work Phone: 04-24-2021 12:57-0500 Diastolic blood pressure 66 mm[Hg] Dr. Filiberto Benitez Work Phone: [facility] Work Phone: 04-24-2021 12:57-0500 Systolic blood pressure 118 mm[Hg] Dr. Filiberto Benitez Work Phone: [facility] Work Phone: 04-14-2021 15:17-0500 Body weight 66.68 kg Filiberto Benitez MD Work Phone: [facility] 04-14-2021 15:17-0500 Diastolic blood pressure 72 mm[Hg] Filiberto Benitez MD Work Phone: [facility] 04-14-2021 15:17-0500 Heart rate 66 /min Filiberto Benitez MD Work Phone: [facility] 04-14-2021 15:17-0500 Respiratory rate 16 /min Filiberto Benitez MD Work Phone: [facility] 04-14-2021 15:17-0500 Systolic blood pressure 118 mm[Hg] Filiberto Benitez MD Work Phone: [facility] Encounters Encounter Date Encounter Type Care Provider Facility Start: 10-13-2024 Encounter for antibo dy response examination Juanita Anderson [facility] Start: 10-13-[address] Juanita Anderson MD Work Phone: [facility] Start: 10-13-2024 End: 10-13-[address] Juanita Anderson MD -[facility] Work Phone: Start: 10-13-2024 End: 10-13-[address] Juanita Anderson MD Work Phone: [facility] Work Phone: Start: 08-25-2024 End: 08-25-[address] Jeanne Barrios MD -[facility] Work Phone: Start: 08-25-2024 End: 08-25-[address] Jeanne Barrios MD [facility] Start: 08-25-2024 End: 08-25-2024 [facility] Start: 02-09-2024 End: 02-09-2024 ambulatory [facility] Facility:[facility] Start: 08-18-2023 End: 08-18-[address] Juanita Anderson Work Phone: [facility] Work Phone: Start: 08-18-2023 End: 08-18-[address] Juanita Anderson Work Phone: [facility] Start: 08-16-2023 End: 08-16-[address] Juanita Anderson Work Phone: [facility] Work Phone: Start: 08-16-2023 End: 08-16-[address] Juanita Anderson Work Phone: [facility] Work Phone: Start: 08-16-2023 End: 08-16-[address] Juanita Anderson Work Phone: [facility] Work Phone: Start: 04-26-2023 End: 04-26-[address] Juanita Anderson Work Phone: [facility] Work Phone: Start: 03-31-2023 Non-patient / Non-visit Dr. Zoran Anderson Work Phone: [facility] Start: 03-31-2023 End: 03-31-[address] Juanita Anderson Work Phone: [facility] Work Phone: Start: 03-31-2023 End: 03-31-[address] Juanita Anderson Work Phone: [facility] Work Phone: Start: 03-03-2023 End: 03-03-[address] Juanita Anderson Work Phone: [facility] Work Phone: Start: 03-03-2023 End: 03-03-2023 Encounter for general adult medical examination without abnormal findings Dr. Juanita Anderson Work Phone: [facility] Start: 03-03-2023 End: 03-03-[address] Juanita Anderson Work Phone: [facility] Work Phone: Start: 01-28-2023 End: 01-28-[address] Juanita Anderson Work Phone: [facility] Work Phone: Start: 03-31-2022 End: 03-31-[address] Juanita Anderson Work Phone: [facility] Work Phone: Start: 03-31-2022 End: 03-31-[address] Juanita Anderson Work Phone: [facility] Start: 03-09-2022 End: 03-10-[address] ZBIGNIEW RAY MD. Facility:[facility] Start: 03-09-2022 End: 03-09-[address] ZBIGNIEW RAY MD [facility] Start: 02-17-2022 End: 02-17-2022 Encounter for general adult medical examination without abnormal findings Dr. Juanita Anderson Work Phone: [facility] Start: 02-17-2022 End: 02-17-[address] Juanita Anderson Work Phone: [facility] Start: 02-10-2022 End: 02-10-[address] Juanita Anderson Work Phone: [facility] Start: 01-27-2022 End: 01-27-2022 ambulatory [facility] Work Phone: Start: 01-27-2022 End: 01-27-2022 Patient encounter procedure [facility] Start: 08-01-2021 End: 08-01-[address] Filiberto Benitez Work Phone: [facility] Start: 05-23-[address] Filiberto Benitez Work Phone: [facility] Start: 05-23-2021 End: 05-23-2021 Encounter for general adult medical examination without abnormal findings Dr. Filiberto Benitez Work Phone: [facility] Start: 05-23-2021 End: 05-23-[address] Filiberto Benitez Work Phone: [facility] Start: 05-15-2021 Non-patient / Non-visit Dr. Danika Benitez Work Phone: [facility] Start: 04-24-2021 End: 04-24-[address] Filiberto Benitez Work Phone: [facility] Start: 04-14-2021 End: 04-14-2021 Patient encounter procedure Filiberto Benitez MD Work Phone: [facility] Comment on above: Routine medical exam (Primary Dx); Acquired hypothyroidism; Vitamin D deficiency; Mixed hyperlipidemia; Encounter for long-term current use of medication; Cervical neck pain with evidence of disc disease Start: 04-14-2021 End: 04-14-2021 Patient encounter status Filiberto Benitez MD Work Phone: [facility] Start: 04-08-[address] Filiberto Benitez Work Phone: [facility] Procedures Date Procedure Procedure Detail Performing Clinician Start: 01-28-2023 Screening mammography Cathryn Anderson Work Phone: Start: 01-27-2022 Screening mammography Start: 04-12-2021 Adult depression scr eening assessment Filiberto Benitez MD Work Phone: Start: 01-17-2021 Mammography Filiberto shi MD Work Phone: Start: 03-10-2012 Colonoscopy Filiberto shi MD Work Phone: Carpal tunnel syndro me (disorder) DR ZBIGNIEW RAY MD section DR ZBIGNIEW RAY MD Colonoscopy DR ZBIGNIEW BERNAL MD Diverticulosis of colon DR Luis RAY MD Hysteroscopy DR ZBIGNIEW BERNAL MD Neuroma of foot (disorder) Cathryn RAY MD Comment on above: left foot. Plan of Treatment Date Care Activity Detail Author Start: 04-12-2029 Urine microalbumin profile DTA P,TDAP,TD (4 - Td or Tdap) [facility] Start: 04-08-2025 LIPID SCREEN LIPID SCREEN [facility] Start: 10-13-2024 CBC W Auto Different ial panel - Blood [facility] Start: 10-13-2024 Comprehensive metabo lic 2000 panel - Serum or Plasma [facility] Start: 10-13-2024 Lipid 1996 panel - S aranza or Plasma [facility] Start: 10-13-2024 Measurement of Measl es virus antibody [facility] Start: 10-13-2024 Thyroid stimulating hormone measurement [facility] Start: 10-13-2024 Vitamin D, 25-hydrox y measurement [facility] Start: 04-08-2023 DIABETES SCREEN DIABETES SCREEN [facility] Start: 04-14-2022 ANNUAL 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 [employer] YAZAN DISEASE VISIT ANNUAL PCP TEAM CHRONIC DISEASE VISIT [facility] Start: 04-14-2022 End: 04-14-2022 CBC panel - Blood by Automated count CBC Lab Routine Routine medical exam Encounter for long-term current use of medication Expected: 04/14/2022 (Approximate), Expires: 04/14/2022 [facility] Work Phone: Comment on above: Expected: 04/14/2022 (Approximate), Expires: 04/14/2022 Start: 04-14-2022 End: 04-14-2022 Comprehensive metabolic 2000 panel - Serum or Plasma COMP METABOLIC PANEL Lab Routine Routine medical exam Encounter for long-term current use of medication Expected: 04/14/2022 (Approximate), Expires: 04/14/2022 [facility] Work Phone: Comment on above: Expected: 04/14/2022 (Approximate), Expires: 04/14/2022 Start: 04-14-2022 End: 04-14-2022 LIPID PANEL BASIC LIPID PANEL BASIC Lab Routine Routine medical exam Mixed hyperlipidemia Expected: 04/14/2022 (Approximate), Expires: 04/14/2022 [facility] Work Phone: Comment on above: Expected: 04/14/2022 (Approximate), Expires: 04/14/2022 Start: 04-14-2022 End: 04-14-2022 T3 FREE BLD T3 FREE BLD Lab Routine Routine medical exam Acquired hypothyroidism Expected: 04/14/2022 (Approximate), Expires: 04/14/2022 [facility] Work Phone: Comment on above: Expected: 04/14/2022 (Approximate), Expires: 04/14/2022 Start: 04-14-2022 End: 04-14-2022 T4 FREE/FREE THYROX T4 FREE/FREE THYROX Lab Routine Routine medical exam Acquired hypothyroidism Expected: 04/14/2022 (Approximate), Expires: 04/14/2022 [facility] Work Phone: Comment on above: Expected: 04/14/2022 (Approximate), Expires: 04/14/2022 Start: 04-14-2022 End: 04-14-2022 Thyrotropin [Units/volume] in Serum or Plasma TSH BLD Lab Routine Routine medical exam Acquired hypothyroidism Expected: 04/14/2022 (Approximate), Expires: 04/14/2022 [facility] Work Phone: Comment on above: Expected: 04/14/2022 (Approximate), Expires: 04/14/2022 Start: 04-14-2022 End: 04-14-2022 VITAMIN D 25 HYDROXY VITAMIN D 25 HYDROXY Lab Routine Routine medical exam Vitamin D deficiency Expected: 04/14/2022 (Approximate), Expires: 04/14/2022 [facility] Work Phone: Comment on above: Expected: 04/14/2022 (Approximate), Expires: 04/14/2022 Start: 04-12-2022 Adult depression scr eening assessment DEPRESSION SCREENING [facility] Start: 03-10-2022 Colonoscopy COLONOSCOPY [facility] Start: 03-10-2022 COLORECTAL CANCER SCREENING COLORECTAL CANCER SCREENING [facility] Start: 01-17-2022 Mammography MAMMOGRAM [facility] Start: 08-11-2021 HPV TESTING HPV TESTING [facility] Start: 08-11-2021 PAP TESTING PAP TESTING [facility] Start: 2010 SHINGRIX VACCINE (1 of 2) LACEY GRIX VACCINE (1 of 2) [facility] Start: 2005 COLOGUARD (FIT-DNA) COLOGUARD (FIT-D NA) [facility] Start: [address] COLONOGRAPHY [facility] Start: 2005 FECAL OCCULT BLOOD FECAL OCCULT BLOO D [facility] Start: 2005 SIGMOIDOSCOPY SIGMOIDOSCOPY [facility] Start: 1978 HEPATITIS C SCREENING HEPATITIS C SC REENING [facility] Start: 1978 HIV SCREENING HIV SCREENING [facility] Alanine aminotransfe rase [Enzymatic activity/volume] in Serum or Plasma [facility] Albumin [Mass/volume ] in Serum or Plasma [facility] Alkaline phosphatase [Enzymatic activity/volume] in Serum or Plasma [facility] Anion gap in Serum o r Plasma [facility] Bilirubin, total measurement [facility] BUN/Creatinine ratio [facility] Calcium [Mass/volume ] in Serum or Plasma [facility] Carbon dioxide, tota l [Moles/volume] in Central venous blood [facility] Cholesterol [Mass/vo lume] in Serum or Plasma [facility] Cholesterol in HDL [Mass/volume] in Serum or Plasma [facility] Creatinine [Mass/vol ume] in Serum or Plasma [facility] DXA Bone [Mass/Area] Bone density [facility] Erythrocyte mean corpuscular volume determination [facility] Glucose [Mass/volume ] in Serum or Plasma [facility] Hematocrit [Volume Fraction] of Blood [facility] Hemoglobin [Mass/vol ume] in Blood [facility] Leukocytes [#/volume ] in Blood [facility] Low density lipoprot ein cholesterol measurement [facility] Mean corpuscular hemoglobin concentration determination [facility] Mean corpuscular hemoglobin determination [facility] Measurement of renal function [facility] MG Breast - bilatera l Screening [facility] MG Breast - bilatera l Screening [facility] Neutrophil count [facility] Neutrophil percent differential count [facility] Platelets [#/volume] in Blood [facility] Potassium measurement [facility] Red blood cell count [facility] Red cell distributio n width determination [facility] Serum chloride measurement [facility] Sodium measurement [facility] Total cholesterol:HD L ratio measurement [facility] Total protein measurement [facility] Triglycerides measurement [facility] Urea nitrogen [Mass/volume] in Serum or Plasma [facility] US Heart [facility] VLDL cholesterol measurement [facility] XR Knee 3 Views [facility] Immunizations Immunization Date Immunization Notes Care Provider [facility] 02-17-2022 influenza, injectabl e, quadrivalent, preservative free Dr. Juanita Anderson Work Phone: [facility] 02-17-2022 influenza, seasonal, injectable Dr. Juanita Anderson Work Phone: [facility] Work Phone: 03-06-2021 influenza, injectabl e, quadrivalent, preservative free Filiberto Benitez MD Work Phone: [facility] 08-21-2020 COVID-19 vaccine, ag e 12+ yr (PFIZER-BIONTECH [facility]) Filiberto Benitez MD Work Phone: [facility] 07-31-2020 COVID-19 vaccine, ag e 12+ yr (PFIZER-BIONTECH - [facility]) Filiberto Benitez MD Work Phone: [facility] 02-26-2020 Seasonal, quadrivale nt, recombinant, injectable influenza vaccine, preservative free Filiberto Benitez MD Work Phone: [facility] 04-12-2019 tetanus and diphther ia toxoids, adsorbed, preservative free, for adult use (5 Lf of tetanus toxoid and 2 Lf of diphtheria toxoid) Filiberto Benitez MD Work Phone: [facility] 01-28-2019 influenza, seasonal, injectable Filiberto Benitez MD Work Phone: [facility] 02-03-2018 Influenza, injectabl e, Madin [place] Canine Kidney, preservative free, quadrivalent Filiberto Benitez MD Work Phone: [facility] 02-01-2017 Influenza, injectabl e, Madin Kayli Canine Kidney, preservative free, quadrivalent Filiberto Benitez MD Work Phone: [facility] 02-10-2016 influenza, injectabl e, quadrivalent, preservative free Dr. Juanita Anderson Work Phone: [facility] 02-10-2016 influenza, seasonal, injectable Dr. Filiberto Benitez Work Phone: [facility] Work Phone: 03-11-2015 influenza, injectabl e, quadrivalent, preservative free Dr. Juanita Anderson Work Phone: [facility] 03-11-2015 influenza, seasonal, injectable Dr. Filiberto Benitez Work Phone: [facility] Work Phone: 01-24-2014 influenza, injectabl e, quadrivalent, preservative free Dr. Juanita Anderson Work Phone: [facility] 01-24-2014 influenza, seasonal, injectable Dr. Filiberto Benitez Work Phone: [facility] Work Phone: 03-20-[address] Filiberto Benitez Work Phone: [facility] 05-08-2008 tetanus toxoid, redu jovanna diphtheria toxoid, and acellular pertussis vaccine, adsorbed Filiberto Benitez MD Work Phone: [facility] 04-26-1997 diphtheria and tetan us toxoids, adsorbed for pediatric use Filiberto Benitez MD Work Phone: [facility] Work Phone: Payers Date Payer Category Payer Self-pay [id number] 2022 Unknown [id number] 2018 Unknown MMO MMO [employer] [id number] 2018-Present [phone] [address] [place] [address] PPO [id number] 1960 Unknown [id number] Self-pay SELF PAY INSURANCE [id number] Unknown [id number] Unknown [id number] Unknown [id number] Unknown [id number] Social History Date Type Detail Facility Start: 03-09-2022 End: 10-11-2023 Tobacco smoking status WAIS Never smoked tobacco [facility] Work Phone: Start: 04-14-2021 Alcohol intake Current drinke r of alcohol (finding) [facility] Start: 04-08-2021 History SDOH Alcohol Frequency 4 [facility] Start: 04-08-2021 History SDOH Alcohol Std Drinks 1 [facility] Start: 08-11-2016 History SDOH Alcohol Comment Socially [facility] Start: 04-08-2021 History SDOH Social Connections Phone 3 [facility] Start: 04-08-2021 History SDOH Social Connections Get Together 2 [facility] Start: 04-08-2021 History SDOH Physica l Activity MPS 6 [facility] Start: 04-08-2021 History SDOH Financial 5 [facility] Start: 1960 Sex Assigned At Not on file [facility] Start: 03-15-2021 End: 04-14-2021 Exposure to SARS-CoV-2 (event) Not sure [facility] Start: 05-23-2021 End: 04-26-2023 Tobacco smoking status NHIS Unknown if ever smoked [facility] Start: 1960 Sex Assigned At Female A [facility] Functional Status Date Assessment Result Facility 03-09-2022 [facility] Mental Status Date Assessment Result Facility 03-09-2022 [facility] Status [facility] x [facility] Clinical Notes 04-30-2007 to 08-25-2024 Note Date & Type Note Facility 08-25-2024 Evaluation note Diagnosis Onset Date Resolution Family history of breast cancer acute August 25, 2024 2: 25pm Dyspareunia chronic August 25, 2024 2:25pm Encounter for routine gynecological examination noneactive August 25, 2024 2: 25pm [place] [employer] Work Phone: 1(764) 352-812804-22-2024 NotePap Smear Specimen AdequacyApril 2023 4:39pmComment.Satisfactory for evaluation. Endocervical and/or squamous metaplasticcells (endocervical component)are present.Areas of partially obscuring inflammatory exudate are present.[facility] INTER[facility]ACED A#[id number] Hospital DaytonComment on above:Satisfactory for evaluation. Endocervical and/or squamous metaplasticcells (endocervical component)are present.Areas of partially obscuring inflammatory exudate are present.08-16-2023 NotePap Smear Specimen AdequacyApril 2023 4:39pmComment.Satisfactory for evaluation. Endocervical and/or squamous metaplasticcells (endocervical component)are present.Areas of partially obscuring inflammatory exudate are present.[facility] A#[id number] Hospital DaytonCom[facility] on above:Satisfactory for evaluation. Endocervical and/or squamous metaplasticcells (endocervical component)are present.Areas of partially obscuring inflammatory exudate are present.03-09-2022 Evaluation + Plan noteExtracted from: Title:Clinical Document Author:ZBIGNIEW RAY Date:03/09/22 [facility] ADMISSION HISTORY AN D PHYSICIAL CHIEF COMPLAINT: HISTORY OF PRESENT ILLNESS: REVIEW OF SYSTEMS: ACTIVE PROBLEMS: (2) Diverticula, colon ([id number]) Vertigo ([id number]) MEDICATIONS: Active Inpt Meds: None Active PRN Meds: None One Time Meds: None Active IV Meds: Lactated Ringers Infusion 1,000 mL (LR 1,000 mL) Start: 03/09/22 9:43:00 EST, Rate: 50 mL/hr, 03/09/22 9:43:00 EST ALLERGIES: (2) amoxicillin shellfish FAMILY HISTORY: SOCIAL HISTORY: PHYSICAL EXAM: VITALS: EbdndeLwisMKVvzrbPOLlS5FKQ4QvhoXc(kg) 03/09 09:3836.9--320204YP62/14 63.0 24 Hr Tmax: 36.9 at 03/09 [...] changes to the H&P unless noted below. [facility] 11-14-2022 Hospital Discharge instructions Patient Education [...] before eating solid foods. General instructions Take cphb-eln-yuvngjc and prescription medicines only as told by [...] 08/02/2016 Document Revised: 07/11/2018 Document Reviewed: 08/02/2016 [employer] Patient Education 2020 [employer]. 03/09/2022 10:50:06 Colonoscopy, Adult, Care After, Tqqq-do-Zjoe Colonoscopy, Adult, Care After This sheet gives [...] are soft and easy to digest. Take sdvh-asf-xgkniag or prescription medicines only as told by [...] 05/15/2011 Document Revised: 02/10/2018 Document Reviewed: 01/04/2017 [employer] Patient Education 2020 [employer]. Follow Up Care 02/24/2022 12:39:22 With:ZBIGNIEW RAY MD Address: [address] [facility] [address] [place] [phone] When: Unknown Comments:next colonoscopy 10 yers [facility] 11-14-2022 Summary of episode note Discharge Instructions Thank you for allowing [facility] to assist you with your healthcare needs. The following is importantdischarge information regarding your hospital visit. Your Care Team JUANITA ANDERSON MD What to do next Follow Up Appointments Follow Up with ZBIGNIEW RAY MD When Why: next colonoscopy 10 yers Where: [address] [facility] [address] [place] [address] [phone] Allergies amoxicillin shellfish Medications Please ask your [...] before eating solid foods. General instructions Take phab-qch-kblmpew and prescription medicines only as told by [...] 08/02/2016 Document Revised: 07/11/2018 Document Reviewed: 08/02/2016 [employer] Patient Education 2020 [employer]. Colonoscopy, Adult, Care After This sheet gives [...] are soft and easy to digest. Take dupx-gar-qaqhgqq or prescription medicines only as told by [...] 05/15/2011 Document Revised: 02/10/2018 Document Reviewed: 01/04/2017 [employer] Patient Education 2020 [employer]. Additional Information VACCINATE! IT SAVES LIVES! Members of the community who have not yet received the COVID-19 vaccine and would like to receive it can visit one of [facility] vaccine clinics. There are many vaccine clinic locations within the [facility]. For locations and available times, please visit [email or web address] It is important to note that some COVID mobile vaccine clinics are held outdoors and may be canceled in rainy or stormy conditions. To learn more about pediatric vaccinations (ages 5-11), we invite you to visit the [facility] webpage. [email or web address]/pages/[email or web address]-Yogns-Emlgnryijpo-Dvnjtygvgi-Kijov-Pgo stions.htmlTo learn more about the COVID-19 vaccine, we invite you to visit the [employer] website for a list of frequently asked questions. [email or web address]/assets/[email or web address]-hvn-Ythfzlyz/jizeu-Afjlevf-Dnscyuwanw _Asked-Questions.pdf [employer] Patient Portal Access Instructions: Stay connected with your healthcare team and access your personal medical information anytime with the [employer] Patient Portal.If you would like a full copy of your medical records, please contact the [facility] Medical Records Department, Wednesday through Wednesday between 8a.m. and 4:30p.m. Please follow the directions below to access the portal: 1.Access the email account you provided upon registration to the [facility].2.Look for an invitation email from [facility].3.Open the email and access the invitation link: Accept Invitation to [employer]4.Fill in the required garza to create your account. Sign into www.[email or web address] with your username and password that you [...] you will allow to register on the [facility] Patient Portal for access to your information. You can also access the [facility] Patient Portal on the [employer] anupam. Simply click on Health Records under Radiation Watch and then click on the [employer] logo. HOW TO SAFELY DISPOSE OF PRESCRIPTION [...] Call your local pharmacy or go to [email or web address] to find one close to you.3.Make use of household items: Use cat litter or old coffee grounds to dispose medications if other options arenot available. Mix your drugs with these household products, seal them in an airtight container andthrow it into the garbage. Call [facility]: [phone] to be sure your drugs can be [...] Care, Care After Colonoscopy, Adult, Care After, Bwch-zu-Rwfq Medication Leaflets My discharge plan and instructions have been reviewed and explained to me and I,CECY HONG understand my current condition and have read and understand these discharge instructions. I have received a written copy of the plan/instructions. If I have questions, I am aware that I should contactmy doctor. Patient/Development Spec Signature: Date/Time: Relationship to Patient: Witness Name/Signature: Date/Time: [facility]11-14-2022 Note Patient: CECY HONG Age: 61 years Sex: Female : 1960 Associated Diagnoses: None Author: BEATA PRYOR APRN-MARIALUISA Assessment Postanesthesia assessment Vitals: Vital signs from [...] by BEATA PRYOR on 03/09/2022 10:37 AM [facility]11-14-2022 Note Patient: CECY HONG Age: 61 years Sex: Female : 1960 Associated Diagnoses: None Author: BEATA PRYOR Preoperative Information Time of last solid food [...] Diabetes Mother Procedure history: Diverticulosis of colon (0342219706). delivery (4666340151). Carpal tunnel (886295005). Neuroma of foot (5505979568). Comments: 03/09/2022 9:33 EST - DemiterJanneth RN left foot. Hysteroscopy (741841269). Colonoscopy (630579863). 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 Performed Charge Hand 1 SN - CAt - Role Performed Front Desk Lead 03/09/2022 10:17 EST [place] History and Physical 03/09/2022 9:38 EST Designated Person #1 We May Share PHI Designated Person #1 We May Share PHI Designated Person #1 Relationship Spouse Privacy Restrictions Requested None Height 165.1 cm Admission Weight 63.0 kg Weight Method Stated [place] Body Weight 57.00 kg Admission Body Mass [...] per patient Skin Temperature Warm Skin Description [place], Normal for ethnicity, Dry Skin Integrity Intact [...] Weeks No Weight Loss No 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 Consent Form Signed Yes Patient Dressed In Hospital gown History & Physical Update On Chart Yes History & Physical On Chart Yes Obstructive Sleep Apnea Assess Completed Yes Arrival Mode Ambulatory Glasses Yes Dentures N/A GI Prep Results Large amount Orientation Assessment Oriented x 4 Safety Brochure Information Reviewed Unable to complete [facility] Rios Video Viewed No Barriers to Learning None evident Teaching Method Explanation Teaching Evaluation No further teaching needed Preferred Written Language Albanian Preferred Spoken Language Albanian Information Given by Patient Patient's Current Physicians DR ANDERSON ( [facility] ) Belongings At Bedside Pants, Shirt, Shoes [...] Day Patient History . Assessment and Plan [place] [employer] Anesthesiologists (ASA) physical status classification: Class II. Anesthetic Preoperative Plan Anesthetic technique: MAC. Informed consent: signed by patient. Digitally Signed by BEATA PRYOR on 03/09/2022 10:20 AM [facility]11-14-2022 Note [facility] ADMISSION HISTORY AND PHYSICIAL CHIEF COMPLAINT: HISTORY OF PRESENT ILLNESS: REVIEW OF SYSTEMS: ACTIVE PROBLEMS: (2) Diverticula, colon (3082358537) Vertigo (0773854962) MEDICATIONS: Active Inpt Meds: None Active PRN Meds: None One Time Meds: None Active IV Meds: Lactated Ringers Infusion 1,000 mL (LR 1,000 mL) Start: 03/09/22 9:43:00 EST, Rate: 50 mL/hr, 03/09/22 9:43:00 EST ALLERGIES: (2) amoxicillin shellfish FAMILY HISTORY: SOCIAL HISTORY: PHYSICAL EXAM: VITALS: EmiruqHvxeXYOcdvwEISoP5YWF8ZqrwGl(kg) 03/09 09:3836.9--332876KN10/14 63.0 24 Hr Tmax: 36.9 at 03/09 [...] H&P unless noted below. Digitally Signed by ZBIGNIEW RYA MD on 03/09/2022 10:18 AM [facility]12-20-2021 NoteHNO ID: [id number] Author: Filiberto Benitez MD Service: ? Author Type: Physician Type: Progress Notes Filed: 07/12/2021 3:53 PM Note Text: This note was created using Biomedical Innovationriter. Subjective Cecy Hong is a 60 year [...] 0.66 GFR 60 mL/MIN (more content not included)...[facility]12-20-2021 History of Present illness Narrative* Filiberto Benitez MD - 04/14/2021 3:34 PM EST This note was created using [employer]is[employer]. Subjective Cecy Hong is a 60 year [...] day. Filiberto Benitez MD [facility] NotePatient Outreach (INTMMN) CECY HONG ([id number]) 1960 F Date Time Provider Department 11/15/20 FILIBERTO BENITEZ INTMMN During your visit today, we recorded the following information about you: Allergies As of Date: 11/15/2020 Noted Allergy Reaction AMOXICILLIN 02/26/2005 2 - Rash SHELLFISH 08/03/2006 11 - Vomiting Comments: shortness of breath Date Reviewed: 04/12/2020 Reviewed by: Khadra Luu LPN - Fully Assessed Visit Diagnosis:Encounter for screening mammogram for breast cancer [Z12.31] Order(s):[facility] SCREENING [[id number]] Order #: [id number] FUTURE Prescriptions as of 11/18/2020 - levothyroxine [...] *08/11/2016 Encounter Status:Closed by EPIC, PRODUSER on 11/18/20[facility] 04-30-2007 History of Past illness Narrative* Problem Noted Date Resolved Date MASS IN BREAST 04/30/2007 02/10/2011 Irregular menstrual cycle 2010 Overview: Irregular periods CTS (carpal tunnel syndrome) 05/2013 Overview: bilaterally; NCT done 07/05 documented as of this encounter (statuses as of 07/12/2021) [facility] Diagnosis Routine medical exam- Primary Routine general medical examination at a health care facility Acquired hypothyroidism Unspecified hypothyroidism Vitamin D deficiency Unspecified vitamin D deficiency Mixed hyperlipidemia Encounter for long-term current use of medication Cervical neck pain with evidence of disc disease Other and unspecified disc disorder of cervical region documented in this encounter [facility] note* Diagnosis Onset Date Resolution Status Dense breast tissue acute Family history of breast cancer acute Health care maintenance acut e Hyperlipidemia chronic Hypothyroidism chronic [facility] Work Phone: Evaluation noteNo assessment information available [facility] Work Phone: Evaluation note* Diagnosis Onset Date Resolution Status Cough acute Sinusitis, acute acute Health care maintenance acut e Osteopenia acute Hyperlipidemia chronic Hypothyroidism chronic [facility] Work Phone: Evaluation note* Diagnosis Onset Date Resolution Status Family history of first degr ee relative with bicuspid aortic valve acute Health care maintenance acut e Hyperlipidemia chronic Hypothyroidism chronic Osteopenia chronic [facility] Work Phone: Evaluation note* Diagnosis Onset Date Resolution Status URI (upper respiratory infection) acute Family history of breast cancer acute Dyspareunia chronic Encounter for routine gynecological examination noneactive [facility] Work Phone: Hospital course Narrative No data available for this section [facility] Reason for referral (narrative)No reason for referral [facility] Work Phone: Summary Purpose Family History No Family History [...] bladder Unk nown Bicuspid aortic valve Unknown Relationship Condition Age at Onset Recorded Date/T kathy mother Diabetes mellitus Unknown Hypertension Unknown Arthritis Unknown Myocardial infarction 86 Disorder of thyroid Unknown father Malignant neoplasm Unknown grandmother Malignant neoplasm of breast Unknown aunt Malignant neoplasm of breast Unknown unrelated friend Malignant neoplasm of ovary Unknown sister Disorder of thyroid Unknown Thrombocythemia Unknown brother Malignant neoplasm o f urinary bladder Unknown Bicuspid aortic valve Unknown Advance Directives No Advanced Directives Records FoundNo Advanced Directives Records FoundNo Advanced Directives Records Found Chief Complaint and Reason for Visit Chief Complaint Annual (APPLICATION TESTER) Amb Documentation N/P, EST. 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 Annual (APPLICATION TESTER) box Reason for Visit URI (upper respirato ry infection) Family history of breast cancer Dyspareunia Encounter for routine gynecological examination Chief Complaint Admit Date Annual (APPLICATION TESTER) August 25, 2024 2:25pm YEARLY October 13, 2024 8:09 am Reason for Visit Admit Date Family history of breast cancer August 25, 2024 2:25pm Dyspareunia August 25, 2024 2:25pm Encounter for routine gynecological exam ination August 25, 2024 2:25pm Additional Source Comments Source Comments (unrecognize d section and content) In the event this informatio n is protected by the [facility] Confidentiality of Alcohol and Drug Abuse Patient Records regulations: The Federal rules restrict any use of the information to criminally investigate or prosecute any alcohol or drug abuse patient.[facility] Reason for Visit (unrecogniz ed section and content) Reason Comments Yearly Exam Care Teams (unrecognized sec tion and content) Critical Care Registered Nurse Relationship Specialty Start Date End Date Juanita Anderson MD [address] [place] [phone] PCP - General Internal Medicine 04/14/21 Team [...] Provider, Refer ring Provider Active Leonardo Carlos [employer]BER OF THE [employer]GIS[employer]IVE [employer], [employer]-C Attending Provider Active Team Status: Active Member Role Status Dates Dr. Juanita Anderson MD Primary Care Provider Active Dr. Jeanne Barrios MD Attending Provider Active Team Status: Inactive Member Role Status Dates Dr. Juanita Anderson MD Primary Care Provider Active Dr. Jeanne Barrios MD Attending Provider Active Team Status: Inactive Member Role Status Dates Dr. Juanita Anderson MD Primary Care Provider Active Start: August 25, 2024 End: August 25, 2024 Dr. Juanita Anderson MD Referring Provider Active Start: August 25, 2024 End: August 25, 2024 Dr. Jeanne Barrios MD Attending Provider Active Start: August 25, 2024 End: August 25, 2024 Team Status: Inactive Member Role Status Dates Dr. Juanita Anderson MD Primary Care Provider Active Start: October 13, 2024 End: October 13, 2024 Dr. Juanita Anderson MD Attending Provider Active Start: October 13, 2024 End: October 13, 2024 Dr. Juanita Anderson MD Referring Provider Active Start: October 13, 2024 End: October 13, 2024 Team Status: Active Member Role Status Dates Dr. Juanita Anderson MD Primary Care Provider Active Start: October 13, 2024 Dr. Juanita Anderson MD Attending Provider Active Start: October 13, 2024 Dr. Juanita Anderson MD Referring Provider Active Start: October 13, 2024 INFORMATION SOURCE (unrecogn ized section and content) DATE CREATED AUTHOR 07/12/2021 [facility] DATE CREATED AUTHOR AUTHOR'S ORGANIZ ATION 03/16/2022 [facility] ([place]) DATE CREATED AUTHOR AUTHOR'S ORGANIZ ATION 10/16/2024 [facility] Goals (unrecognized section and content) [...] Member Role: Primary Care Physician Address: Address: [address] [place] [address] EVELINA CHEEMA [address]- Care Team Related Persons Name: LILLIAM HONG Address: Home [address] [place] [address] [place] [address] FOR RECORDS PERTAINING TO PATIENTS WHO ARE [...] BE BASED ON THE PRIMARY CLINICAL RECORDS. [facility]. provides no warranty or guarantee of the accuracy or completeness of information in this document.
== END | disposition home or self-care (01) ==
LOC: MTRAD 11:05
PROVIDERS: PCP Internal Medicine; Referring Provider Internal Medicine; Visit Provider Internal Medicine
DX: M25.561 Pain in right knee (principal)
CPT/HCPCS: 73562

== ENCOUNTER → 2025-02-09 | Outpatient (CLI) | payer OTHER, SELFPAY ==
--- NOTE | 2025-02-09 10:15 | BI_ITS ---
EXAM: SCRN MAMM (CAD)W/YISEL BILAT DATE: 02/09/2025 CLINICAL HISTORY: F, Age 64 y/o , SCREENING MAMMOGRAM TECHNIQUE: Procedure Code: [id number] Modality: MG Procedure: SCRN MAMM (CAD)W/YISEL BILAT COMPARISON: Prior exam(s) dated 02/09/2024, 01/28/2023. FINDINGS: TISSUE DENSITY: There are scattered areas of fibroglandular density. Bilateral Breast Mammographic Findings: No significant masses, calcifications or other abnormalities are identified. BI/SCRN MAMM (CAD)W/YISEL BILAT IMPRESSION: There is no mammographic evidence of malignancy. OVERALL FINAL ASSESSMENT BI-RADS 1: NEGATIVE. RECOMMENDATION: Routine annual follow-up in 1 Year Additional Recommendation none A letter with findings and recommendations will be mailed to the patient. Reading Location: [id number]
== END | disposition home or self-care (01) ==
LOC: OPBI 10:07
PROVIDERS: PCP Internal Medicine; Referring Provider Obstetrics & Gynecology; Visit Provider Obstetrics & Gynecology
DX: Z12.31 Encounter for screening mammogram for malignant neoplasm of breast (principal)
CPT/HCPCS: 77063; 77067